=== PATIENT | male | born 1960 | race Caucasian/White ===

== ENCOUNTER → 2017-09-04 19:59 | Outpatient (CLI) | payer MEDICARE ==
[2017-09-04 20:25] LABS: APPEARANCE HAZY (CLEAR); BILIRUBIN NEGATIVE (NEGATIVE); COLOR YELLOW (YELLOW); GLUCOSE NEGATIVE (NEGATIVE); KETONE NEGATIVE (NEGATIVE); NITRITE NEGATIVE (NEGATIVE); PROTEIN NEGATIVE (NEGATIVE); UROBILINOGEN NORMAL (NORMAL)
[2017-09-04 20:27] LABS: BACTERIA FEW /hpf (NONE SEEN)
[2017-09-04 20:39] LABS: INR 2.87 (0.85-1.17); PROTIME 29.4 SECONDS (11.6-15.0)
== END | disposition home or self-care (01) ==
LOC: D.LABREF 19:59
PROVIDERS: Internal Medicine Cardiovascular Disease
DX: N39.0 Urinary tract infection, site not specified (principal)

== ENCOUNTER → 2017-10-05 18:54 | Outpatient (CLI) | payer SELFPAY ==
[2017-10-05 20:47] LABS: PROTIME 55.8 SECONDS (11.6-15.0)
[2017-10-05 20:48] LABS: INR 6.49 (0.85-1.17)
== END | disposition home or self-care (01) ==
LOC: D.LABREF 18:54
PROVIDERS: Family Medicine
DX: I48.91 Unspecified atrial fibrillation (principal)

== ENCOUNTER → 2017-10-08 13:52 | Outpatient (CLI) | payer SELFPAY ==
[2017-10-08 15:02] LABS: INR 2.99 (0.85-1.17); PROTIME 30.3 SECONDS (11.6-15.0)
[2017-10-08 19:58] LABS: APPEARANCE HAZY (CLEAR); BILIRUBIN NEGATIVE (NEGATIVE); COLOR YELLOW (YELLOW); GLUCOSE NEGATIVE (NEGATIVE); KETONE NEGATIVE (NEGATIVE); NITRITE NEGATIVE (NEGATIVE); PROTEIN TRACE mg/dL (NEGATIVE); UROBILINOGEN NORMAL (NORMAL)
[2017-10-08 19:59] LABS: BACTERIA FEW /hpf (NONE SEEN); EPITHELIAL CELLS RARE /hpf (0-5); RED CELLS - URINE 0-5 /hpf (0-5)
== END | disposition home or self-care (01) ==
LOC: D.LABREF 13:52
PROVIDERS: Internal Medicine Cardiovascular Disease
DX: I48.91 Unspecified atrial fibrillation (principal)

== ENCOUNTER → 2017-10-13 18:31 | Outpatient (CLI) | payer SELFPAY ==
[2017-10-13 19:16] LABS: INR 1.83 (0.85-1.17); PROTIME 20.6 SECONDS (11.6-15.0)
== END | disposition home or self-care (01) ==
LOC: D.LABREF 18:31
PROVIDERS: Internal Medicine Cardiovascular Disease
DX: I48.91 Unspecified atrial fibrillation (principal)

== ENCOUNTER → 2017-10-19 17:02 | Outpatient (CLI) | payer OTHER ==
[2017-10-19 19:09] LABS: INR 3.13 (0.85-1.17); PROTIME 31.4 SECONDS (11.6-15.0)
== END | disposition home or self-care (01) ==
LOC: D.LABREF 17:02
PROVIDERS: Internal Medicine Cardiovascular Disease
DX: I48.91 Unspecified atrial fibrillation (principal)

== ENCOUNTER → 2017-10-29 18:10 | Outpatient (CLI) | payer OTHER ==
[2017-10-29 19:26] LABS: APPEARANCE HAZY (CLEAR); BILIRUBIN NEGATIVE (NEGATIVE); COLOR AMBER (YELLOW); GLUCOSE NEGATIVE (NEGATIVE); KETONE NEGATIVE (NEGATIVE); NITRITE POSITIVE (NEGATIVE); PROTEIN 1+ mg/dL (NEGATIVE); SPECIFIC GRAVITY 1.005 (1.005-1.020); UROBILINOGEN NORMAL (NORMAL)
[2017-10-29 19:28] LABS: AMORPHOUS SEDIMENT <1+ /lpf (NONE SEEN); BACTERIA MODERATE /hpf (NONE SEEN)
== END | disposition home or self-care (01) ==
LOC: D.LABREF 18:10
PROVIDERS: Family Medicine
DX: N39.0 Urinary tract infection, site not specified (principal)

== ENCOUNTER → 2017-11-02 19:55 | Outpatient (CLI) | payer OTHER ==
[2017-11-02 21:44] LABS: INR 2.06 (0.85-1.17); PROTIME 22.6 SECONDS (11.6-15.0)
== END | disposition home or self-care (01) ==
LOC: D.LABREF 19:55
PROVIDERS: Internal Medicine Cardiovascular Disease
DX: I48.91 Unspecified atrial fibrillation (principal)

== ENCOUNTER → 2017-11-12 15:14 | Outpatient (CLI) | payer OTHER ==
[2017-11-12 16:22] LABS: INR 1.79 (0.85-1.17); PROTIME 20.3 SECONDS (11.6-15.0)
== END | disposition home or self-care (01) ==
LOC: D.LABREF 15:14
PROVIDERS: Internal Medicine Cardiovascular Disease
DX: I48.91 Unspecified atrial fibrillation (principal)

== ENCOUNTER → 2017-11-23 13:39 | Outpatient (CLI) | payer OTHER ==
[2017-11-23 14:22] LABS: APPEARANCE SLT CLOUDY (CLEAR); BACTERIA MODERATE /hpf (NONE SEEN); BILIRUBIN NEGATIVE (NEGATIVE); COLOR YELLOW (YELLOW); EPITHELIAL CELLS OCC /hpf (0-5); GLUCOSE NEGATIVE (NEGATIVE); KETONE NEGATIVE (NEGATIVE); MUCUS <1+ /lpf (NONE SEEN); NITRITE NEGATIVE (NEGATIVE); PROTEIN NEGATIVE (NEGATIVE); SPECIFIC GRAVITY 1.015 (1.005-1.020); UROBILINOGEN NORMAL (NORMAL); WHITE CELLS - URINE 25-50 /hpf (0-5); YEAST >1+ WITH HYPHAE /hpf (NONE SEEN)
== END | disposition home or self-care (01) ==
LOC: D.LABREF 13:39
PROVIDERS: Family Medicine
DX: N39.0 Urinary tract infection, site not specified (principal)

== ENCOUNTER → 2017-11-24 12:57 | Outpatient (CLI) | payer OTHER ==
[2017-11-25 14:07] LABS: INR 2.15 (0.85-1.17); PROTIME 23.4 SECONDS (11.6-15.0)
== END | disposition home or self-care (01) ==
LOC: D.LABREF 12:57
PROVIDERS: Family Medicine
DX: I48.91 Unspecified atrial fibrillation (principal)

== ENCOUNTER → 2017-11-30 15:00 | Outpatient (CLI) | payer OTHER ==
[2017-12-01 07:23] LABS: INR 2.58 (0.85-1.17)
== END ==
LOC: D.ER 15:00
PROVIDERS: Internal Medicine Cardiovascular Disease
DX: Z86.711 Personal history of pulmonary embolism (principal)

== ENCOUNTER → 2017-12-07 16:45 | Outpatient (CLI) | payer OTHER ==
[2017-12-07 20:55] LABS: INR 4.47 (0.85-1.17); PROTIME 41.7 SECONDS (11.6-15.0)
== END | disposition home or self-care (01) ==
LOC: D.LAB 16:45
PROVIDERS: Family Medicine
DX: Z51.81 Encounter for therapeutic drug level monitoring (principal); Z79.01 Long term (current) use of anticoagulants

== ENCOUNTER → 2018-01-04 21:35 | Outpatient (CLI) | payer OTHER ==
[2018-01-04 23:04] LABS: INR 2.59 (0.85-1.17)
== END | disposition home or self-care (01) ==
LOC: D.LABREF 21:35
PROVIDERS: Internal Medicine Cardiovascular Disease
DX: I48.91 Unspecified atrial fibrillation (principal)

== ENCOUNTER → 2018-02-05 12:26 | Outpatient (CLI) | payer MEDICARE, MEDICAID ==
[2018-02-05 13:01] LABS: INR 2.18 (0.85-1.17); PROTIME 23.6 SECONDS (11.6-15.0)
== END | disposition home or self-care (01) ==
LOC: D.LABREF 12:26
PROVIDERS: Internal Medicine Cardiovascular Disease
DX: Z51.81 Encounter for therapeutic drug level monitoring (principal); Z79.01 Long term (current) use of anticoagulants; I48.91 Unspecified atrial fibrillation

== ENCOUNTER → 2018-03-03 19:32 | Outpatient (CLI) | payer MEDICARE, MEDICAID ==
[2018-03-03 21:01] LABS: COLOR YELLOW (YELLOW)
[2018-03-03 21:02] LABS: AMORPHOUS SEDIMENT >1+ /lpf (NONE SEEN); APPEARANCE HAZY (CLEAR); BACTERIA FEW /hpf (NONE SEEN); BILIRUBIN NEGATIVE (NEGATIVE); EPITHELIAL CELLS RARE /hpf (0-5); GLUCOSE NEGATIVE (NEGATIVE); KETONE NEGATIVE (NEGATIVE); NITRITE POSITIVE (NEGATIVE); PROTEIN TRACE mg/dL (NEGATIVE); RED CELLS - URINE NONE SEEN /hpf (0-5); SPECIFIC GRAVITY 1.005 (1.005-1.020); UROBILINOGEN NORMAL (NORMAL)
== END | disposition home or self-care (01) ==
LOC: D.LABREF 19:32
PROVIDERS: Family Medicine
DX: Z46.6 Encounter for fitting and adjustment of urinary device (principal); N31.9 Neuromuscular dysfunction of bladder, unspecified; Z87.440 Personal history of urinary (tract) infections

== ENCOUNTER → 2018-06-15 09:26 | Outpatient (CLI) | payer MEDICARE, MEDICAID ==
[2018-06-15 09:55] LABS: ALBUMIN 2.4 g/dL (3.4-5.0); ANION GAP 13.3 mmol/L (8-16); BILIRUBIN - TOTAL 0.31 mg/dL (0.2-1.3); CALCIUM 8.4 mg/dL (8.5-10.1); CARBON DIOXIDE 22.9 mmol/L (21.0-32.0); CREATININE - SERUM 1.8 mg/dL (0.6-1.3); POTASSIUM - SERUM 5.2 mmol/L (3.5-5.1); PROTEIN - SERUM 7.5 g/dL (6.4-8.2)
== END | disposition home or self-care (01) ==
LOC: D.LABREF 09:26
PROVIDERS: Family Medicine
DX: E87.6 Hypokalemia (principal); I50.9 Heart failure, unspecified

== ENCOUNTER → 2018-07-05 12:12 | Outpatient (CLI) | payer MEDICARE, MEDICAID ==
[2018-07-05 13:10] LABS: ANION GAP 11.1 mmol/L (8-16); CALCIUM 8.4 mg/dL (8.5-10.1); CARBON DIOXIDE 26.6 mmol/L (21.0-32.0); CREATININE - SERUM 1.6 mg/dL (0.6-1.3); POTASSIUM - SERUM 3.7 mmol/L (3.5-5.1)
== END | disposition home or self-care (01) ==
LOC: D.LABREF 12:12
PROVIDERS: Family Medicine
DX: E87.5 Hyperkalemia (principal); I48.91 Unspecified atrial fibrillation; I50.9 Heart failure, unspecified

== ENCOUNTER → 2018-09-09 13:26 | Outpatient (CLI) | payer MEDICARE, MEDICAID ==
[2018-09-19 16:07] LABS: AEROBE ID Final report (())
== END | disposition home or self-care (01) ==
LOC: D.LABREF 13:26
PROVIDERS: Family Medicine
DX: R30.0 Dysuria (principal); R50.9 Fever, unspecified

== ENCOUNTER → 2018-10-27 12:59 | Outpatient (CLI) | payer MEDICARE ==
[2018-10-27 16:39] LABS: APPEARANCE HAZY (CLEAR); BILIRUBIN NEGATIVE (NEGATIVE); COLOR YELLOW (YELLOW); GLUCOSE NEGATIVE (NEGATIVE); KETONE NEGATIVE (NEGATIVE); NITRITE POSITIVE (NEGATIVE); PROTEIN 1+ mg/dL (NEGATIVE); UROBILINOGEN NORMAL (NORMAL)
[2018-10-27 16:40] LABS: BACTERIA MANY /hpf (NONE SEEN); RED CELLS - URINE 0-5 /hpf (0-5); WHITE CELLS - URINE >50 /hpf (0-5)
== END | disposition home or self-care (01) ==
LOC: D.LABREF 12:59
PROVIDERS: ATTEND Family Medicine
DX: N23 Unspecified renal colic (principal); Z87.440 Personal history of urinary (tract) infections

== ENCOUNTER → 2019-01-04 18:15 | Outpatient (CLI) | payer MEDICARE | END | disposition home or self-care (01) | LOC: D.LABREF 18:15 | PROVIDERS: ATTEND Nurse Practitioner Gerontology | DX: R33.9 Retention of urine, unspecified (principal); R82.90 Unspecified abnormal findings in urine ==

== ENCOUNTER 2019-03-09 23:26 | Inpatient (IN) | payer MEDICARE, MEDICAID ==
[~2019-03-09] VITALS: Ht 193 cm; Wt 126.9 kg
[2019-03-09] MEDS ORDERED: BAYER CHEWABLE81 MG PO (23:49)
[2019-03-09] MEDS ORDERED: ZYLOPRIM100 MG PO (23:49)
[2019-03-09] MEDS ORDERED: COREG 3.1253.125 MG PO (23:49)
[2019-03-09] MEDS ORDERED: BUMETANIDE0.5 MG PO (23:49)
[2019-03-09] MEDS ORDERED: LIPITOR40 MG PO (23:49)
[2019-03-09] MEDS ORDERED: CELEXA20 MG PO (23:50)
[2019-03-09] MEDS ORDERED: HYDROCODON-ACE1 EAC7 PO (23:50)
[2019-03-09] MEDS ORDERED: ENTRESTO 24 MG1 EACH PO (23:50)
[2019-03-09] MEDS ORDERED: MAGNESIUM OXID250 MG PO (23:50)
[2019-03-09] MEDS ORDERED: KEPPRA500 MG PO (23:50)
[2019-03-09] MEDS ORDERED: K-DUR20 MEQ PO (23:51)
[2019-03-09] MEDS ORDERED: ATHLETE'S FOOT15 GM TOPICAL (23:51)
[2019-03-09] MEDS ORDERED: COUMADIN5 MG PO (23:51)
[2019-03-09] MEDS ORDERED: FLOMAX0.4 MG PO (23:51)
[2019-03-10 00:25] LABS: BASOPHILS 0.1 % (0-2); EOSINOPHILS 0.1 % (0-7); HEMATOCRIT 26.3 % (42.0-54.0); HEMOGLOBIN 8.8 g/dL (13.5-17.5); IMMATURE GRANULOCYTES 0.3 % (0-5); LYMPHOCYTES 9.6 % (15-50); MCH 31.3 pg (26.0-34.0); MCHC 33.5 g/dL (31.0-37.0); MCV 93.6 fL (80.0-100.0); MEAN PLATELET VOLUME 11.9 fL (7.4-10.4); MONOCYTES 11.1 % (2-11); NEUTROPHILS 78.8 % (40-80); PLATELET COUNT 229 10x3/uL (130-400); RBC 2.81 10x6/uL (4.20-6.10); RDW 16.8 % (11.5-14.5); WBC 19.8 10x3/uL (4.8-10.8)
[2019-03-10 00:33] LABS: ALKALINE PHOSPHATASE 146 U/L (46-116); ALT (SGPT) 473 U/L (10-68); CALC OSMOLALITY 286 mosm/kg (275-300); CALCIUM 7.2 mg/dL (8.5-10.1); CARBON DIOXIDE 21.2 mmol/L (21.0-32.0); CHLORIDE - SERUM 108 mmol/L (98-107); CREATININE - SERUM 1.6 mg/dL (0.6-1.3); PROTEIN - SERUM 6.7 g/dL (6.4-8.2); SODIUM 139 mmol/L (136-145); UREA NITROGEN 28 mg/dL (7-18); eGFR NON AFRICAN AMERICAN 48 mL/min (90-120)
[2019-03-10 00:36] LABS: GLUCOSE 146 mg/dL (74-106)
[2019-03-10 00:40] LABS: APTT 45.4 SECONDS (22.8-39.4); INR 2.33 (0.85-1.17); PROTIME 24.8 SECONDS (11.6-15.0)
[2019-03-10 00:45] LABS: CKMB 0.5 U/L (0.0-3.6); CREATINE KINASE 21 UL (21-232); MAGNESIUM - SERUM 1.7 mg/dL (1.8-2.4); THYROID STIMULATING HORMONE 1.62 uIU/mL (0.36-3.74); TROPONIN-I 0.052 ng/mL (0.000-0.060)
--- NOTE | 2019-03-10 00:47 | NUR ---
PT TO RADIOLOGY.
--- NOTE | 2019-03-10 01:24 | NUR ---
PT RETURNED FROM RADIOLOGY.
[2019-03-10 02:27] LABS: APPEARANCE CLOUDY (CLEAR); BILIRUBIN NEGATIVE (NEGATIVE); COLOR YELLOW (YELLOW); GLUCOSE NEGATIVE (NEGATIVE); KETONE NEGATIVE (NEGATIVE); NITRITE POSITIVE (NEGATIVE); PROTEIN 2+ mg/dL (NEGATIVE); SPECIFIC GRAVITY 1.015 (1.005-1.020); UROBILINOGEN NORMAL (NORMAL)
[2019-03-10 02:28] LABS: BACTERIA MANY /hpf (NONE SEEN); EPITHELIAL CELLS 0-5 /hpf (0-5); RED CELLS - URINE 0-5 /hpf (0-5); UDS - AMPHET NEGATIVE QUAL (NEGATIVE); UDS - BARB NEGATIVE QUAL (NEGATIVE); UDS - BENZO NEGATIVE QUAL (NEGATIVE); UDS - COCAINE NEGATIVE QUAL (NEGATIVE); UDS - OPIATE POSITIVE QUAL (NEGATIVE); UDS - PCP NEGATIVE QUAL (NEGATIVE); UDS - THC NEGATIVE QUAL (NEGATIVE)
[2019-03-10 04:39] VITALS: BP 130/90; BMI 42.7
--- NOTE | 2019-03-10 05:42 | NUR ---
I have reviewed this patient and I concur with the Shift Assessment completed by the Licensed Practical Nurse today this shift.
--- NOTE | 2019-03-10 08:10 | NUR ---
ROUSES TO VERBAL STIMULATION. ORIENTED TO SELF. NON VERBAL AT THIS TIME. DIFFICULT TO ASSESS ORIENTATION. LUNGS ARE CLEAR BILATERALLY, NO COUGH NOTED. SKIN IS INTACT WITHOUT REDNESS. STAHL PATENT WITH CLEAR YELLOW URINE. IV TO LEFT HAND IS PATENT WITHOUT REDNESS AT INSERTION SITE. NO NEEDS. NOTED.
--- NOTE | 2019-03-10 09:30 | NUR ---
PATIENT IS NPO FOR TESTING. NO NEEDS NOTED.
[2019-03-10 09:41] VITALS: BP 115/77
[2019-03-10 13:49] LABS: % SATURATION 8 % (15-55); IRON 11 ug/dl (35-150); TOTAL IRON BIND CAPACITY 128 ug/dl (260-445); UNSAT IRON BIND CAPACITY 117 ug/dl (150-375)
[2019-03-10 13:51] VITALS: BP 122/78
[2019-03-10 14:04] VITALS: BMI 42.6
--- NOTE | 2019-03-10 16:43 | NUR ---
2MG MORPHINE IV GIVEN PER DR DURHAM FOR [facility] SCAN.
--- NOTE | 2019-03-10 16:49 | NUR ---
PT REFUSED ABG
--- NOTE | 2019-03-10 17:00 | NUR ---
RETURNED FROM [facility] SCAN. YELLING OUT HE WANTS TO EAT. NO NEEDS. NOTED.
--- NOTE | 2019-03-10 21:00 | NUR ---
FSBS 103 NO INSULIN GIVEN AT THIS TIME PER SS.
[2019-03-10 21:13] VITALS: BP 107/68
[2019-03-11 00:29] VITALS: BP 93/63
--- NOTE | 2019-03-11 00:33 | NUR ---
PT RESTING IN BED. EYES CLOSED. NO SIGNS OF DISTRESS. BREATHING EVEN AND UNLABORED. IV SITE LT HAND DRESSING CLEAN DRY AND INTACT. NO SIGNS OF INFECTION. BOWEL SOUNDS ACTIVE. TELE MONITOR ON 9 CONT A-FIB. CHRONIC STAHL CATH. WILL CONTINUE PLAN OF CARE. CALL LIGHT IN REACH. BED LOWERED AND LOCKED. BED RAILS UPX2. TIMO ALARM ON.
--- NOTE | 2019-03-11 02:19 | NUR ---
I have reviewed this patient and I concur with the Shift Assessment completed by the Licensed Practical Nurse today this shift.
[2019-03-11 05:28] VITALS: BP 112/60
--- NOTE | 2019-03-11 06:24 | NUR ---
FSBS 86 NO INSULIN GIVEN PER SS.
[2019-03-11 07:28] LABS: ALBUMIN 1.7 g/dL (3.4-5.0); ANION GAP 13.6 mmol/L (8-16); BILIRUBIN - TOTAL 1.46 mg/dL (0.2-1.3); CALCIUM 7.3 mg/dL (8.5-10.1); CREATININE - SERUM 1.7 mg/dL (0.6-1.3); POTASSIUM - SERUM 3.6 mmol/L (3.5-5.1); PROTEIN - SERUM 6.3 g/dL (6.4-8.2)
[2019-03-11 07:35] LABS: HEMATOCRIT 28.2 % (42.0-54.0); HEMOGLOBIN 9.2 g/dL (13.5-17.5); MCH 30.9 pg (26.0-34.0); MCHC 32.6 g/dL (31.0-37.0); MCV 94.6 fL (80.0-100.0); MEAN PLATELET VOLUME 11.8 fL (7.4-10.4); PLATELET COUNT 196 10x3/uL (130-400); RBC 2.98 10x6/uL (4.20-6.10); WBC 24.4 10x3/uL (4.8-10.8)
[2019-03-11 08:03] LABS: INR 3.15 (0.85-1.17); PROTIME 31.6 SECONDS (11.6-15.0)
[2019-03-11 09:40] LABS: LYMPHOCYTES 9 % (15-50); MONOCYTES 16 % (2-11); NEUTROPHILS 74 % (40-80); PLATELET ESTIMATE NORMAL
[2019-03-11 09:42] LABS: ACANTHOCYTES OCC; CRENATED CELLS OCC; ROULEAUX OCC
[2019-03-11 10:43] VITALS: BP 101/61
[2019-03-11 11:10] LABS: HEPATITIS C ANTIBODY 0.1 S/CO RAT (0.0-0.9)
[2019-03-11 12:11] LABS: APTT 50.8 SECONDS (22.8-39.4)
--- NOTE | 2019-03-11 13:41 | NUR ---
2 UNITS OF FFP GIVEN TO PATIENT WITH NO DIFFICULTIES. PATIENT REPOSTIONED FOR COMFORT WITH EXCORIATION NOTED TO BILAT BUTTOCKS. REPORT CALLED TO MED 2 NURSE, PATIENT BEING TRANSPORTED DUE TO NEED FOR CARDIAC DRIP MEDICATIONS. PATIENT TAKEN BY BED TO ROOM 1115.
--- NOTE | 2019-03-11 14:11 | NUR ---
TRANSFERED FROM AL BY BED. BED WEIGHT DONE. DOBUTREX GTT STARTED. WILL CONT. PLAN OF CARE.
--- NOTE | 2019-03-11 15:13 | NUR ---
IV STARTED TO RIGHT WRIST WITH 22 GAUGE CATH BY GOLDIE WEINER. LINE IS PATENT.
--- NOTE | 2019-03-11 16:51 | CN ---
PATIENT NAME:YUKI COFFMAN MEDICAL RECORD: [id number] : 62 LOCATION:[facility] D.2115 ADMIT DATE: 03/10/19 ACCOUNT: [id number] CONSULTING PHYSICIAN: SHO SMITH MD REFERRING PHYSICIAN: FIGUEROA OTERO MD DATE OF CONSULTATION: 03/11/2019 CARDIOLOGY CONSULT DIAGNOSES: 1. Preoperative evaluation cholecystectomy. 2. Cholecystitis. 3. Dilated cardiomyopathy. 4. Congestive heart failure, chronic systolic dysfunction. 5. Hypertension. 6. Hyperlipidemia. HISTORY OF PRESENT ILLNESS: Mr. Coffman is followed by another mortgage loan officer. He could not tell me who. He has been told in the past that his heart function is not good. It is unknown if he has undergone cardiac catheterization or what workup he has had for this. We have not seen him in the past. He has an echocardiogram from 2010 here that was a normal ejection fraction, but he is on Coreg and Entresto as well as Coumadin for his heart. He is not a good historian and cannot tell me really any details of his cardiac workup. PHYSICAL EXAMINATION: GENERAL APPEARANCE: Well-nourished, well-developed, appears stated age. Level of distress, comfortable. PSYCHIATRIC: Mental status, alert, normal affect. Orientation, oriented to time, place and person. EYES: Lids and conjunctiva, noninjected. No discharge, no pallor. ENT: Lips, teeth, gums, normal dentition. Oropharynx, no cyanosis, no pallor. NECK: Carotid arteries, bilateral normal upstroke, no bruits, no thrills. JUGULAR VEINS: No jugular venous pressure or distention. CERVICAL LYMPH NODES: Nontender, nonenlarged. THYROID: Not enlarged. Nontender. No nodules. LUNGS: Respiratory effort, unlabored. CHEST: Normal curvature. No thoracic deformity. No chest wall tenderness. Percussion, resonant. Auscultation, clear. No wheezes, no rales, no rhonchi. CARDIOVASCULAR: Precordial exam, nondisplaced. No heaves or pericardial thrills. Rate and rhythm, regular. Heart sounds, normal S1, normal S2. No S3, no gallop, no rub. Systolic murmur, not heard. Diastolic murmur, not heard. EXTREMITIES: No cyanosis, no edema. Peripheral pulses, full and equal in all extremities, except as noted. No bruits appreciated. ABDOMEN: Soft, nondistended. Normal aorta. No bruit. Nontender. No masses. Liver, nontender, no hepatomegaly. Spleen, nontender, no splenomegaly. MUSCULOSKELETAL: No joint tenderness. No joint swelling. No erythema. NEUROLOGICAL: Normal gait, normal strength, normal tone. SKIN: Warm and dry. OVERALL IMPRESSION: Cardiomyopathy on echocardiogram here. His ejection fraction is in the 20% to 25% range. Proceed with surgery at acceptable cardiac risk. Would put him on dobutamine to get him through surgery and use as little IV fluids as possible to not exacerbate congestive heart failure and pulmonary edema. CONSULT REPORT [id number] YUKI COFFMAN TRANSINT:[id number] Voice Confirmation ID: [id number] DOCUMENT ID: [id number] SHO SMITH MD at 1651 CC: [id number] DICTATION DATE: 03/11/19 1136 GROMMET WORKER: 03/11/19 1244 ADM IN [facility] [address] [place] [id number]
--- NOTE | 2019-03-11 16:51 | EC ---
PATIENT:YUKI ESPINOZA DATE OF SERVICE: 03/10/19 SEX: M MEDICAL RECORD: [id number] DATE OF : 62 LOCATION:D.M2 D.211 AGE OF PATIENT: 58 ADMISSION DATE: 03/10/19 REFERRING PHYSICIAN: INTERPRETING PHYSICIAN: SHO CHAPA MD ECHOCARDIOGRAM REPORT ECHO CHARGES 4 ECHO COMPLETE Date: 03/10/19 CLINICAL DIAGNOSIS: CHF ECHOCARDIOGRAPHIC MEASUREMENTS (adult normal given) AC root (d.<3.7cm) 3.7 cm LV Septum d (<1.2 cm> 1.3 cm Valve Excursion 2.4 cm LV Septum (systole) 2.3 cm Left Atria (s.<4.0cm> 5.2 cm LVPW d(<1.2cm) 1.7 cm RV (d.<2.3cm) 3.5 cm LVPW (sytole) 2.2 cm LV diastole(<5.6CM) 6.5 cm MV E-F(>70mm/sec) cm LV systole 4.3 cm LVOT Diameter 2.3 cm MV exc.(>10mm) cm Est.ejection fraction (50-75%) % DOPPLER: LVIT cm/sec A 38.0 cm/sec E 100 cm/sec LA cm/sec RVSP 38.2 mmHg LVOT 74.0 cm/sec AOP1/2T m/s Asc. Ao 127 cm/sec RVOT 61.0 cm/sec RA cm/sec PA 82.0 cm/sec AV Gradient Peak 6.4 mmHg AV Mean 3.7 mmHg AV Area 2.9 cm MV Gradient Peak 4.2 mmHg MV Mean 1.5 mmHg MV Area cm COMMENTS: Clinical Education Assistant: Jacqueline LOWERYOE External Auditor: 1 Dr. Chapa TAPE# PACS Pericardial Effusion Y DATE OF SERVICE: 03/10/2019 PROCEDURE: Echocardiogram. FINDINGS: 1. Left ventricular chamber size is mildly dilated. Left ventricular systolic function is markedly reduced at 25%. 2. Left atrium is enlarged at 5.2 cm. Right atrium and right ventricular chamber sizes are as well mildly dilated. 3. Valvular structures have normal structure and motion. ECHOCARDIOGRAM REPORT [id number] YUKI ESPINOZA 4. Doppler interrogation reveals moderate mitral regurgitation, moderate tricuspid regurgitation, no other valvular insufficiency or stenosis. Pulmonary systolic pressure is estimated 38 mmHg. 5. Small pericardial effusion is present. This is not hemodynamically significant. TRANSINT:[id number] Voice Confirmation ID: [id number] DOCUMENT ID: [id number] SHO CHAPA MD at 1651 CC: [id number] DICTATION DATE: 03/11/19 1049 ACCESS ANALYST: 03/11/19 1104 ADM IN [place] [id number] [place] [id number]
[2019-03-11 17:31] VITALS: BP 124/79
[2019-03-11 20:00] VITALS: BP 125/78
[2019-03-12] VITALS: BP 109/68
[2019-03-12 04:30] VITALS: BP 101/59
--- NOTE | 2019-03-12 06:00 | NUR ---
PT SLEPT WELL AFTER HE MADE IT VERY CLEAR THAT HE WAS HURTING AND WANTED PAIN MED DURING THE NIGHT. IV DILAUDID GIVEN AND PT HELD NURSES HAND AND SAID "THANK YOU". STAHL PATENT TO BEDSIDE DRAIN BAG. IV DOBUTAMINE INFUSING AT 38.8ML/HR. TURNED EVERY 2 HOURS. PT DID REFUSE AM LABS, BUT ALLOWED NURSE TO DO FSBS. REPORT TO ONCOMING NURSE TO FOLLOW UP ON IF PT IS TRULY NPO OR IF HE CAN HAVE A DIET. CALL LIGHT IN REACH.
--- NOTE | 2019-03-12 07:15 | NUR ---
RECEIVED PT IN BED EYES CLOSED RESP UNLABORED SKIN W/D COLOR PALE NAD NOTED WILL CONTINUE TO MONITOR
[2019-03-12 08:06] VITALS: BP 101/69
[2019-03-12 12:26] VITALS: BP 114/73
--- NOTE | 2019-03-12 12:30 | NUR ---
REVIEWED DISCHARGE INSTRUCTIONS WITH PT STATES UNDERSTANDING COPY GIVEN DCD SALINE LOCK TO LFA WITH IV CATHETER INTACT SITE FREE OF REDNESS OR EDEMA PT DISCHARGED HOME LEFT UNIT STABLE CONDITION IN WALKING WITH STAFF TO ER TO BE PICKED UP ALL PERSONAL BELONGINGS WITH PT
--- NOTE | 2019-03-12 15:32 | MORECARE ---
CASE MANAGEMENT DISCHARGE SUMMARY PATIENT: YUKI ESPINOZA UNIT: [id number] ADM DATE: 03/10/19 AGE: 58 : 62 SEX: M ROOM/BED: D.2115 AUTHOR: SUYAPA VEAG PHYSICIAN: REFERRING PHYSICIAN: FIGUEROA OTERO MD DATE OF SERVICE: 03/12/19 Discharge Plan Patient Name: YUKI ESPINOZA Facility: [facility]:[place] : 1960 Planned Disposition: Anticipated Discharge Date: Discharge Date: Expected LOS: Initial Reviewer: [email or web address] Initial Review Date: 03/12/2019 Generated: 03/12/19 4:32 pm Patient Name: YUKI ESPINOZA Page [phone] at 1532 All edits/amendments must be made on the electronic document DICTATION DATE: 03/12/19 1532 WAREHOUSE UNLOADER: SHAHANA 03/12/19 1532 RPT#: [id number] DC DATE: STATUS: ADM IN [facility] [address] [place] [address] END OF REPORT
[2019-03-12 15:59] VITALS: BP 110/78
[2019-03-12 18:22] LABS: BASOPHILS 0 % (0-2); EOSINOPHILS 0.1 % (0-7); HEMATOCRIT 26.5 % (42.0-54.0); HEMOGLOBIN 8.8 g/dL (13.5-17.5); IMMATURE GRANULOCYTES 0.4 % (0-5); LYMPHOCYTES 4.1 % (15-50); MCH 31.2 pg (26.0-34.0); MCHC 33.2 g/dL (31.0-37.0); MEAN PLATELET VOLUME 11.3 fL (7.4-10.4); MONOCYTES 8.2 % (2-11); NEUTROPHILS 87.2 % (40-80); PLATELET COUNT 189 10x3/uL (130-400); RBC 2.82 10x6/uL (4.20-6.10); RDW 16.6 % (11.5-14.5); WBC 21.9 10x3/uL (4.8-10.8)
[2019-03-12 18:40] LABS: ANION GAP 11.7 mmol/L (8-16); BILIRUBIN - TOTAL 2.28 mg/dL (0.2-1.3); CALCIUM 7.2 mg/dL (8.5-10.1); CARBON DIOXIDE 23.7 mmol/L (21.0-32.0); POTASSIUM - SERUM 3.4 mmol/L (3.5-5.1)
[2019-03-12 18:41] LABS: INR 1.85 (0.85-1.17); PROTIME 20.7 SECONDS (11.6-15.0)
--- NOTE | 2019-03-12 19:59 | NUR ---
INITIAL ROUNDS AND ASSESSMENT COMPLETED. PT RESTING IN BED. VERY ANXIOUS, DIFFICULTY EXPRESSING HIMSELF. UCAF/109 PER TELEMETRY. DOBUTAMINE DRIP AT 10MCG/KG/MIN INFUSING TO RFA. LEFT HAND WITH NS @ KVO AND IRON FINISHING UP. NONLABORED RESPIRATIONS ON ROOM AIR. NOTED LEFT HEEL SPONGY TO TONGUE, ELEVATED OFF BED. SPOKE WITH IS SUPPORT ANALYST ABOUT EXCORIATION OF REAR AND APPLYING BUTT CREAM OR ELLEN EVERY TIME CARE IS PROVIDED. STAHL PATENT TO BEDSIDE DRAIN. WILL MONITOR LEVEL OF PAIN/DISCOMFORT AND TREAT. CPOC.
[2019-03-12 20:00] VITALS: BP 117/64
[2019-03-13] VITALS: BP 122/59
--- NOTE | 2019-03-13 01:42 | NUR ---
PT HAS SLEPT SINCE RECIEVING IV PAIN MED. IV DOBUTAMINE INFUSING. NO DISTRESS. LEFT HEEL BRIDGED. ELLEN HAS BEEN APPLIED TO HIS EXCORIATED REAR END. CPOC.
[2019-03-13 04:30] VITALS: BP 106/62
[2019-03-13 07:18] LABS: HEMOGLOBIN 8.4 g/dL (13.5-17.5); MCH 30.7 pg (26.0-34.0); MCHC 32.3 g/dL (31.0-37.0); MCV 94.9 fL (80.0-100.0); MEAN PLATELET VOLUME 11.5 fL (7.4-10.4); PLATELET COUNT 181 10x3/uL (130-400); RBC 2.74 10x6/uL (4.20-6.10); RDW 16.8 % (11.5-14.5); WBC 20.4 10x3/uL (4.8-10.8)
[2019-03-13 07:30] LABS: ALBUMIN 1.8 g/dL (3.4-5.0); ANION GAP 10.3 mmol/L (8-16); BILIRUBIN - TOTAL 2.01 mg/dL (0.2-1.3); CALCIUM 7.2 mg/dL (8.5-10.1); POTASSIUM - SERUM 3.3 mmol/L (3.5-5.1); PROTEIN - SERUM 5.6 g/dL (6.4-8.2)
[2019-03-13 07:51] VITALS: BP 105/64
[2019-03-13 09:02] LABS: CRENATED CELLS 2+; EOSINOPHILS 1 % (0-7); HYPOCHROMASIA 3+; LYMPHOCYTES 2 % (15-50); MONOCYTES 1 % (2-11); NEUTROPHILS 93 % (40-80); PLATELET ESTIMATE NORMAL
[2019-03-13 09:03] LABS: ELLIPTOCYTES 1+; POIKILOCYTOSIS 2+
[2019-03-13 10:54] VITALS: BP 99/55
--- NOTE | 2019-03-13 13:06 | NUR ---
REPOSITIONED Q 2. DILAUDID 1MG GIVEN WITH ZOFRAN FOR C/O PAIN AND N/V NOTED. WILL MONITOR.
[2019-03-13 13:08] LABS: INR 1.94 (0.85-1.17); PROTIME 21.5 SECONDS (11.6-15.0)
[2019-03-13 14:41] VITALS: BP 115/67
--- NOTE | 2019-03-13 16:13 | NUR ---
CONSENTS SIGNED BY PT AND POA. WILL CONT. PLAN OF CARE.
[2019-03-13 20:00] VITALS: BP 118/73
--- NOTE | 2019-03-13 20:13 | NUR ---
INITIAL ROUNDS AND ASSESSMENT COMPLETED. PT PULLED UP AND REPOSITIONED. LEFT HEEL BRIDGED ON PILLOW. CALMOSEPTINE ON EXCORIATED REAR. CURRENTLY RECIEVING IV POTASSIUM RIDERS. STAHL PATENT TO BEDSIDE DRAIN BAG. WILL BE NPO AFTER MIDNIGHT FOR CAM STERLING IN AM PER DR EDWARDS. PT HAS EXPRESSIVE APHASIA AND CAN STILL COMMUNICATE THAT HE IS HURTING. WILL MEDICATE WITH IV DILAUDID TO PROMOTE OPTIMAL LEVEL OF COMFORT. PT IS CURRENTLY CLEAN AND DRY. CPOC.
[2019-03-14] VITALS: BP 96/55
--- NOTE | 2019-03-14 01:04 | NUR ---
PT HAS NOW COMPLETED # 3 OF IV POTASSIUM RIDERS. REMAINS ON DOBUTAMINE DRIP. LEFT HEEL BRIDGED ON PILLOW. ELLEN TO RED REAR. CURRENTLY WITH EYES CLOSED. RESPS EVEN/NONLABORED. NPO FOR AM LAP/SRAVANTHI.
--- NOTE | 2019-03-14 02:33 | NUR ---
PT CALLING OUT. REPETATIVE VERBALIZATIONS OF "NO, YES," FACIAL GRIMACES. HOLDING ABDOMEN. MEDICATED WITH DILAUDID 1MG SIVP TO PROMOTE COMFORT. PT REMAINS NPO FOR AM SURGERY.
--- NOTE | 2019-03-14 07:15 | NUR ---
RECEIVED PT IN BED EYES CLOSED RESP UNLABORED SKIN W/D COLOR PALE NAD NOTED WILL CONTINUE TO MONITOR
[2019-03-14 08:25] LABS: ALBUMIN 1.7 g/dL (3.4-5.0); BILIRUBIN - TOTAL 2.27 mg/dL (0.2-1.3); CARBON DIOXIDE 21.2 mmol/L (21.0-32.0); CREATININE - SERUM 2.1 mg/dL (0.6-1.3); PROTEIN - SERUM 6.1 g/dL (6.4-8.2)
[2019-03-14 08:31] LABS: ANION GAP 14.8 mmol/L (8-16)
[2019-03-14 08:34] LABS: INR 0.96 (0.85-1.17); PROTIME 12.3 SECONDS (11.6-15.0)
[2019-03-14 08:41] LABS: BASOPHILS 0.1 % (0-2); EOSINOPHILS 0.3 % (0-7); HEMATOCRIT 24.3 % (42.0-54.0); HEMOGLOBIN 8.2 g/dL (13.5-17.5); IMMATURE GRANULOCYTES 0.2 % (0-5); LYMPHOCYTES 4.9 % (15-50); MCH 30.6 pg (26.0-34.0); MCHC 33.7 g/dL (31.0-37.0); MCV 90.7 fL (80.0-100.0); MEAN PLATELET VOLUME 12.3 fL (7.4-10.4); NEUTROPHILS 87.5 % (40-80); PLATELET COUNT 187 10x3/uL (130-400); RBC 2.68 10x6/uL (4.20-6.10); RDW 16.4 % (11.5-14.5); WBC 19.2 10x3/uL (4.8-10.8)
[2019-03-14 08:55] VITALS: BP 130/82
--- NOTE | 2019-03-14 09:21 | NUR ---
WOUND CARE L HEEL UNSTAGEABLE DFU - KEEP HEEL ELEVATED SO IT DOES NOT HAVE CONTACT WITH ANYTHING. L GREAT TOE UNSTAGEABLE DFU - PAINT WITH BETADINE AND LEAVE OPEN TO AIR. COCCYX STAGE 2 PRESSURE ULCER - COVER WITH CALMOSEPTINE 2X DAILY AND COVER WITH MEPILEX SACRUM DRESSING. BETADINE, CALMOSEPTINE, AND AIR OVERLAY MATTRESS ORDERED
--- NOTE | 2019-03-14 12:47 | NUR ---
Nutrition follow-up: Pt currently NPO for Bette hoffman Working with speech Labs reviewed Wt: 273# RDN following.
--- NOTE | 2019-03-14 13:36 | NUR ---
TO OR VIA BED. SISTER STAYING IN ROOM
--- NOTE | 2019-03-14 16:40 | NUR ---
Pt arrived to unit at this time. Opens eyes and nods head yes when asked questions. On 2L O2 via nc. Arik drain noted to RUQ with bloody drainage noted. Lap incisions x 4. Murillo in place with dark urine noted. Will continue to monitor.
--- NOTE | 2019-03-14 17:00 | MORECARE ---
CASE MANAGEMENT DISCHARGE SUMMARY PATIENT: YUKI ESPINOZA UNIT: [id number] ADM DATE: 03/10/19 AGE: 58 : 62 SEX: M ROOM/BED: D.2115 AUTHOR: SUYAPA VEGA PHYSICIAN: REFERRING PHYSICIAN: FIGUEROA OTERO MD DATE OF SERVICE: 03/14/19 Discharge Plan Patient Name: YUKI ESPINOZA Facility: [facility]:[place] : 1960 Planned Disposition: Home with Home Health Anticipated Discharge Date: Discharge Date: Expected LOS: Initial Reviewer: [email or web address] Initial Review Date: 03/12/2019 Generated: 03/14/19 5:59 pm DCPIA - Discharge Planning Initial Assessment Updated by [email or web address]: Maikel Torres on 03/14/19 4:56 pm * How many steps to enter\exit or inside your home? NONE * PCP DR. ALDRICH * Pharmacy [facility] * Preadmission Environment Home with Family * ADLs Partial Dependent * Partial ADLs (Assistance needed) Ambulation Bathing Dressing Medication Management Toileting Transfers * Equipment Bedside [facility] Bed Nazia Lift Rolling Walker Shower Chair Trapeze Wheelchair * Other Equipment NO MEDICAL EQUIOPMENT PROVIDER PREFERENCE * List name and contact numbers for known caregivers / representatives who currently or will assist patient after discharge: DO MARS, SIGNIFICANT OTHER / LEANA, * Verbal permission to speak to the caregivers and representatives has been obtained from the patient. N/A * Community resources currently utilized Home Health Private Duty Care * Please name any agencies selected above. HOME HEALTH NURSING AND AIDE - [facility] PRIVATE DUTY CAREGIVER - [facility]- 30 HOURS PER WEEK * Additional services required to return to the preadmission environment? No * Can the patient safely return to the preadmission environment? Yes * Has this patient been hospitalized within the prior 30 days at any hospital? Yes Coverage Notice Reviewer: [id number] Marcelino Torres Notice Issued Date-Time: 03/14/2019 15:15 Notice Type: IM Discharge Notice Notice Delivered To: Family Member Relationship to Patient: Power of Wash Tank Tender Natural Gas Shothole Driller Name: DO MARS Delivery Method: HAND - Hand Delivered Amberly Days: Prior Verbal Notification: Recipient Understood Notice: Yes Recipient Signature: Yes Med Rec Note Co-signed by Attending: Coverage Notice Comment: Reviewer: [email or web address] - Maikel Torres Notice Issued Date-Time: 03/14/2019 15:15 Notice Type: Patient Choice Letter Notice Delivered To: Family Member Relationship to Patient: Power of Wash Tank Tender Natural Gas Shothole Driller Name: DO MARS Delivery Method: HAND - Hand Delivered Amberly Days: Prior Verbal Notification: Recipient Understood Notice: Yes Recipient Signature: Yes Med Rec Note Co-signed by Attending: Coverage Notice Comment: [facility] Last DP export: 03/12/19 2:32 p Patient Name: YUKI ESPINOZA Page [phone] at 1700 All edits/amendments must be made on the electronic document DICTATION DATE: 03/14/191658 LIQUID FERTILIZER SERVICER: SHAHANA 03/14/191658 RPT#: [id number] DC DATE: STATUS: ADM IN [facility] [address] [place] [address] END OF REPORT
--- NOTE | 2019-03-14 17:11 | MORECARE ---
CASE MANAGEMENT DISCHARGE SUMMARY PATIENT: YUKI ESPINOZA UNIT: [id number] ADM DATE: 03/10/19 AGE: 58 : 62 SEX: M ROOM/BED: D.4314 AUTHOR: SUYAPA VEGA PHYSICIAN: REFERRING PHYSICIAN: FIGUEROA OTERO MD DATE OF SERVICE: 03/14/19 Discharge Plan Patient Name: YUKI ESPINOZA Facility: [facility]:[place] : 1960 Planned Disposition: Home with Home Health Anticipated Discharge Date: Discharge Date: Expected LOS: Initial Reviewer: [email or web address] Initial Review Date: 03/12/2019 Generated: 03/14/19 6:11 pm Comments DCP- Discharge Planning Updated by [id number]: Maikel Torres on 03/14/19 4:[address] Patient Name: YUKI ESPINOZA Admission Status: ER Accout number: [id number] Admission Date: 03-10-2019 : 1960 Admission Diagnosis: Attending: FIGUEROA OTERO Current LOS: 4 Anticipated DC Date: Planned Disposition: Home with Home Health Primary Insurance: [employer] MEDICARE ADV PLANNED EXTERNAL PROVIDER: [facility] Discharge Planning Comments: CM MET WITH PT'S SIGNIFICANT OTHER, DOCRISTOPHER MARS, IN ROOM TO DISCUSS DISCHARGE PLANNING AND NEEDS. DO REPORTS BEING PT'S POWER OF TAX CREDIT LEASING CONSULTANT. PT LIVES WITH HER AND IS TOTALLY DEPENDENT EXCEPT FOR EATING. PT HAS ALL NEEDED MEDICAL EQUIPMENT AT HOME WITH NO PREFERRED MEDICAL EQUIPMENT PROVIDER. PT HAS HOME HEALTH FOR NURSING AND 30 HOURS OF PRIVATE DUTY CARE WEEKLY. PT ALSO HAS HOUSECALLS THEY ARE NOT ABLE TO TRANSPORT PT TO AND FROM DOCTOR APPOINTMENTS. CM DISCUSSED AVAILABILITY OF HOME HEALTH, REHAB SERVICES AND MEDICAL EQUIPMENT. DO REPORTS PT WILL RETURN HOME AT DISCHARGE WITH [facility] RESUMPTION AND THEY WOULD LIKE PHYSICAL THERAPY AT HOME WITH HOME HEALTH AGAIN. PT TO TRANSPORT VIA AMBULANCE. IMPORTANT MESSAGE FROM MEDICARE PROVIDED AND EXPLAINED. CHOICE SIGNED FOR [facility]. FOR DISCHARGE HOME AND RESUMPTION OF HOME HEALTH SERVICES, NOTIFY [facility] AT [phone], FAX DISCHARGE INFORMATION TO [facility] AT [phone]. PT TO TRANSPORT HOME VIA AMBULANCE. Cook Fish Eggs: Maikel Torres DCPIA - Discharge Planning Initial Assessment Updated by [id number]: Maikel Torres on 03/14/19 4:56 pm * How many steps to enter\exit or inside your home? NONE * PCP DR. ALDRICH * Pharmacy [facility] ON [address] * Preadmission Environment Home with Family * ADLs Partial Dependent * Partial ADLs (Assistance needed) Ambulation Bathing Dressing Medication Management Toileting Transfers * Equipment Bedside [facility] Bed Nazia Lift Rolling Walker Shower Chair Trapeze Wheelchair * Other Equipment NO MEDICAL EQUIOPMENT PROVIDER PREFERENCE * List name and contact numbers for known caregivers / representatives who currently or will assist patient after discharge: DO MARS, SIGNIFICANT OTHER / POA, * Verbal permission to speak to the caregivers and representatives has been obtained from the patient. N/A * Community resources currently utilized Home Health Private Duty Care * Please name any agencies selected above. HOME HEALTH NURSING AND AIDE - [facility] PRIVATE DUTY CAREGIVER - [facility]- 30 HOURS PER WEEK * Additional services required to return to the preadmission environment? No * Can the patient safely return to the preadmission environment? Yes * Has this patient been hospitalized within the prior 30 days at any hospital? Yes Coverage Notice Reviewer: [id number] Marcelino Torres Notice Issued Date-Time: 03/14/2019 15:15 Notice Type: IM Discharge Notice Notice Delivered To: Family Member Relationship to Patient: Power of Proof Inspector Manager Photography Name: DO MARS Delivery Method: HAND - Hand Delivered Amberly Days: Prior Verbal Notification: Recipient Understood Notice: Yes Recipient Signature: Yes Med Rec Note Co-signed by Attending: Coverage Notice Comment: Reviewer: [id number] Marcelino Torres Notice Issued Date-Time: 03/14/2019 15:15 Notice Type: Patient Choice Letter Notice Delivered To: Family Member Relationship to Patient: Power of Proof Inspector Manager Photography Name: DO MARS Delivery Method: HAND - Hand Delivered Amberly Days: Prior Verbal Notification: Recipient Understood Notice: Yes Recipient Signature: Yes Med Rec Note Co-signed by Attending: Coverage Notice Comment: [facility] Last DP export: 03/14/19 4:00 p Patient Name: YUKI ESPINOZA Page [phone] at 1711 All edits/amendments must be made on the electronic document DICTATION DATE: 03/14/191710 ROLLER: SHAHANA 03/14/191710 RPT#: [id number] DC DATE: STATUS: ADM IN [facility] [address] [place] [address] END OF REPORT
[2019-03-14 17:14] LABS: ANION GAP 12.4 mmol/L (8-16); CALCIUM 7.2 mg/dL (8.5-10.1); CARBON DIOXIDE 23.4 mmol/L (21.0-32.0); CREATININE - SERUM 2.3 mg/dL (0.6-1.3)
[2019-03-14 17:18] LABS: POTASSIUM - SERUM 3.8 mmol/L (3.5-5.1)
[2019-03-14 18:15] VITALS: BP 101/70
--- NOTE | 2019-03-14 19:30 | NUR ---
RESUMING PATIENT CARE. PATIENT IS ALERT AND ORIENTED. PATIENT CAN ANSWER QUESTIONS WITH YES OR NO. RESPIRATIONS ARE EVEN AND UNLABORED. NO S/S OF DISTRESS. NO C/O PAIN. CALL LIGHT WITHIN REACH. POA AT BEDSIDE. NEEDS MET.
[2019-03-14 20:00] VITALS: BP 109/73
--- NOTE | 2019-03-14 23:33 | NUR ---
PAGED FCO GAMA D/T PATIENT NOT ON HIS DOBUTAMINE DRIP AFTER SURGERY. FOUND DOBUTAMINE ORDER WHEN DOING CHARTS CHECK. NO NOTE OF THE MEDICATION BEING D/Cd. ORDER GIVEN TO HOLD MEDICATION.
[2019-03-15 04:00] VITALS: BP 112/75
[2019-03-15 06:20] LABS: BASOPHILS 0 % (0-2); EOSINOPHILS 0.1 % (0-7); HEMATOCRIT 24.1 % (42.0-54.0); IMMATURE GRANULOCYTES 0.4 % (0-5); LYMPHOCYTES 6.5 % (15-50); MCH 30.7 pg (26.0-34.0); MCHC 33.2 g/dL (31.0-37.0); MCV 92.3 fL (80.0-100.0); MEAN PLATELET VOLUME 11.7 fL (7.4-10.4); MONOCYTES 7.1 % (2-11); NEUTROPHILS 85.9 % (40-80); PLATELET COUNT 186 10x3/uL (130-400); RBC 2.61 10x6/uL (4.20-6.10); RDW 16.6 % (11.5-14.5)
[2019-03-15 06:24] LABS: ALBUMIN 1.9 g/dL (3.4-5.0); ANION GAP 13.8 mmol/L (8-16); BILIRUBIN - TOTAL 2.38 mg/dL (0.2-1.3); CALCIUM 7.4 mg/dL (8.5-10.1); CARBON DIOXIDE 23.1 mmol/L (21.0-32.0); CREATININE - SERUM 2.3 mg/dL (0.6-1.3); MAGNESIUM - SERUM 1.5 mg/dL (1.8-2.4); PHOSPHOROUS 3.3 mg/dL (2.5-4.9); POTASSIUM - SERUM 3.9 mmol/L (3.5-5.1); PROTEIN - SERUM 5.8 g/dL (6.4-8.2)
[2019-03-15 06:29] LABS: INR 1.68 (0.85-1.17); PROTIME 19.2 SECONDS (11.6-15.0)
[2019-03-15 06:34] LABS: WBC 13.6 10x3/uL (4.8-10.8)
[2019-03-15 08:07] VITALS: BP 117/69
[2019-03-15 12:22] VITALS: BP 114/72
[2019-03-15 14:55] VITALS: Ht 193 cm; Wt 126.9 kg
--- NOTE | 2019-03-15 15:00 | NUR ---
MOVED TO ROOM 2123 ON 1ST STEP MATRESS AND PLACED ON ISOLATION. WILL CONT. PLAN OF CARE.
--- NOTE | 2019-03-15 15:40 | NUR ---
URINE SPECIMEN COLLECTED AND TAKEN TO LAB. WILL MONITOR.
[2019-03-15 15:42] LABS: CREATININE - URINE 80.1 mg/dL (30-125); PRO/CRE RATIO URINE 1.7 mg/g; PROTEIN - URINE 136.5 mg/dL (0.0-11.9)
[2019-03-15 16:14] LABS: APPEARANCE HAZY (CLEAR); BILIRUBIN NEGATIVE (NEGATIVE); COLOR DK YELLOW (YELLOW); GLUCOSE NEGATIVE (NEGATIVE); KETONE NEGATIVE (NEGATIVE); NITRITE POSITIVE (NEGATIVE); PROTEIN TRACE mg/dL (NEGATIVE); UROBILINOGEN NORMAL (NORMAL)
[2019-03-15 16:19] LABS: AMORPHOUS SEDIMENT <1+ /lpf (NONE SEEN); BACTERIA MANY /hpf (NONE SEEN); RED CELLS - URINE 0-5 /hpf (0-5); WHITE CELLS - URINE 25-50 /hpf (0-5)
[2019-03-15 16:25] LABS: ERYTHROCYTE SEDIMENTATION RATE 30 mm/hr (0-20)
--- NOTE | 2019-03-15 19:45 | NUR ---
ENTERED ROOM, PT IN BED WITH GOWN AND TELEMETRY OFF. REPLACED TELEMETRY SITCKERS, PT PUSHING AWAY NURSES HANDS AND DIDNT WANT TELEMERTY BACK ON. EMPTIED 70 CCS FROM RIGHT SIDE BIN DRAIN. ATTEMPTED TO REPOSITION IN BED FOR COMFORT, PT PUSHED AGAINST THE NURSES AND DIDNT WANT TO BE MOVED. KEPT STATING " NO NO" INFORMED PT THAT WE WILL GET HIM SOMETHING FOR PAIN. IV TO RIGHT ARM WITH DOUBUTAMINE AT 38.6 AND NS AT 50 CC/HR. DRSGS X4 TO ABD DRY AND INTACT, FROM LAPCHOLE THAT WAS DONE YESTERDAY. STAHL DRAINING TO GRAVITY. COVERED PT WITH CLEAN SHEET AND BLANKET DU TO PT REFUSING TO WEAR A GOWN.
[2019-03-15 20:00] VITALS: BP 127/77
[2019-03-16] VITALS: BP 129/86
--- NOTE | 2019-03-16 01:39 | NUR ---
I have reviewed this patient and I concur with the Shift Assessment completed by the Licensed Practical Nurse today this shift.
--- NOTE | 2019-03-16 01:40 | NUR ---
PT RESTING IN BED WITH EYES CLOSED, RR EVEN AND NONLABORED, NO S/S OF DISTRESS. EASILY AROUSES TO VERBAL STIMULI. DENIES PAIN AND NEEDS AT THIS TIME. BED IN LOWEST POSITION, SR X3, CALL LIGHT WITHIN REACH. WILL CONTINUE TO MONITOR.
[2019-03-16 04:00] VITALS: BP 138/90
--- NOTE | 2019-03-16 05:59 | NUR ---
PT A&A, SITTING UP IN BED. PROTONIX ADMINISTERED, PER ORDER. NEW BAG OF DOBUTAMINE INFUSING @ 38.6 ML/HR. FSBS 112. BIN DRAIN EMPTIED, 90 CC. NO S/S DISTRESS OR DISCOMFORT. BED IN LOWEST POSITION, SR X3, CALL LIGHT WITHIN REACH. WILL CONTINUE TO MONITOR.
[2019-03-16 06:25] LABS: BASOPHILS 0.1 % (0-2); EOSINOPHILS 0.8 % (0-7); HEMOGLOBIN 8.2 g/dL (13.5-17.5); IMMATURE GRANULOCYTES 0.4 % (0-5); LYMPHOCYTES 9.7 % (15-50); MCH 30.9 pg (26.0-34.0); MCHC 34.2 g/dL (31.0-37.0); MCV 90.6 fL (80.0-100.0); MEAN PLATELET VOLUME 11.1 fL (7.4-10.4); MONOCYTES 8.1 % (2-11); NEUTROPHILS 80.9 % (40-80); PLATELET COUNT 167 10x3/uL (130-400); RBC 2.65 10x6/uL (4.20-6.10); RDW 16.5 % (11.5-14.5)
[2019-03-16 06:55] LABS: ALBUMIN 1.9 g/dL (3.4-5.0); ANION GAP 12.4 mmol/L (8-16); BILIRUBIN - TOTAL 2.18 mg/dL (0.2-1.3); CALCIUM 7.7 mg/dL (8.5-10.1); CREATININE - SERUM 2.4 mg/dL (0.6-1.3); MAGNESIUM - SERUM 1.5 mg/dL (1.8-2.4); PHOSPHOROUS 2.9 mg/dL (2.5-4.9); POTASSIUM - SERUM 3.4 mmol/L (3.5-5.1); PROTEIN - SERUM 6.2 g/dL (6.4-8.2)
--- NOTE | 2019-03-16 07:38 | NUR ---
REPORT RECEIVED. WILL CONTINUE WITH POC. PT CURRENTLY LYING SEMI FOWLERS. CALL LIGHT W/I REACH. PT IS AA BUT SLOW TO RESPOND. PT IS BEDFAST. NS INFUSING @50ML/HR AND DOBUTAMINE INFUSING @38.6ML/HR VIA R.WRIST PIV. RR EVEN AND UNLABORED ON RA. STAHL IN PLACE AND DRAINING URINE. BIN DRAIN IN PLACE. STDS ON AND WORKING. PT DENIES ANY NEEDS. NO S/S OF DISTRESS NOTED. WILL CTM.
[2019-03-16 08:44] VITALS: BP 127/76
--- NOTE | 2019-03-16 11:48 | NUR ---
FSBS @1130 WAS 114. PT RECEIVED NO INSULIN. PT CURRENTLY RESTING. CALL LIGHT W/I REACH. RR EVEN AND UNLABORED ON RA. PT DENIES ANY NEEDS. DOBUTAMINE AND D5NS INFUSING. WILL CTM.
[2019-03-16 12:27] VITALS: BP 147/91
--- NOTE | 2019-03-16 13:43 | NUR ---
D5NS DECREASED TO 30ML/HR. WILL CTM.
[2019-03-16 15:09] LABS: SPE - A/G RATIO 0.7 (0.7-1.7); SPE - ALBUMIN 2.3 g/dL (2.9-4.4); SPE - ALPHA-1 GLOBULIN 0.3 g/dL (0.0-0.4); SPE - ALPHA-2 GLOBULIN 0.6 g/dL (0.4-1.0); SPE - BETA GLOBULIN 0.8 g/dL (0.7-1.3); SPE - GAMMA GLOBULIN 1.7 g/dL (0.4-1.8); SPE - M-SPIKE Not Observed g/dL (Not Observed); SPE - TOTAL PROTEIN 5.8 g/dL (6.0-8.5)
--- NOTE | 2019-03-16 17:31 | NUR ---
ADMINISTERED POTASSIUM, MAG, AND COREG CRUSHED IN APPLESAUCE. PT WAS VERY APPREHENSIVE ABOUT TAKING THE MEDICATION AND ONLY TOOK 2 BITES AND REFUSED TO TAKE ANY MORE. WHEN ATTEMPTING TO CHECK IF THE PT HAD A BM, HE SCREAMED OUT IN PAIN BEFORE WE TOUCHED HIM AND WE WERE NOT ABLE TO CHECK HIM. STAHL IN PLACE AND DRAINED 550 OF DARK STEPHANIE URINE WITH SEDEMENT. PT CONFUSED TO SITUATION AND NONCOMPLIANT TO MEDICATIONS AND NURSING CARE. PT STATES "WHY DO WE HAVE TO DO ALL OF THIS, I JUST DONT WANT IT ANYMORE." WILL CTM.
[2019-03-16 20:00] VITALS: BP 139/81
[2019-03-17] VITALS: BP 130/88
--- NOTE | 2019-03-17 00:45 | NUR ---
I have reviewed this patient and I concur with the Shift Assessment completed by the Licensed Practical Nurse today this shift.
--- NOTE | 2019-03-17 01:14 | NUR ---
RESTING WITH EYES CLOSED, RESPERATIONS EVEN, NO S/S DISTRESS NOTED.
[2019-03-17 04:00] VITALS: BP 130/79
--- NOTE | 2019-03-17 07:50 | NUR ---
PT ALERT AND ORIENTED X4. PT HAS TROUBLE EXPRESSING WORDS. PT REFUSED AM LABS. ASSEMBLER MUSICAL INSTRUMENTS IS GOING TO COME BACK AND TRY. PT JERKING ARM AND YELLING NO, NO, NO. RR EVEN AND UNLABORED. 1ST STEP OVERLAY IN PLACE WITH BED ALARM. BED LOW CALL LIGHT WITHIN REACH. WILL CONTINUE TO MONITOR.
[2019-03-17 11:35] LABS: ANION GAP 11.1 mmol/L (8-16); BILIRUBIN - TOTAL 2.16 mg/dL (0.2-1.3); CALCIUM 7.2 mg/dL (8.5-10.1); CARBON DIOXIDE 22.9 mmol/L (21.0-32.0); CREATININE - SERUM 2.3 mg/dL (0.6-1.3); MAGNESIUM - SERUM 1.5 mg/dL (1.8-2.4); PHOSPHOROUS 2.6 mg/dL (2.5-4.9); PROTEIN - SERUM 5.8 g/dL (6.4-8.2)
[2019-03-17 11:40] VITALS: BP 111/72
[2019-03-17 11:45] LABS: BASOPHILS 0 % (0-2); EOSINOPHILS 2.5 % (0-7); HEMATOCRIT 21.5 % (42.0-54.0); IMMATURE GRANULOCYTES 0.7 % (0-5); LYMPHOCYTES 13.1 % (15-50); MCH 30.5 pg (26.0-34.0); MEAN PLATELET VOLUME 11.6 fL (7.4-10.4); MONOCYTES 8.7 % (2-11); PLATELET COUNT 144 10x3/uL (130-400); RBC 2.39 10x6/uL (4.20-6.10); RDW 16.3 % (11.5-14.5); WBC 9.7 10x3/uL (4.8-10.8)
[2019-03-17 11:48] LABS: HEMOGLOBIN 7.3 g/dL (13.5-17.5)
--- NOTE | 2019-03-17 11:49 | MORECARE ---
CASE MANAGEMENT DISCHARGE SUMMARY PATIENT: YUKI ESPINOZA UNIT: [id number] ADM DATE: 03/10/19 AGE: 58 : 62 SEX: M ROOM/BED: D.7754 AUTHOR: SUYAPA VEGA PHYSICIAN: REFERRING PHYSICIAN: FIGUEROA OTERO MD DATE OF SERVICE: 03/17/19 Discharge Plan Patient Name: YUKI ESPINOZA Facility: [facility]:[place] : 1960 Planned Disposition: Home with Home Health Anticipated Discharge Date: Discharge Date: Expected LOS: Initial Reviewer: [email or web address] Initial Review Date: 03/12/2019 Generated: 03/17/19 12:49 pm DCP- Discharge Planning Updated by [email or web address]: Maikel Torres on 03/14/19 4:[address] Patient Name: YUKI ESPINOZA Admission Status: ER Accout number: [id number] Admission Date: 03-10-2019 : 1960 Admission Diagnosis: Attending: FIGUEROA OTERO Current LOS: 4 Anticipated DC Date: Planned Disposition: Home with Home Health Primary Insurance: [employer] MEDICARE ADV PLANNED EXTERNAL PROVIDER: [facility] Discharge Planning Comments: CM MET WITH PT'S SIGNIFICANT OTHER, DO DAVALOSISON, IN ROOM TO DISCUSS DISCHARGE PLANNING AND NEEDS. DO REPORTS BEING PT'S POWER OF GREENHOUSE SUPERINTENDENT. PT LIVES WITH HER AND IS TOTALLY DEPENDENT EXCEPT FOR EATING. PT HAS ALL NEEDED MEDICAL EQUIPMENT AT HOME WITH NO PREFERRED MEDICAL EQUIPMENT PROVIDER. PT HAS HOME HEALTH FOR NURSING AND 30 HOURS OF PRIVATE DUTY CARE WEEKLY. PT ALSO HAS HOUSECALLS THEY ARE NOT ABLE TO TRANSPORT PT TO AND FROM DOCTOR APPOINTMENTS. CM DISCUSSED AVAILABILITY OF HOME HEALTH, REHAB SERVICES AND MEDICAL EQUIPMENT. DO REPORTS PT WILL RETURN HOME AT DISCHARGE WITH [facility] RESUMPTION AND THEY WOULD LIKE PHYSICAL THERAPY AT HOME WITH HOME HEALTH AGAIN. PT TO TRANSPORT VIA AMBULANCE. IMPORTANT MESSAGE FROM MEDICARE PROVIDED AND EXPLAINED. CHOICE SIGNED FOR [facility]. FOR DISCHARGE HOME AND RESUMPTION OF HOME HEALTH SERVICES, NOTIFY [facility] AT [phone], FAX DISCHARGE INFORMATION TO [facility] AT [phone]. PT TO TRANSPORT HOME VIA AMBULANCE. Restaurant Managing Partner: Maikel Torres DCPIA - Discharge Planning Initial Assessment Updated by [id number]: Maikel Torres on 03/14/19 4:56 pm * How many steps to enter\exit or inside your home? NONE * PCP DR. ALDRICH * Pharmacy [facility] [address] * Preadmission Environment Home with Family * ADLs Partial Dependent * Partial ADLs (Assistance needed) Ambulation Bathing Dressing Medication Management Toileting Transfers * Equipment Bedside [facility] Bed Nazia Lift Rolling Walker Shower Chair Trapeze Wheelchair * Other Equipment NO MEDICAL EQUIOPMENT PROVIDER PREFERENCE * List name and contact numbers for known caregivers / representatives who currently or will assist patient after discharge: DO JERAD, SIGNIFICANT OTHER / POA, * Verbal permission to speak to the caregivers and representatives has been obtained from the patient. N/A * Community resources currently utilized Home Health Private Duty Care * Please name any agencies selected above. HOME HEALTH NURSING AND AIDE - [facility] PRIVATE DUTY CAREGIVER - [facility]- 30 HOURS PER WEEK * Additional services required to return to the preadmission environment? No * Can the patient safely return to the preadmission environment? Yes * Has this patient been hospitalized within the prior 30 days at any hospital? Yes External Providers External Provider: [facility] Next Contact Date: 03/17/2019 Service Request Date: Service Type: Resolution: Reviewer: Comments: Coverage Notice Reviewer: [email or web address] Marcelino Torres Notice Issued Date-Time: 03/14/2019 15:15 Notice Type: IM Discharge Notice Notice Delivered To: Family Member Relationship to Patient: Power of Assembly Worker Talent Consultant Name: DO MARS Delivery Method: HAND - Hand Delivered Amberly Days: Prior Verbal Notification: Recipient Understood Notice: Yes Recipient Signature: Yes Med Rec Note Co-signed by Attending: Coverage Notice Comment: Reviewer: [email or web address] Marcelino Torres Notice Issued Date-Time: 03/14/2019 15:15 Notice Type: Patient Choice Letter Notice Delivered To: Family Member Relationship to Patient: Power of Assembly Worker Talent Consultant Name: DO MARS Delivery Method: HAND - Hand Delivered Amberly Days: Prior Verbal Notification: Recipient Understood Notice: Yes Recipient Signature: Yes Med Rec Note Co-signed by Attending: Coverage Notice Comment: [facility] Last DP export: 03/14/19 4:11 p Patient Name: YUKI ESPINOZA Page 97194 at 1149 All edits/amendments must be made on the electronic document DICTATION DATE: 03/17/19 114 COLLAR STAY FUSER TENDER: SHAHANA 03/17/19 114 RPT#: [id number] DC DATE: STATUS: ADM IN [facility] [address] [place] [address] END OF REPORT
--- NOTE | 2019-03-17 12:19 | MORECARE ---
CASE MANAGEMENT DISCHARGE SUMMARY PATIENT: YUKI ESPINOZA UNIT: [id number] ADM DATE: 03/10/19 AGE: 58 : 62 SEX: M ROOM/BED: D.2124 AUTHOR: SUYAPA VEGA PHYSICIAN: REFERRING PHYSICIAN: FIGUEROA OTERO MD DATE OF SERVICE: 03/17/19 Discharge Plan Patient Name: YUKI ESPINOZA Facility: [facility]:[place] : 1960 Planned Disposition: Home with Home Health Anticipated Discharge Date: Discharge Date: Expected LOS: Initial Reviewer: [email or web address] Initial Review Date: 03/12/2019 Generated: 03/17/19 1:19 pm Comments DCP- Discharge Planning Updated by [email or web address]: Maikel Torres on 03/17/19 11:[address] Patient Name: YUKI ESPINOZA Encounter No: [id number] : 1960 Primary Insurance: WELLCARE MEDICARE ADV Anticipated DC Date: Planned Disposition: Home with Home Health External Planned Provider: [facility] DCP follow-up note: MAIRA PARTICIPATED IN MULTIDICIPLINARY TEAM MEETING, INFORMED THAT HOME HEALTH MUST BE INFORMED OF PT'S POSITIVE URINE CULTURE FOR MDR. MAIRA CALLED AND SPOKE TO PRAVEEN AT [facility], , NOTIFIED OF MDR IN URINE; PRAVEEN REPORTS PT HAS FREQUENT UTI'S AND HOME IS NOT SANITARY ENVIRONMENT. THEY WILL ACCEPT BACK FOR HOME HEALTH BUT WILL NOT DO ANY IV ANTIBIOTICS IN THE HOME DUE TO HOME CONDITION. MAIRA FAXED HOSPITAL UPDATE TO [facility] AT [phone]. FOR RESUMPTION OF HOME HEALTH, CALL [facility], ; FAX DISCHARGE INFORMATION TO [facility] AT [phone]. [facility] WILL NOT DO ANY IV MEDICATIONS IN THE HOME. KELLY Gutierres DCP- Discharge Planning Updated by [id number]: Maikel Torres on 03/14/19 4:[address] Patient Name: YUKI ESPINOZA Admission Status: ER Accout number: [id number] Admission Date: 03-10-2019 : 1960 Admission Diagnosis: Attending: FIGUEROA OTERO Current LOS: 4 Anticipated DC Date: Planned Disposition: Home with Home Health Primary Insurance: [employer] MEDICARE ADV PLANNED EXTERNAL PROVIDER: [facility] Discharge Planning Comments: CM MET WITH PT'S SIGNIFICANT OTHER, DO MARS, IN ROOM TO DISCUSS DISCHARGE PLANNING AND NEEDS. DO REPORTS BEING PT'S POWER OF PLANE TENDER. PT LIVES WITH HER AND IS TOTALLY DEPENDENT EXCEPT FOR EATING. PT HAS ALL NEEDED MEDICAL EQUIPMENT AT HOME WITH NO PREFERRED MEDICAL EQUIPMENT PROVIDER. PT HAS HOME HEALTH FOR NURSING AND 30 HOURS OF PRIVATE DUTY CARE WEEKLY. PT ALSO HAS HOUSECALLS THEY ARE NOT ABLE TO TRANSPORT PT TO AND FROM DOCTOR APPOINTMENTS. CM DISCUSSED AVAILABILITY OF HOME HEALTH, REHAB SERVICES AND MEDICAL EQUIPMENT. DO REPORTS PT WILL RETURN HOME AT DISCHARGE WITH [facility] RESUMPTION AND THEY WOULD LIKE PHYSICAL THERAPY AT HOME WITH HOME HEALTH AGAIN. PT TO TRANSPORT VIA AMBULANCE. IMPORTANT MESSAGE FROM MEDICARE PROVIDED AND EXPLAINED. CHOICE SIGNED FOR [facility]. FOR DISCHARGE HOME AND RESUMPTION OF HOME HEALTH SERVICES, NOTIFY [facility] AT [phone], FAX DISCHARGE INFORMATION TO [facility] AT [phone]. PT TO TRANSPORT HOME VIA AMBULANCE. Chocolate Coater: Maikel Torres DCPIA - Discharge Planning Initial Assessment Updated by [id number]: Maikel Torres on 03/14/19 4:56 pm * How many steps to enter\exit or inside your home? NONE * PCP DR. ALDRICH * Pharmacy [facility] * Preadmission Environment Home with Family * ADLs Partial Dependent * Partial ADLs (Assistance needed) Ambulation Bathing Dressing Medication Management Toileting Transfers * Equipment Bedside [facility] Hospital Bed Nazia Lift Rolling Walker Shower Chair Trapeze Wheelchair * Other Equipment NO MEDICAL EQUIOPMENT PROVIDER PREFERENCE * List name and contact numbers for known caregivers / representatives who currently or will assist patient after discharge: DO MARS, SIGNIFICANT OTHER / POA, * Verbal permission to speak to the caregivers and representatives has been obtained from the patient. N/A * Community resources currently utilized Home Health Private Duty Care * Please name any agencies selected above. HOME HEALTH NURSING AND AIDE - [facility] HOME HEALTH PRIVATE DUTY CAREGIVER - [facility]- 30 HOURS PER WEEK * Additional services required to return to the preadmission environment? No * Can the patient safely return to the preadmission environment? Yes * Has this patient been hospitalized within the prior 30 days at any hospital? Yes Coverage Notice Reviewer: [email or web address] Torres Notice Issued Date-Time: 03/14/2019 15:15 Notice Type: IM Discharge Notice Notice Delivered To: Family Member Relationship to Patient: Power of Logistics Tech Check Writer Salesperson Name: DO MASR Delivery Method: HAND - Hand Delivered Amberly Days: Prior Verbal Notification: Recipient Understood Notice: Yes Recipient Signature: Yes Med Rec Note Co-signed by Attending: Coverage Notice Comment: Reviewer: [id number] Torres Notice Issued Date-Time: 03/14/2019 15:15 Notice Type: Patient Choice Letter Notice Delivered To: Family Member Relationship to Patient: Power of Logistics Tech Check Writer Salesperson Name: DO MARS Delivery Method: HAND - Hand Delivered Amberly Days: Prior Verbal Notification: Recipient Understood Notice: Yes Recipient Signature: Yes Med Rec Note Co-signed by Attending: Coverage Notice Comment: [facility] Last DP export: 03/17/19 10:49 a Patient Name: YUKI ESPINOZA Page [phone] at 1219 All edits/amendments must be made on the electronic document DICTATION DATE: 03/17/19 1219 GERONTOLOGY AIDE: SHAHANA 03/17/19 1219 RPT#: [id number] DC DATE: STATUS: ADM IN [facility] [address] [place] [address] END OF REPORT
--- NOTE | 2019-03-17 14:01 | NUR ---
CHANGED PT'S DOUBUTAMINE DRIP TO 2.5 PER ORDER. PT RESTING RR EVENA AND UNLABORED. BED LOW CALL LIGHT WITHIN REACH. WILL CONTINUE TO MONITOR.
--- NOTE | 2019-03-17 14:10 | NUR ---
Nutrition Follow-Up: Advanced to full liquid diet. POD#3 lap yasmin; no BM since surgery. Diet: Full Liquid AAT to Regular Wt: 301# Labs/meds reviewed. Working with ACTIVATED SLUDGE ATTENDANT. Will continue to monitor for PO tolerance and diet advancement.
[2019-03-17 15:24] VITALS: BP 120/73
--- NOTE | 2019-03-17 15:40 | NUR ---
I have reviewed this patient and I concur with the Shift Assessment completed by the Licensed Practical Nurse today this shift.
[2019-03-17 16:08] LABS: UPE RAND - ALBUMIN 19.5 % (()); UPE RAND - ALPHA 1 GLOBULIN 1.8 % (()); UPE RAND - BETA GLOBULIN 27.4 % (()); UPE RAND - GAMMA GLOBULIN 40.3 % (())
--- NOTE | 2019-03-17 16:22 | NUR ---
STARTED 1ST UNIT OF PT'S BLOOD IN RIGHT WRIST 22G AT 125ML/HR. PT ALERT AND VITALS STABLE.
--- NOTE | 2019-03-17 19:15 | NUR ---
AWAKE ANSEWRS YES AND NO TO QUESTIONS SKIN WARM AND DRY BLOOD INFUSING AT THIS TIME WITH NO NOTED REACTION THIS IS SECOND UNIT. BED LOW AND LOCKED AND CALL LIFGHT IN REACH STERI STRIPS INTACT TO ABD FROM LAP SRAVANTHI. EFFORT MADE TO IMPROVE PT COMFORT
[2019-03-17 20:00] VITALS: BP 122/78
--- NOTE | 2019-03-17 22:20 | NUR ---
BLOOD IS FINISHED FLUSHING REST OF LINE AND THEN I WILL RESTART DOBUTAMINE AND D5
--- NOTE | 2019-03-17 23:04 | NUR ---
DOBUTAMINE AT 10.2 TO DELIVER 2.5 MCG
[2019-03-18] VITALS: BP 129/82
[2019-03-18 04:00] VITALS: BP 118/82
[2019-03-18 04:57] LABS: BASOPHILS 0.1 % (0-2); EOSINOPHILS 2.7 % (0-7); IMMATURE GRANULOCYTES 0.8 % (0-5); LYMPHOCYTES 12.5 % (15-50); MCH 30.3 pg (26.0-34.0); MCHC 34.3 g/dL (31.0-37.0); MCV 88.4 fL (80.0-100.0); MEAN PLATELET VOLUME 11.5 fL (7.4-10.4); MONOCYTES 10.2 % (2-11); NEUTROPHILS 73.7 % (40-80); PLATELET COUNT 151 10x3/uL (130-400); RDW 17.6 % (11.5-14.5)
[2019-03-18 05:12] LABS: HEMATOCRIT 28.3 % (42.0-54.0); HEMOGLOBIN 9.7 g/dL (13.5-17.5); WBC 12.8 10x3/uL (4.8-10.8)
[2019-03-18 05:50] LABS: ANION GAP 12.6 mmol/L (8-16); BILIRUBIN - TOTAL 2.3 mg/dL (0.2-1.3); CALCIUM 7.4 mg/dL (8.5-10.1); CARBON DIOXIDE 20.9 mmol/L (21.0-32.0); CREATININE - SERUM 2.2 mg/dL (0.6-1.3); MAGNESIUM - SERUM 1.7 mg/dL (1.8-2.4); PHOSPHOROUS 2.8 mg/dL (2.5-4.9)
[2019-03-18 05:51] LABS: POTASSIUM - SERUM 3.5 mmol/L (3.5-5.1)
--- NOTE | 2019-03-18 06:10 | NUR ---
I have reviewed this patient and I concur with the Shift Assessment completed by the Licensed Practical Nurse today this shift.
--- NOTE | 2019-03-18 06:31 | NUR ---
turning a repositioning patient found skin is sloughing from heals and pt is weeping there as well skin is also starting to peel from buttocks. noted large amount of fluid pink tinged has leaked from bandage of dced luz drain site
--- NOTE | 2019-03-18 07:17 | NUR ---
REPORT RECIEVED. PT LYING SEMI FOWLERS. RR EVEN AND UNLABORED. NO DISTRESS NOTED. BED IN LOWEST POSITION CALL LIGHT WITHIN REACH. SIDE RAILS UP X2. R WRIST IV INFUSING D5 @30 AND DOBUTIMINE @10.2. STAHL DRAINING URINE. ON MATHEMATICAL SCIENCES PROFESSOR. WILL CTM
[2019-03-18 08:37] VITALS: BP 118/76
--- NOTE | 2019-03-18 12:15 | OP ---
PATIENT NAME: YUKI ESPINOZA MEDICAL RECORD: [id number] :[birth year] LOCATION:D. D.2124 ADMISSION DATE:03/10/19 SURGEON: ARNOLD EDWARDS MD DATE OF OPERATION: 03/14/2019 PREOPERATIVE DIAGNOSES: 1. Acute cholecystitis. 2. Diabetes mellitus. 3. Morbid obesity. 4. Elevated LFTs. 5. Chronic anticoagulation with Coumadin. POSTOPERATIVE DIAGNOSES: 1. Acute cholecystitis. 2. Diabetes mellitus. 3. Morbid obesity. 4. Elevated LFTs. 5. Chronic anticoagulation with Coumadin. PROCEDURE: Laparoscopic cholecystectomy with intraoperative cholangiogram. SURGEON: Arnold Edwards MD REPORT OF PROCEDURE: The patient's abdomen was prepped and draped in sterile fashion. A cutdown was made in the midline just above the umbilicus, 0 Vicryls were placed in the fascia bilaterally and the fascia was incised with a 15-blade. I then bluntly entered the peritoneal cavity and placed a 12-mm Conrado port. The patient had some adhesions in the right upper quadrant. A 5-mm trocar was placed in the epigastrium and these adhesions were taken down with sharp dissection. Another 5-mm trocar was placed in the mid right subcostal region and a final one was placed in the lateral right subcostal region. The patient had a lot of inflammatory changes in the right upper quadrant along with some what appeared to be a serous or bilious type fluid. We suctioned this fluid out and there was no sign of any purulence. We then began our dissection over top of the fatty tissue that was adherent to the dome of the gallbladder. This was eventually taken off and we were able to see the gallbladder dome and it was gangrenous. I did not see any evidence of an acute perforation. As we dissected this tissue out, we eventually aspirated the gallbladder to remove some of its contents to make it more easily graspable. We were able to dissect out the cystic artery and cystic duct. The patient had 2 arterial structures and these were clipped proximally and distally and ligated. The cystic duct was dissected free and we were able to clip it twice proximally. An opening was made and a Cook cholangiocath was brought through the abdominal wall and placed in the distal aspect of the cystic duct. Then, an intraoperative cholangiogram was performed and it showed there was good filling of the common bile ducts extending down into the duodenum and up into the hepatic duct. There was no sign of any leak present. There was no sign of any masses or strictures. The cholangiocath was removed and the cystic duct was clipped 3 times distally and ligated. We then peeled the gallbladder off of the liver bed and placed into an Endo Catch bag. The liver bed was treated with electrocautery and then irrigated out with normal saline. A 15-Thai Ed drain was inserted through the right lateral subcostal incision and placed in the gallbladder fossa. This was sutured into place with a 3-0 Prolene. The ports and insufflation were then removed and the gallbladder was taken out through the midline incision. The midline fascia was closed with interrupted 0 OPERATIVE REPORT [id number] YUKI ESPINOZA Vicryls times 4. The wounds were irrigated out with normal saline, infused with 10 mL of 0.25% Marcaine with epinephrine. The skin incisions were all closed with subcutaneous 5-0 Monocryl and dressed appropriately. COMPLICATIONS: None. CONDITION: Fair. ANESTHESIA: General endotracheal and local. BLOOD LOSS: 50 mL. TRANSINT:[id number] Voice Confirmation ID: [id number] DOCUMENT ID: [id number] ARNOLD EDWARDS MD at 1215 CC: [id number] DICTATION DATE: 03/14/19 153 TRUCK DRIVER INSTRUCTOR: 03/14/19 1547 ADM IN [facility] [address] [place] [address]
[2019-03-18 12:30] VITALS: BP 103/63
[2019-03-18 13:50] LABS: APPEARANCE TURBID (CLEAR); BILIRUBIN NEGATIVE (NEGATIVE); COLOR YELLOW (YELLOW); GLUCOSE NEGATIVE (NEGATIVE); KETONE NEGATIVE (NEGATIVE); NITRITE NEGATIVE (NEGATIVE); PROTEIN 1+ mg/dL (NEGATIVE)
[2019-03-18 13:51] LABS: AMORPHOUS SEDIMENT <1+ /lpf (NONE SEEN); BACTERIA MODERATE /hpf (NONE SEEN); EPITHELIAL CELLS 0-5 /hpf (0-5); GRANULAR CAST RARE /lpf (NONE SEEN); MUCUS <1+ /lpf (NONE SEEN); WHITE CELLS - URINE >50 /hpf (0-5)
--- NOTE | 2019-03-18 13:56 | MORECARE ---
CASE MANAGEMENT DISCHARGE SUMMARY PATIENT: YUKI ESPINOZA UNIT: [id number] ADM DATE: 03/10/19 AGE: 58 : 62 SEX: M ROOM/BED: D.1419 AUTHOR: SILVIA,DOC PHYSICIAN: REFERRING PHYSICIAN: FIGUEROA OTERO MD DATE OF SERVICE: 03/18/19 Discharge Plan Patient Name: YUKI ESPINOZA Facility: [facility]:[place] : 1960 Planned Disposition: Home with Home Health Anticipated Discharge Date: Discharge Date: Expected LOS: Initial Reviewer: [id number] Initial Review Date: 03/12/2019 Generated: 03/18/19 2:56 pm Comments DCP- Discharge Planning Updated by [id number]: Evelyne Wilson on 03/18/19 12:[address] REMAINS EDEMATOUS ON DOBUTAMINE INFUSION. ELEVATE EXTREMITIES. SPECIALTY BED. RISK OF BREAKDOWN W/ LOW PROTEIN, SWELLING AND POOR MOBILITY. REPLACE Mg+. REPEAT UA. RPT CXR PT/OT. ESR 30 PROBNP 66644 ALK PHOS 313 TB 2.3 AST 58 ALT 86 CXR- UNCHANGED- NO SIGNIFICANT CHANGE DOBUTAMINE DRIP CONTINUES. DAILY IV ALBUMIN. DCP- Discharge Planning Updated by [email or web address]: Maikel Torres on 03/17/19 11:[address] Patient Name: YUKI ESPINOZA Encounter No: [id number] : 1960 Primary Insurance: [employer] MEDICARE ADV Anticipated DC Date: Planned Disposition: Home with Home Health External Planned Provider: [facility] DCP follow-up note: MAIRA PARTICIPATED IN MULTIDICIPLINARY TEAM MEETING, INFORMED THAT HOME HEALTH MUST BE INFORMED OF PT'S POSITIVE URINE CULTURE FOR MDR. MAIRA CALLED AND SPOKE TO PRAVEEN AT [facility], , NOTIFIED OF MDR IN URINE; PRAVEEN REPORTS PT HAS FREQUENT UTI'S AND HOME IS NOT SANITARY ENVIRONMENT. THEY WILL ACCEPT BACK FOR HOME HEALTH BUT WILL NOT DO ANY IV ANTIBIOTICS IN THE HOME DUE TO HOME CONDITION. MAIRA FAXED HOSPITAL UPDATE TO [facility] AT [phone]. FOR RESUMPTION OF HOME HEALTH, CALL [facility], ; FAX DISCHARGE INFORMATION TO [facility] AT [phone]. [facility] WILL NOT DO ANY IV MEDICATIONS IN THE HOME. Maikel Torres, CASE MANAGEMENT DCP- Discharge Planning Updated by [email or web address]: Maikel Torres on 03/14/19 4:[address] Patient Name: YUKI ESPINOZA Admission Status: ER Accout number: [id number] Admission Date: 03-10-2019 : 1960 Admission Diagnosis: Attending: FIGUEROA OTERO Current LOS: 4 Anticipated DC Date: Planned Disposition: Home with Home Health Primary Insurance: WE[employer] MEDICARE ADV PLANNED EXTERNAL PROVIDER: [facility] Discharge Planning Comments: CM MET WITH PT'S SIGNIFICANT OTHER, DOTravis MARS, IN ROOM TO DISCUSS DISCHARGE PLANNING AND NEEDS. DO REPORTS BEING PT'S POWER OF MERCHANDISE EXECUTION LEADER. PT LIVES WITH HER AND IS TOTALLY DEPENDENT EXCEPT FOR EATING. PT HAS ALL NEEDED MEDICAL EQUIPMENT AT HOME WITH NO PREFERRED MEDICAL EQUIPMENT PROVIDER. PT HAS HOME HEALTH FOR NURSING AND 30 HOURS OF PRIVATE DUTY CARE WEEKLY. PT ALSO HAS HOUSECALLS THEY ARE NOT ABLE TO TRANSPORT PT TO AND FROM DOCTOR APPOINTMENTS. CM DISCUSSED AVAILABILITY OF HOME HEALTH, REHAB SERVICES AND MEDICAL EQUIPMENT. DO REPORTS PT WILL RETURN HOME AT DISCHARGE WITH [facility] RESUMPTION AND THEY WOULD LIKE PHYSICAL THERAPY AT HOME WITH HOME HEALTH AGAIN. PT TO TRANSPORT VIA AMBULANCE. IMPORTANT MESSAGE FROM MEDICARE PROVIDED AND EXPLAINED. CHOICE SIGNED FOR [facility]. FOR DISCHARGE HOME AND RESUMPTION OF HOME HEALTH SERVICES, NOTIFY [facility] AT [phone], FAX DISCHARGE INFORMATION TO [facility] AT [phone]. PT TO TRANSPORT HOME VIA AMBULANCE. Scrap Baller: Maikel Torres DCPIA - Discharge Planning Initial Assessment Updated by [email or web address]: Maikel Torres on 03/14/19 4:56 pm * How many steps to enter\exit or inside your home? NONE * PCP DR. ALDRICH * Pharmacy [facility] [address] * Preadmission Environment Home with Family * ADLs Partial Dependent * Partial ADLs (Assistance needed) Ambulation Bathing Dressing Medication Management Toileting Transfers * Equipment Bedside [facility] Bed Nazia Lift Rolling Walker Shower Chair Trapeze Wheelchair * Other Equipment NO MEDICAL EQUIOPMENT PROVIDER PREFERENCE * List name and contact numbers for known caregivers / representatives who currently or will assist patient after discharge: DO MARS, SIGNIFICANT OTHER / POA, * Verbal permission to speak to the caregivers and representatives has been obtained from the patient. N/A * Community resources currently utilized Home Health Private Duty Care * Please name any agencies selected above. HOME HEALTH NURSING AND AIDE - [facility] HOME HEALTH PRIVATE DUTY CAREGIVER - [facility]- 30 HOURS PER WEEK * Additional services required to return to the preadmission environment? No * Can the patient safely return to the preadmission environment? Yes * Has this patient been hospitalized within the prior 30 days at any hospital? Yes Coverage Notice Reviewer: [email or web address] Torres Notice Issued Date-Time: 03/14/2019 15:15 Notice Type: IM Discharge Notice Notice Delivered To: Family Member Relationship to Patient: Power of Tile Setter Apprentice Manager Sql Name: DO MARS Delivery Method: HAND - Hand Delivered Amberly Days: Prior Verbal Notification: Recipient Understood Notice: Yes Recipient Signature: Yes Med Rec Note Co-signed by Attending: Coverage Notice Comment: Reviewer: PORFIRIO Torres Notice Issued Date-Time: 03/14/2019 15:15 Notice Type: Patient Choice Letter Notice Delivered To: Family Member Relationship to Patient: Power of Tile Setter Apprentice Manager Sql Name: DO MARS Delivery Method: HAND - Hand Delivered Amberly Days: Prior Verbal Notification: Recipient Understood Notice: Yes Recipient Signature: Yes Med Rec Note Co-signed by Attending: Coverage Notice Comment: [facility] Last DP export: 03/17/19 11:19 a Patient Name: YUKI ESPINOZA Page 27445 at 1356 All edits/amendments must be made on the electronic document DICTATION DATE: 03/18/19 1356 RETAIL PRODUCT ADVISOR: SHAHANA 03/18/19 1356 RPT#: [id number] DC DATE: STATUS: ADM IN [facility] [address] [place] [address] END OF REPORT
--- NOTE | 2019-03-18 15:44 | NUR ---
I have reviewed this patient and I concur with the Shift Assessment completed by the Licensed Practical Nurse today this shift.
[2019-03-18 16:38] VITALS: BP 123/64
--- NOTE | 2019-03-18 17:28 | NUR ---
WHILE PERFORMING PT CARE ROLLED PT TO RIGHT SIDE PT THEN HAD LARGE RUNNY LIGHT BROWN BOWEL MOVEMENT. CLEANED PT AND APPLIED NEW LIENS. PT HAS LARGE STAGE 2 SACRAL WOUND CLEANED WOUND WITH WOUND CLEANSER AND APPLIED LARGE SACRAL MEPLEX. PT DENIES ANY FURTHER NEEDS AT THIS TIME. APPROX 30 MINS LATER ENTERED THE ROOM AND FOUND COPIOUS AMTS OF SEROUS PURULENT DRAINAGE SEEPING FROM RUQ ABD INCISION. REINFORCED WITH GAUZ AND TAPE DURING THIS TIME PT HAD LARGE RUNNY BROWN BOWEL MOVEMENT. CLEANED PT AND CHANGED LIENS. STAHL CARE PERFORMED. CALL LIGHT WITHIN REACH. WILL CTM
[2019-03-18 20:00] VITALS: BP 103/70
--- NOTE | 2019-03-18 22:23 | NUR ---
INITIAL ROUNDS COMPLETED AT 1915 HRS. PT RESTING WITH EYES CLOSED. RESP EVEN AND REGULAR. ASSESSMENT COMPLETED AT 2009 HRS. VSS. CAF PER CM WITH BB HR 83. PT ALERT. HAS WORD SALAD. FOLLOWS COMMANDS. WALLACE. EXTREMITIES WEAK. LUNGS DIMINISHED IN BASES BILAT. HEART TONES IRR. PALPABLE PERIPHERAL PULES. SLOUGHING APPROX 3CM IN DIAMETER TO L HEEL WITH SMALL AMOUNT S OF WEROSANGINOUS DRAINAGE. 4X4 APPLIED. R HEEL SPONGY. BILAT HEELS IN HEEL PROTECTORES. 1CM STASIS ULCER NOTER TO L BIG TOE. BRUISES TO BILAR AR,S. IV TO R WRIST WITH D5LR AT 30CC/HR AND DOBUTREX AT 2.5MCQ/KG/MIN (10.3CC/HR). IV PATENT. LARGE MEPILEX NOTED TO SACRAL AREA. INCISONS X4 WITH STERISTRIPS TO ABD. DRESSING OVER DC'D BIN DRAIN SATUATED WITH SEROUS FLUID. L SIDE OF BED SATURATED. STAHL DRAINING YELLOW URINE. PT CLEANED AND NEW BEDDING PLACED. PT VERY UNCOOPERATIVE DURING ACTIVITY. ATTEMPTING TO HIT STAFF AND YELLING " NO NO NO" LOUDLY. EXPLAINED TO PT CANNOT LEAVE HIM WET. NEEDS FURTHER INSTRUCTION. REP[OSITIONED ONTO R SIDE. 1ST STEP AOR OVERLAY. PM FSBS 134. NO COVERAGE NEEDED. PM MEDS GIVEN. PT SWALLOWED WITHOUT DIFFICULTY. PT CURRENTLY RESTING WITH EYES CLOSED. RESP EVEN AND REGULAR. SR UP X2, CALL LIGHT WITHIN REACH AND BED ALARM ON.
[2019-03-19] VITALS: BP 128/79
--- NOTE | 2019-03-19 00:57 | NUR ---
REPOSITIONED IN BED. PT RESTING WITH EYES CLOSED. RESP EVEN AND REGULAR. SR UP X2, CALL LIGHT WITHIN REACH AND BED ALARM ON.
--- NOTE | 2019-03-19 02:08 | NUR ---
PT RESTING WITH EYES CLOSED. RESP EVEN AND REGULAR. SR UP X2, CALL LIGHT WITHIN REACH.
[2019-03-19 04:00] VITALS: BP 125/86
--- NOTE | 2019-03-19 04:18 | NUR ---
PT AWAKE; DENIES ANY DISCOMFORT. REPOSITIONED IN BED FOR COMFORT. DRESSING TO OLD BIN DRAIN SITE CLEAN, DRY AND INTACT. SR UP X2, CALL LIGHT WITHIN REACH AND BED ALARM ON.
--- NOTE | 2019-03-19 06:17 | NUR ---
AM FSBS 82. NO COVERAGE NECESSARY. PT MORE COOPERATIVE THIS AM. PT CLEAN AND DRY AT THIS TIME. NEEDS MET; WILL CONTINUE TO MONITOR.
--- NOTE | 2019-03-19 07:30 | NUR ---
ASSESSMENT COMPLETED. ALERT AND ORINTED. TELEMERTY SHOWS AFIB WITH BBB AT 63. DRSG TO ABD DRY AND INTACT. STAHL CATH PATENT TO GRAVITY BAG. LEFT GREAT TOE WITH BETADINE TO OPEN AREA OPEN TO AIR.LEFT HEEL WITH 4X4 DRSG. RIGHT HEEL SPONGY. DRSG TO SCRAL AREA.
[2019-03-19 08:34] VITALS: BP 114/77
[2019-03-19 08:46] LABS: ALBUMIN 2.1 g/dL (3.4-5.0); BILIRUBIN - TOTAL 2.18 mg/dL (0.2-1.3); CALCIUM 7.4 mg/dL (8.5-10.1); CARBON DIOXIDE 21.6 mmol/L (21.0-32.0); CREATININE - SERUM 1.9 mg/dL (0.6-1.3); MAGNESIUM - SERUM 1.6 mg/dL (1.8-2.4); PHOSPHOROUS 2.5 mg/dL (2.5-4.9); POTASSIUM - SERUM 3.6 mmol/L (3.5-5.1); PROTEIN - SERUM 5.9 g/dL (6.4-8.2)
[2019-03-19 08:48] LABS: INR 3.64 (0.85-1.17); PROTIME 35.4 SECONDS (11.6-15.0)
[2019-03-19 12:59] VITALS: BP 117/74
[2019-03-19 13:47] LABS: BASOPHILS 0 % (0-2); EOSINOPHILS 3.1 % (0-7); HEMATOCRIT 25.8 % (42.0-54.0); HEMOGLOBIN 8.9 g/dL (13.5-17.5); IMMATURE GRANULOCYTES 0.8 % (0-5); LYMPHOCYTES 11.7 % (15-50); MCH 30.1 pg (26.0-34.0); MCHC 34.5 g/dL (31.0-37.0); MCV 87.2 fL (80.0-100.0); MEAN PLATELET VOLUME 11.8 fL (7.4-10.4); MONOCYTES 8.3 % (2-11); NEUTROPHILS 76.1 % (40-80); RBC 2.96 10x6/uL (4.20-6.10); RDW 17.4 % (11.5-14.5); WBC 12.2 10x3/uL (4.8-10.8)
[2019-03-19 13:50] LABS: PLATELET COUNT 85 10x3/uL (130-400)
[2019-03-19 14:09] LABS: PLATELET ESTIMATE DECREASED; PLATELET MORPHOLOGY PLT CLUMPS PRESENT
[2019-03-19 15:40] LABS: ALBUMIN 2.3 g/dL (3.4-5.0); ANION GAP 12.4 mmol/L (8-16); BILIRUBIN - TOTAL 1.67 mg/dL (0.2-1.3); CALCIUM 7.2 mg/dL (8.5-10.1); CREATININE - SERUM 2.1 mg/dL (0.6-1.3); POTASSIUM - SERUM 3.4 mmol/L (3.5-5.1); PROTEIN - SERUM 5.8 g/dL (6.4-8.2)
[2019-03-19 17:53] VITALS: BP 107/70
[2019-03-19 20:00] VITALS: BP 98/71
--- NOTE | 2019-03-19 21:55 | NUR ---
INITIAL ROUNDS COMPLETED AT 1910 HRS. PT DENIED ANY DISCOMFORT. ASSESSMENT COMPLETED AT 1950 HRS. VSS. CAF WITH BBB PER CMHR 68. PT ALERT AND FOLLOWS COMMANDS. WORD SALAD NOTED. IV TO R WRIST WOTJ D5LR AT 30CC/HR AND DOBUTREX AT 2.5MCQ/KG/MIN,(10.2CC/HR). IV PATENT. L HEEL WITH APPROX 3CM STAGE 2 S/P BURST BLISTER. L BIG TOE WITH 1CM STASIS ULCER. LARGE MEPILEX NOTED TO SACRAL AREA. INC X4 TO ABD WITH STERI STRIPS CLEAN, DRY AND INTACT. OLD BIN DRAIN SITE DRESSING CLEAN, DRY AND INTACT. ABD LARGE WITH ACTIVE BS NOTED. PT ON A 1ST STEP AIR OVERLAY MATTRESS. LAB HERS AT APPROX 2030FOR LAB DRAW. PM FSBS 130. NO COVERAGE NEEDED. PM MEDS GIVEN. LAB BACK AT APPROX 0 HRS. TO ATTEMPT ANOTHER DRAW FOR PT/INR. PT REFUSES DRAW AT THAT TIME. PT ALLOWED STAFF TO REPOSITION HIM ONTO R SIDE. PT CURRENTLY RESTING WITH EYES CLOSED. RESP EVEN AND REGULAR. SR UP X2, CALL LIGHT WITHIN REACH AND BED ALARM ON.
--- NOTE | 2019-03-19 23:55 | NUR ---
PT AWAKE, DENIES ANY DISCOMFORT. IV PATENT. SR UP X2, CALL LIGHT WITHIN REACH.
[2019-03-20] VITALS: BP 114/72
--- NOTE | 2019-03-20 01:53 | NUR ---
PT REPOSITIONED ONTO L SIDE. NO CHANGES TO STATUS NOTED. SR UPX2, CALL LIGHT WITHIN REACH AND BED ALARM ON.
[2019-03-20 04:00] VITALS: BP 118/73
--- NOTE | 2019-03-20 04:27 | NUR ---
PT AWAKE; DENIES ANY DISCOMFORT. DECLINES OFFER TO REPOSITION IN BED. OLD BIN DRAIN SITE CLEAN, DRY AND INTACT. SR UP X2, CALL LIGHT WITHIN REACH AND BED ALARM ON.
[2019-03-20 04:57] LABS: BASOPHILS 0.1 % (0-2); EOSINOPHILS 3.5 % (0-7); HEMATOCRIT 27.2 % (42.0-54.0); IMMATURE GRANULOCYTES 0.6 % (0-5); LYMPHOCYTES 13.2 % (15-50); MCHC 33.1 g/dL (31.0-37.0); MCV 90.7 fL (80.0-100.0); MEAN PLATELET VOLUME 11.9 fL (7.4-10.4); MONOCYTES 8.8 % (2-11); NEUTROPHILS 73.8 % (40-80); PLATELET COUNT 96 10x3/uL (130-400); RDW 17.8 % (11.5-14.5); WBC 12.7 10x3/uL (4.8-10.8)
[2019-03-20 05:15] LABS: ALBUMIN 1.9 g/dL (3.4-5.0); ANION GAP 14.8 mmol/L (8-16); BILIRUBIN - TOTAL 1.49 mg/dL (0.2-1.3); CALCIUM 7.2 mg/dL (8.5-10.1); CARBON DIOXIDE 16.5 mmol/L (21.0-32.0); POTASSIUM - SERUM 3.3 mmol/L (3.5-5.1); PROTEIN - SERUM 5.6 g/dL (6.4-8.2)
--- NOTE | 2019-03-20 06:04 | NUR ---
VSS THROUGHOUT NIGHT. PT DENIED ANY DISCOMFORT. PT TURNED SEVERAL TIMES DURING SHIFT. AM FSBS 85. NO COVERAGE NEEDED. AM K+3.3. KCL 40 MEQ PO GIVEN WITH AM MEDS PER S/S. NEEDS MET; WILL CONTINUE TO MONITOR.
--- NOTE | 2019-03-20 07:30 | NUR ---
ASSESSMENT COMPLETED. TELEMERTY SHOWS CAF. RIGHT WRIST WITH NA BICARB AT 40 ON A FIRST STEP MATTRESS. STAHL ATH TO GRAVITY BAG.. DENIES ANY NEEDS
[2019-03-20 09:37] VITALS: BP 123/79
[2019-03-20 12:44] VITALS: BP 121/86
[2019-03-20 18:49] VITALS: BP 111/75
--- NOTE | 2019-03-20 19:44 | NUR ---
BEDSIDE ROUNDING COMPLETED. PT DENIES ANY DISCOMFRT. REFUSES LAB DRAW AT THIS TIME.
[2019-03-20 20:00] VITALS: BP 118/72
--- NOTE | 2019-03-20 23:37 | NUR ---
ASSESSMENT COMPLETED AT 2005 HRS. VSS. PT ALERT,FOLLOWS COMMANDS BUT HAS WORD SALAD. PT BECOMES VERY AGITATED TRYING TO COMMUNICATED. ANSWERS YES/NO QUESTIONS WELL. LUNGS DIMINISHED IN BASES BILAT. CAF WITH BBB PER CM HR 98. ABD LARGE WITH ACTIVE BS NOTED. INCISONS X4 WITH STERI STRIPS DRY AND INTACT. DRESSING TO DC'D BIN DRAIN SITE CLEAN AND DRY. MEPILEX NOTED TO BUTTOCKS. L BIG TOE WITH APPROX 1CM STASIS ULSER. STAGE 2 TO L HEEL APPROX 3CM IN DIAMETER. R HEEL BOGGY. BILAT HEEL PROTECTORS IN PLACE. STAHL DRAINING DARK YELLOW URINE. PT ON 1ST STEP AIR OVERLAY MATTRESS. PM MFSBS 139 NO COVERAGE NEEDED. REFUSED PM SNACK. PM MEDS GIVEN. GOWN AND SHEET SATURATED WITH YELLOW EXUDATE AT 2300 HRS. DRESSING TO DC'D BIN DRAIN SITE SATURATED. DRESSING REMOVED AND NEW DRESSING APPLIED USING STERIL 4X4'S AND TAPE. GOWN AND SHEET CHANGED. PT REPOSITIONED ONTO R SIDE AT THAT TIME. PT CURRENTLY RESTING WITH EYES CLOSED. RESP EVEN AND REGULAR. SR UP X2, CALL LIGHT WITHIN REACH AND BED ALARM ON.
[2019-03-21 00:18] VITALS: BP 117/75
--- NOTE | 2019-03-21 02:44 | NUR ---
PT AWAKE; REFUSES TO ALLOW STAFF TO TURN. SR UP X2, CALL LIGHT WITHIN REACH AND BED ALARM ON.
[2019-03-21 04:00] VITALS: BP 119/74
--- NOTE | 2019-03-21 04:29 | NUR ---
PT ALLOWED STAFF TO REPOSITION HIM ONTO R SIDE. VSS. DENIES ANY DISCOMFORT. SR UPX2, CALL LIGHT WITHIN REACH AND BED ALARM ON.
[2019-03-21 05:49] LABS: ANION GAP 11.9 mmol/L (8-16); BILIRUBIN - TOTAL 1.26 mg/dL (0.2-1.3); CREATININE - SERUM 2.1 mg/dL (0.6-1.3); MAGNESIUM - SERUM 1.4 mg/dL (1.8-2.4); POTASSIUM - SERUM 3.6 mmol/L (3.5-5.1); PROTEIN - SERUM 5.7 g/dL (6.4-8.2)
[2019-03-21 05:51] LABS: CARBON DIOXIDE 21.7 mmol/L (21.0-32.0)
[2019-03-21 05:54] LABS: BASOPHILS 0.1 % (0-2); EOSINOPHILS 2.9 % (0-7); HEMATOCRIT 26.4 % (42.0-54.0); HEMOGLOBIN 8.9 g/dL (13.5-17.5); IMMATURE GRANULOCYTES 0.6 % (0-5); LYMPHOCYTES 16.4 % (15-50); MCH 29.8 pg (26.0-34.0); MCHC 33.7 g/dL (31.0-37.0); MCV 88.3 fL (80.0-100.0); MEAN PLATELET VOLUME 11.5 fL (7.4-10.4); MONOCYTES 8.4 % (2-11); NEUTROPHILS 71.6 % (40-80); PLATELET COUNT 127 10x3/uL (130-400); RBC 2.99 10x6/uL (4.20-6.10); RDW 17.3 % (11.5-14.5); WBC 13.2 10x3/uL (4.8-10.8)
[2019-03-21 06:29] LABS: INR 1.56 (0.85-1.17); PROTIME 18.1 SECONDS (11.6-15.0)
--- NOTE | 2019-03-21 06:40 | NUR ---
VSS THROUGHOUT NIGHT. CAF PER CM. PT ONLY ALLOWED DTAFF TO TURN HIM TWICE DURING SHIFT. NEEDS MET; WILL CONTINUE TO MONITOR.
--- NOTE | 2019-03-21 07:36 | NUR ---
ROUNDING DONE WITH PATIENT BEING IN CONTACT ISOLATION ON 1ST STEP OVERLAY MATTRESS. HOB UP AT 30 DEGREES. RESTING WITH EYES CLOSED. RIGHT WRIST SEEN WITH BICARB INFUSING AT 50 CC/HR, DOBUTAMINE AT 10.2 CC/HR. ON HEART MONITOR. STAHL CATH PATENT. ON EP, LABS ARE BEING COVERED WITH ORAL SUPPLEMENT.
[2019-03-21 08:28] VITALS: BP 120/75
--- NOTE | 2019-03-21 08:49 | NUR ---
MADE PATIENT NPO FOR EGD. I TRIED TO CALL LEANA KAPOOR IN CHART FOR PHONE CONSENT BUT HAD TO LEAVE A VOICE MESSAGE. I TRIED TO ASK JULESTENT FOR CONSENT AND I GET "NOOOOOO, WHYYYYY". I HAVE TRIED TO EXPLAIN PROCEDURE TO HIM AND HE REPEATS THIS AGAIN.
--- NOTE | 2019-03-21 11:13 | NUR ---
PATIENT IS STILL NPO FOR EGD. DOES NOT WANT TO BE TURNED WHEN ASKED. STATES THAT HE IS "COMFORTABLE".
--- NOTE | 2019-03-21 12:03 | NUR ---
OT NOTE: PT SLEEPING; AROUSED TO VOICE. RESISTANT TO ROM EXS TO UE/LES. PT CONTINUALLY STATING , "NOOO!!" . HOWEVER, AFTER SEVERAL REPS, PT WAS LESS RESISTANT. ATTEMPTED TO REPOSITION MORE ON SIDE. GOLDIE MCDONALD, OTR/L
[2019-03-21 12:58] VITALS: BP 116/81
--- NOTE | 2019-03-21 13:42 | NUR ---
Nutrition Follow-up: Pt currently NPO for EGD. Per chart review, avg meal intake (over past 3 days) 66%. BM: 03/19 Wt: 220# (03/20); wt on 03/18 was 306#. Rec reweigh. Labs noted: Mg 1.4, PO4 2.0, Ca 7.0, GFR 35, Alb 2.0 Meds noted: Neutraphos, KDur, MagOx After procedure, rec ADAT as medically feasible. RD following.
--- NOTE | 2019-03-21 14:38 | NUR ---
1430-TO GI LAB VIA BED.
--- NOTE | 2019-03-21 15:14 | NUR ---
RETURNS FROM GI LAB.
[2019-03-21 17:28] VITALS: BP 134/91
--- NOTE | 2019-03-21 18:34 | NUR ---
ATE HIS FULL LIQUID SUPPER WITH NO PROBLEMS. AWAKE, WATCHING TV.
[2019-03-21 20:43] VITALS: BP 123/80
--- NOTE | 2019-03-21 21:53 | NUR ---
HS MEDS GIVEN WITH FRESH ICE WTER. BS 111, NO COVERAGE NEEDED PER S/S. BED LOW, CL IN REACH.
[2019-03-22 00:04] VITALS: BP 125/79
--- NOTE | 2019-03-22 00:48 | NUR ---
I have reviewed this patient and I concur with the Shift Assessment completed by the Licensed Practical Nurse today this shift.
--- NOTE | 2019-03-22 03:46 | NUR ---
RESTING WITH EYES CLOSED, RESPERATONS EVEN, NO S/S DISTRESS NOTED.
[2019-03-22 04:12] VITALS: BP 109/70
[2019-03-22 06:18] LABS: INR 1.51 (0.85-1.17); PROTIME 17.6 SECONDS (11.6-15.0)
[2019-03-22 06:30] LABS: HEMATOCRIT 25.4 % (42.0-54.0); HEMOGLOBIN 8.7 g/dL (13.5-17.5); MCH 30.1 pg (26.0-34.0); MCHC 34.3 g/dL (31.0-37.0); MCV 87.9 fL (80.0-100.0); MEAN PLATELET VOLUME 11.5 fL (7.4-10.4); PLATELET COUNT 127 10x3/uL (130-400); RBC 2.89 10x6/uL (4.20-6.10); WBC 11.2 10x3/uL (4.8-10.8)
[2019-03-22 06:58] LABS: ALBUMIN 1.9 g/dL (3.4-5.0); BILIRUBIN - TOTAL 1.33 mg/dL (0.2-1.3); CARBON DIOXIDE 20.7 mmol/L (21.0-32.0); CREATININE - SERUM 1.9 mg/dL (0.6-1.3); MAGNESIUM - SERUM 1.6 mg/dL (1.8-2.4); PHOSPHOROUS 2.3 mg/dL (2.5-4.9); PROTEIN - SERUM 5.4 g/dL (6.4-8.2)
[2019-03-22 07:51] LABS: ANION GAP 11.7 mmol/L (8-16); POTASSIUM - SERUM 3.4 mmol/L (3.5-5.1)
[2019-03-22 08:26] LABS: ACANTHOCYTES OCC; ANISOCYTOSIS OCC; EOSINOPHILS 6 % (0-7); HYPOCHROMASIA OCC; LYMPHOCYTES 21 % (15-50); MONOCYTES 14 % (2-11); NEUTROPHILS 59 % (40-80); PLATELET ESTIMATE NORMAL
[2019-03-22 08:42] VITALS: BP 123/82
--- NOTE | 2019-03-22 11:47 | NUR ---
BLOOD SUGAR OF 103, NO COVERAGE NEEDED PER S/S. MARRIAGE AND FAMILY COUNSELOR AT BEDSIDE GETTING VITAL SIGNS. PT DENIES ANY NEEDS AT THIS TIME. CALL LIGHT IN REACH, NAD NOTED,W ILL CONTINUE TO MONITOR.
[2019-03-22 12:13] VITALS: BP 134/89
--- NOTE | 2019-03-22 12:39 | NUR ---
OT NOTE: PT MUCH MORE CLEAR COGNITIVELY. CONTINUES DIFFICULTY WITH EXPRESSING NEEDS DUE TO APHASIA. HOWEVER, APPEARED TO UNDERSTAND WITH MORE VERBALIZATION THAN LAST SEVERAL DAYS. PT HAS ONLY BEEN SAYING "NO" OR "WHY" RESPONSES WITH THIS THERAPIST , BUT TODAY HE WAS ABLE TO VERBALIZE MORE WITH LESS AGITATION. PERFORMED FEEDING WITH SET UP OF TRAY AND CONSUMED 100%. ASSISTED PT WITH BED BATH, HE WAS ABLE TO WASH FACE, HANDS, AND UPPER BODY WITH MIN ASSIST; MAX ASSIST WITH LES AND TOTAL ASSIST WITH PERINEAL AREA. BED MOB WITH MAX ASSIST TO PROVIDE CLEAN PADS. REPOSITIONED PT IN BED. PT WITH HEEL PROTECTORS BUT PRESSURE AREAS STILL NOTED ON LATERAL ASPECT OF L FOOT. GOLDIE MCDONALD, OTR/L
--- NOTE | 2019-03-22 14:47 | NUR ---
OT NOTE: PT REQUIRED MAX A WITH BED BATH TASKS. PT COMPLETED BED MOB TASKS WITH MAX A. PT COMPLETED POSITIONING WITH MAX A. THANK YOU, MICHELLE PATTERSON
--- NOTE | 2019-03-22 14:50 | NUR ---
PT SCREAMING OUT FOR HELP. WENT TO TALK TO PT TO SEE WHAT HE NEEEDED, THIS NURSE WAS NOT ABLE TO COMPREHEND WHAT PT NEEDED. PT GOT FRUSTRATED WITH THIS NURSE AND STARTED SCREAMING " OUT, OUT, GET THE FUCK OUT OF HERE." THIS NURSE REMOVED HER SELF ROOM AND GOT ANOTHER NURSE TO TRY AND SEE IF SHE COULD UNDERSTAND PT. PT'S CAREGIVER CALLED AT THIS TIME TO COME SIT WITH PT, SINCE PT KEEPS SCREAMING NONSTOP THAT HE WANTS OUT. CAREGIVER STATED THAT SHE WOULD COME SOON SHE COULD, SHE WAS AT A DOCTORS APPT. WENT TO INFORMED PT BUT HE JUST SCREAMED "OUT".
[2019-03-22 15:50] VITALS: BP 137/77
--- NOTE | 2019-03-22 16:59 | NUR ---
BLOOD SUGAR OF 98, NO COVERAGE PER S/S. ALSO GAVE 1MG OF DILAUDID FOR PAIN LEVEL OF 8/10. PT DENIES ANY NEEDS AT THIS TIME. CAREGIVER AT BEDSIDE, NAD NOTED, WILL CONTINUE TO MONITOR.
[2019-03-22 20:00] VITALS: BP 115/76
[2019-03-23] VITALS (7 sets, daily range): BP systolic 120–131; BP diastolic 68–91
--- NOTE | 2019-03-23 02:42 | NUR ---
I have reviewed this patient and I concur with the Shift Assessment completed by the Licensed Practical Nurse today this shift.
--- NOTE | 2019-03-23 03:02 | NUR ---
RESTING WITH EYES CLOSED, RESPERATIONS EVEN, NO S/S DISTRESS NOTED.
[2019-03-23 06:01] LABS: BASOPHILS 0.1 % (0-2); EOSINOPHILS 3.1 % (0-7); HEMATOCRIT 27.5 % (42.0-54.0); HEMOGLOBIN 9.3 g/dL (13.5-17.5); IMMATURE GRANULOCYTES 0.5 % (0-5); LYMPHOCYTES 16.8 % (15-50); MCH 30.4 pg (26.0-34.0); MCHC 33.8 g/dL (31.0-37.0); MEAN PLATELET VOLUME 11.8 fL (7.4-10.4); MONOCYTES 10.5 % (2-11); PLATELET COUNT 127 10x3/uL (130-400); RBC 3.06 10x6/uL (4.20-6.10); RDW 17.3 % (11.5-14.5); WBC 10.4 10x3/uL (4.8-10.8)
[2019-03-23 06:24] LABS: MCV 89.9 fL (80.0-100.0)
[2019-03-23 06:28] LABS: ALBUMIN 1.9 g/dL (3.4-5.0); ANION GAP 11.6 mmol/L (8-16); BILIRUBIN - TOTAL 1.43 mg/dL (0.2-1.3); CALCIUM 7.4 mg/dL (8.5-10.1); CARBON DIOXIDE 23.1 mmol/L (21.0-32.0); CREATININE - SERUM 1.8 mg/dL (0.6-1.3); MAGNESIUM - SERUM 1.7 mg/dL (1.8-2.4); PHOSPHOROUS 2.4 mg/dL (2.5-4.9); POTASSIUM - SERUM 3.7 mmol/L (3.5-5.1); PROTEIN - SERUM 5.8 g/dL (6.4-8.2)
[2019-03-23 06:34] LABS: INR 1.48 (0.85-1.17); PROTIME 17.3 SECONDS (11.6-15.0)
--- NOTE | 2019-03-23 12:37 | NUR ---
Nutrition Follow-up: Tolerating PO intake. Pt s/p EGD on 03/21; showed gastritis and esophagitis with nonbleeding ulcers. Working with PIPE FINISHER; noted pt tolerated trials of thin liquids without any overt s/s of aspiration. Diet: Full liquid with Ensure PO intake: 83% avg meal intake (03/22) Last BM: 03/19 Wt: 300# Labs noted: Glu 82, PO4 2.4, Alb 1.9, Mg 1.7 Meds noted: Miralax, KDur, Albumin, Neutraphos, MagOx Rec ADAT as medically feasible. RD following.
--- NOTE | 2019-03-23 12:45 | NUR ---
PT VOMITED A YELLOW LIQUID ON HIMSELF. PT WAS CLEANED BY ROBERT PERSAUD. PT COMPLAINED OF NAUSEA. PRN ZOFRAN GIVEN. WILL CONTINUE TO MONITOR.
--- NOTE | 2019-03-23 13:29 | NUR ---
Rehab Prescreening Consult recieved and the chart has been reviewed. According to PT and OT notes he is at his baseline which is total care. He is also [employer] managed care and would require a preauth. He is to low level at this time to be able to activiely participate in the required 3 hrs of therapy every day 5-6 days a week. Spoke to the CM Shelly Garcia RN, recommend a skilled level of care at discharge. Nadeen Hebert RN Clinical Liaison, Rehab
--- NOTE | 2019-03-23 14:39 | MORECARE ---
CASE MANAGEMENT DISCHARGE SUMMARY PATIENT: YUKI ESPINOZA UNIT: [id number] ADM DATE: 03/10/19 AGE: 58 : 62 SEX: M ROOM/BED: D.2074 AUTHOR: SILVIA,DOC PHYSICIAN: REFERRING PHYSICIAN: FIGUEROA OTERO MD DATE OF SERVICE: 03/23/19 Discharge Plan Patient Name: YUKI ESPINOZA Facility: [facility]:[place] : 1960 Planned Disposition: Home with Home Health Anticipated Discharge Date: Discharge Date: Expected LOS: Initial Reviewer: [email or web address] Initial Review Date: 03/12/2019 Generated: 03/23/19 3:38 pm Comments DCP- Discharge Planning Updated by [id number]: Indigo Meier on 03/23/19 1:[address] CM NOTIFIED THAT PATIENT WAS TO LOW FUNCTIONING FOR INPATIENT REHAB. CM WILL CONTINUE FOLLOW AND ASSIST NEEDED WITH DISCHARGE PLANNING NEEDED. DCP- Discharge Planning Updated by [id number]: Maikel Torres on 03/17/19 11:[address] Patient Name: YUKI ESPINOZA Encounter No: [id number] : 1960 Primary Insurance: [employer]ICARE ADV Anticipated DC Date: Planned Disposition: Home with Home Health External Planned Provider: [facility] DCP follow-up note: CM PARTICIPATED IN MULTIDICIPLINARY TEAM MEETING, INFORMED THAT HOME HEALTH MUST BE INFORMED OF PT'S POSITIVE URINE CULTURE FOR MDR. MAIRA CALLED AND SPOKE TO PRAVEEN AT [facility], , NOTIFIED OF MDR IN URINE; PRAVEEN REPORTS PT HAS FREQUENT UTI'S AND HOME IS NOT SANITARY ENVIRONMENT. THEY WILL ACCEPT BACK FOR HOME HEALTH BUT WILL NOT DO ANY IV ANTIBIOTICS IN THE HOME DUE TO HOME CONDITION. CM FAXED HOSPITAL UPDATE TO [facility] AT [phone]. FOR RESUMPTION OF HOME HEALTH, CALL [facility], ; FAX DISCHARGE INFORMATION TO [facility] AT [phone]. [facility] WILL NOT DO ANY IV MEDICATIONS IN THE HOME. Maikel Torres, CASE MANAGEMENT DCP- Discharge Planning Updated by [id number]: Maikel Torres on 03/14/19 4:[address] Patient Name: YUKI ESPINOZA Admission Status: ER Accout number: [id number] Admission Date: 03-10-2019 : 1960 Admission Diagnosis: Attending: FIGUEROA OTERO Current LOS: 4 Anticipated DC Date: Planned Disposition: Home with Home Health Primary Insurance: [employer] MEDICARE ADV PLANNED EXTERNAL PROVIDER: [facility] Discharge Planning Comments: CM MET WITH PT'S SIGNIFICANT OTHER, DO MARS, IN ROOM TO DISCUSS DISCHARGE PLANNING AND NEEDS. DO REPORTS BEING PT'S POWER OF STAFF DEVELOPMENT MANAGER. PT LIVES WITH HER AND IS TOTALLY DEPENDENT EXCEPT FOR EATING. PT HAS ALL NEEDED MEDICAL EQUIPMENT AT HOME WITH NO PREFERRED MEDICAL EQUIPMENT PROVIDER. PT HAS HOME HEALTH FOR NURSING AND 30 HOURS OF PRIVATE DUTY CARE WEEKLY. PT ALSO HAS HOUSECALLS THEY ARE NOT ABLE TO TRANSPORT PT TO AND FROM DOCTOR APPOINTMENTS. CM DISCUSSED AVAILABILITY OF HOME HEALTH, REHAB SERVICES AND MEDICAL EQUIPMENT. DO REPORTS PT WILL RETURN HOME AT DISCHARGE WITH [facility] RESUMPTION AND THEY WOULD LIKE PHYSICAL THERAPY AT HOME WITH HOME HEALTH AGAIN. PT TO TRANSPORT VIA AMBULANCE. IMPORTANT MESSAGE FROM MEDICARE PROVIDED AND EXPLAINED. CHOICE SIGNED FOR [facility]. FOR DISCHARGE HOME AND RESUMPTION OF HOME HEALTH SERVICES, NOTIFY [facility] AT [phone], FAX DISCHARGE INFORMATION TO [facility] AT [phone]. PT TO TRANSPORT HOME VIA AMBULANCE. Sr. Operations Manager: Maikel Torres DCPIA - Discharge Planning Initial Assessment Updated by [id number]: Maikel Torres on 03/14/19 4:56 pm * How many steps to enter\exit or inside your home? NONE * PCP DR. ALDRICH * Pharmacy [facility] [address] * Preadmission Environment Home with Family * ADLs Partial Dependent * Partial ADLs (Assistance needed) Ambulation Bathing Dressing Medication Management Toileting Transfers * Equipment Bedside [facility] Bed Nazia Lift Rolling Walker Shower Chair Trapeze Wheelchair * Other Equipment NO MEDICAL EQUIOPMENT PROVIDER PREFERENCE * List name and contact numbers for known caregivers / representatives who currently or will assist patient after discharge: DO MARS, SIGNIFICANT OTHER / POA, * Verbal permission to speak to the caregivers and representatives has been obtained from the patient. N/A * Community resources currently utilized Home Health Private Duty Care * Please name any agencies selected above. HOME HEALTH NURSING AND AIDE - [facility] HEALTH PRIVATE DUTY CAREGIVER - [facility]- 30 HOURS PER WEEK * Additional services required to return to the preadmission environment? No * Can the patient safely return to the preadmission environment? Yes * Has this patient been hospitalized within the prior 30 days at any hospital? Yes Coverage Notice Reviewer: [email or web address] Torres Notice Issued Date-Time: 03/14/2019 15:15 Notice Type: IM Discharge Notice Notice Delivered To: Family Member Relationship to Patient: Power of Costumer Assistant [employer] Name: DO MARS Delivery Method: HAND - Hand Delivered Amberly Days: Prior Verbal Notification: Recipient Understood Notice: Yes Recipient Signature: Yes Med Rec Note Co-signed by Attending: Coverage Notice Comment: Reviewer: [email or web address] Marcelino Torres Notice Issued Date-Time: 03/14/2019 15:15 Notice Type: Patient Choice Letter Notice Delivered To: Family Member Relationship to Patient: Power of Costumer Assistant [employer] Name: DO MARS Delivery Method: HAND - Hand Delivered Amberly Days: Prior Verbal Notification: Recipient Understood Notice: Yes Recipient Signature: Yes Med Rec Note Co-signed by Attending: Coverage Notice Comment: [facility] Last DP export: 03/18/19 12:56 p Patient Name: YUKI ESPINOZA Page [id number] at 1439 All edits/amendments must be made on the electronic document DICTATION DATE: 03/23/191437 DIGITAL MARKETING OFFICER: SHAHANA 03/23/191437 RPT#: [id number] DC DATE: STATUS: ADM IN [facility] [address] [place] [address] END OF REPORT
--- NOTE | 2019-03-23 15:23 | NUR ---
OT NOTE: PT PERFORMED WELL TODAY. SIMPLE GROOMING INCLUDING WASHING HANDS ADN FACE WITH CLOTH. ABLE TO REACH FOR ITEMS ON TRAY INCLUDING CUP AND SPOON. REPOSITIONED FOR COMFORT AND SKIN PROTECTION WITH MAX ASSIST X 2. GOLDIE MCDONALD, OTR/L
--- NOTE | 2019-03-23 15:47 | NUR ---
OT NOTE: PT REQUIRED MAX A FOR HYGIENE TASKS FOR CLEANING. PT COMPLETED BED MOB FOR SIDE ROLLING WITH MIN/MOD A USING RAIL. PT COMPLETED UE AROM AXS. THANK YOU, MICHELLE PATTERSON
--- NOTE | 2019-03-23 15:56 | NUR ---
I have reviewed this patient and I concur with the Shift Assessment completed by the Licensed Practical Nurse today this shift.
--- NOTE | 2019-03-23 19:12 | NUR ---
CHANGED PT STAHL BAG
--- NOTE | 2019-03-23 19:35 | NUR ---
ASSESSMENT COMPLETE, PTIN BED RESTING WITH EYES CLOSED. AROUSES TO VERBAL STIMULI. RESPERATIONS EVEN ON RA. IV TO RIGHT WRIST WITH DOUBTAMINE INFUSING AT 10.2 CC/HR. IV SITE CLEAN AND DRY. AIR MATTRESS INFLATED. BED LOW, CL IN REACH.
--- NOTE | 2019-03-23 21:09 | NUR ---
HS MEDS GIVEN WITH [place]. BS 115, NO COVERAGE NEEDED PER S/S. PT DENIES PAIN OR NEEDS.
[2019-03-24 04:30] VITALS: BP 1129/54
[2019-03-24 06:37] LABS: INR 1.45 (0.85-1.17); PROTIME 17.1 SECONDS (11.6-15.0)
[2019-03-24 06:38] LABS: BASOPHILS 0.1 % (0-2); EOSINOPHILS 2.7 % (0-7); HEMATOCRIT 26.4 % (42.0-54.0); HEMOGLOBIN 8.8 g/dL (13.5-17.5); IMMATURE GRANULOCYTES 0.2 % (0-5); LYMPHOCYTES 16.4 % (15-50); MCH 29.9 pg (26.0-34.0); MCHC 33.3 g/dL (31.0-37.0); MCV 89.8 fL (80.0-100.0); MEAN PLATELET VOLUME 11.7 fL (7.4-10.4); MONOCYTES 9.7 % (2-11); NEUTROPHILS 70.9 % (40-80); PLATELET COUNT 126 10x3/uL (130-400); RBC 2.94 10x6/uL (4.20-6.10); RDW 17.1 % (11.5-14.5); WBC 10.4 10x3/uL (4.8-10.8)
[2019-03-24 06:52] LABS: ANION GAP 11.8 mmol/L (8-16); BILIRUBIN - TOTAL 1.2 mg/dL (0.2-1.3); CALCIUM 7.6 mg/dL (8.5-10.1); CARBON DIOXIDE 21.7 mmol/L (21.0-32.0); CREATININE - SERUM 1.8 mg/dL (0.6-1.3); MAGNESIUM - SERUM 1.6 mg/dL (1.8-2.4); PHOSPHOROUS 2.8 mg/dL (2.5-4.9); POTASSIUM - SERUM 3.5 mmol/L (3.5-5.1); PROTEIN - SERUM 5.8 g/dL (6.4-8.2)
--- NOTE | 2019-03-24 08:10 | NUR ---
PT ALERT AND ORIENTED X4 THIS AM. PT DRANK A MILK FOR BREAKFAST. PT STATES HE IS NAUSEATED BUT REFUSES PRN ZOFRAN. BED LOW CALL LIGHT WITHIN REACH. WILL CONTINUE TO MONITOR.
[2019-03-24 08:58] VITALS: BP 128/80
--- NOTE | 2019-03-24 10:55 | NUR ---
PT REFUSING TO TAKE ANY PO MEDICATION. HAVE ASKED HI 3 TIMES. WILL CONTINUE TO MONITOR.
--- NOTE | 2019-03-24 11:12 | NUR ---
OT NOTE: PT WITH EMESIS BAG IN HAND. VERY POOR PO INTAKE THIS AM. PT ABLE TO OPEN BOTTLE AND CARTON WITHOUT ASSIST; ABLE TO WASH FACE, HANDS, AND UPPER BODY WITH WASHCLOTH. MAX ASSIST WITH BED MOB; REPOSITONED IN BED TO PREVENT PRESSURE AREAS. GOLDIE MCDONALD, OTR/L
--- NOTE | 2019-03-24 12:09 | NUR ---
PT HAD EXPLOSIVE WATERY DIARRHEA WHILEGETTING A BATH. PT SKIN IS PEELED ON LEFT HEEL. NEW DRESSING PLACED. PT SCROTUM SWOLLEN TO SOFTBALL SIZE. CONSIDERABLE DIFFRENCE FROM YESTERDAY. PT REFUSES TO TAKE ANY MEDICATION PO AND REFUSES HIS BLOOD SUGAR STICK.
--- NOTE | 2019-03-24 12:28 | MORECARE ---
CASE MANAGEMENT DISCHARGE SUMMARY PATIENT: YUKI ESPINOZA UNIT: [id number] ADM DATE: 03/10/19 AGE: 58 : 62 SEX: M ROOM/BED: D.2124 AUTHOR: SILVIADOC PHYSICIAN: REFERRING PHYSICIAN: FIGUEROA OTERO MD DATE OF SERVICE: 03/24/19 Discharge Plan Patient Name: YUKI ESPINOZA Facility: [facility]:[place] : 1960 Planned Disposition: Home with Home Health Anticipated Discharge Date: Discharge Date: Expected LOS: Initial Reviewer: [id number] Initial Review Date: 03/12/2019 Generated: 03/24/19 1:28 pm Comments DCP- Discharge Planning Updated by [id number]: Maikel Torres on 03/24/19 11:[address] Patient Name: YUKI ESPINOZA Encounter No: [id number] : 1960 [facility] Anticipated DC Date: Planned Disposition: Home with Home Health External Planned Provider: [facility] DCP follow-up note: CM RECEIVED ORDER FOR INPATIENT REHAB PRESCREENING. CM [facility] DO MARS[facility], ; DO REPORTS PT IS NOT GOING TO REHAB OR CORRECTION FACILITY. SHE WANTS TO TAKE PT HOME WITH [facility] RESUMPTION AND CAREGIVER SERVICES RESUMPTION THROUGH MEDICAID. CM DISCUSSED IMPORTANT MESSAGE FROM MEDICARE, DO REPORTS UNDERSTANDING, ORIGINAL LEFT IN PT'S ROOM FOR DO. CM SPOKE TO ADRIAN ROCA WHO INFORMED CM THAT PT WILL STAY TO COMPLETE IV ANTIBIOTICS. CM HAS PREVIOUSLY SPOKEN TO [facility], [facility] WHO WILL NOT DO IV ANTIBIOTICS AT HOME DUE TO PT'S HOME CONDITION. FOR RESUMPTION OF HOME HEALTH, CALL [facility], ; FAX DISCHARGE INFORMATION TO [facility] AT [phone]. [facility] WILL NOT DO ANY IV MEDICATIONS IN THE HOME. Maikel Torres, CASE MANAGEMENT DCP- Discharge Planning Updated by [id number]: Indigo Meier on 03/23/19 1:[address] CM NOTIFIED THAT PATIENT WAS TO LOW FUNCTIONING FOR INPATIENT REHAB. CM WILL CONTINUE FOLLOW AND ASSIST NEEDED WITH DISCHARGE PLANNING NEEDED. DCP- Discharge Planning Updated by [id number]: Maikel Torres on 03/17/19 11:[address] Patient Name: YUKI ESPINOZA Encounter No: [id number] : 1960 Primary Insurance: [employer] MEDICARE ADV Anticipated DC Date: Planned Disposition: Home with Home Health External Planned Provider: [facility] DCP follow-up note: CM PARTICIPATED IN MULTIDICIPLINARY TEAM MEETING, INFORMED THAT HOME HEALTH MUST BE INFORMED OF PT'S POSITIVE URINE CULTURE FOR MDR. CM CALLED AND SPOKE TO PRAVEEN AT [facility], , NOTIFIED OF MDR IN URINE; PRAVEEN REPORTS PT HAS FREQUENT UTI'S AND HOME IS NOT SANITARY ENVIRONMENT. THEY WILL ACCEPT BACK FOR HOME HEALTH BUT WILL NOT DO ANY IV ANTIBIOTICS IN THE HOME DUE TO HOME CONDITION. CM FAXED HOSPITAL UPDATE TO [facility] AT [phone]. FOR RESUMPTION OF HOME HEALTH, CALL [facility], ; FAX DISCHARGE INFORMATION TO [facility] AT [phone]. [facility] WILL NOT DO ANY IV MEDICATIONS IN THE HOME. Maikel Torres, CASE MANAGEMENT DCP- Discharge Planning Updated by [id number]: Maikel Torres on 03/14/19 4:[address] Patient Name: YUKI ESPINOZA Admission Status: ER Accout number: [id number] Admission Date: 03-10-2019 : 1960 Admission Diagnosis: Attending: FIGUEROA OTERO Current LOS: 4 Anticipated DC Date: Planned Disposition: Home with Home Health Primary Insurance: [employer] MEDICARE ADV PLANNED EXTERNAL PROVIDER: [facility] Discharge Planning Comments: CM MET WITH PT'S SIGNIFICANT OTHER, DO MARS, IN ROOM TO DISCUSS DISCHARGE PLANNING AND NEEDS. DO REPORTS BEING PT'S POWER OF WET ROASTER. PT LIVES WITH HER AND IS TOTALLY DEPENDENT EXCEPT FOR EATING. PT HAS ALL NEEDED MEDICAL EQUIPMENT AT HOME WITH NO PREFERRED MEDICAL EQUIPMENT PROVIDER. PT HAS HOME HEALTH FOR NURSING AND 30 HOURS OF PRIVATE DUTY CARE WEEKLY. PT ALSO HAS HOUSECALLS THEY ARE NOT ABLE TO TRANSPORT PT TO AND FROM DOCTOR APPOINTMENTS. CM DISCUSSED AVAILABILITY OF HOME HEALTH, REHAB SERVICES AND MEDICAL EQUIPMENT. DO REPORTS PT WILL RETURN HOME AT DISCHARGE WITH [facility] RESUMPTION AND THEY WOULD LIKE PHYSICAL THERAPY AT HOME WITH HOME HEALTH AGAIN. PT TO TRANSPORT VIA AMBULANCE. IMPORTANT MESSAGE FROM MEDICARE PROVIDED AND EXPLAINED. CHOICE SIGNED FOR [facility]. FOR DISCHARGE HOME AND RESUMPTION OF HOME HEALTH SERVICES, NOTIFY [facility] AT [phone], FAX DISCHARGE INFORMATION TO [facility] AT [phone]. PT TO TRANSPORT HOME VIA AMBULANCE. X Ray Technologist: Maikel Torres DCPIA - Discharge Planning Initial Assessment Updated by [id number]: Maikel Torres on 03/14/19 4:56 pm * How many steps to enter\exit or inside your home? NONE * PCP DR. ALDRICH * Pharmacy [facility] [address] * Preadmission Environment Home with Family * ADLs Partial Dependent * Partial ADLs (Assistance needed) Ambulation Bathing Dressing Medication Management Toileting Transfers * Equipment Bedside Commode [facility] Bed Nazia Lift Rolling Walker Shower Chair Trapeze Wheelchair * Other Equipment NO MEDICAL EQUIOPMENT PROVIDER PREFERENCE * List name and contact numbers for known caregivers / representatives who currently or will assist patient after discharge: DO MARS, SIGNIFICANT OTHER / LEANA, * Verbal permission to speak to the caregivers and representatives has been obtained from the patient. N/A * Community resources currently utilized Home Health Private Duty Care * Please name any agencies selected above. HOME HEALTH NURSING AND AIDE - [facility] PRIVATE DUTY CAREGIVER - [facility]- 30 HOURS PER WEEK * Additional services required to return to the preadmission environment? No * Can the patient safely return to the preadmission environment? Yes * Has this patient been hospitalized within the prior 30 days at any hospital? Yes Coverage Notice Reviewer: [id number] Marcelino Torres Notice Issued Date-Time: 03/14/2019 15:15 Notice Type: IM Discharge Notice Notice Delivered To: Family Member Relationship to Patient: Power of Car Repairer Case Finisher Name: DO MARS Delivery Method: HAND - Hand Delivered Amberly Days: Prior Verbal Notification: Recipient Understood Notice: Yes Recipient Signature: Yes Med Rec Note Co-signed by Attending: Coverage Notice Comment: Reviewer: [id number] Marcelino Torres Notice Issued Date-Time: 03/14/2019 15:15 Notice Type: Patient Choice Letter Notice Delivered To: Family Member Relationship to Patient: Power of Car Repairer Case Finisher Name: DO MARS Delivery Method: HAND - Hand Delivered Amberly Days: Prior Verbal Notification: Recipient Understood Notice: Yes Recipient Signature: Yes Med Rec Note Co-signed by Attending: Coverage Notice Comment: [facility] Reviewer: [id number] - Maikel Brian Notice Issued Date-Time: 03/24/2019 8:50 Notice Type: IM Discharge Notice Notice Delivered To: Family Member Relationship to Patient: Other Relationship Case Finisher Name: DO MARS Delivery Method: PHONE - Phone Amberly Days: Prior Verbal Notification: Recipient Understood Notice: Yes Recipient Signature: Med Rec Note Co-signed by Attending: Coverage Notice Comment: Last DP export: 03/23/19 1:39 p Patient Name: YUKI ESPINOZA Page [phone] at 1228 All edits/amendments must be made on the electronic document DICTATION DATE: 03/24/191227 CRISIS INTERVENTION COUNSELOR: SHAHANA 03/24/19 1228 RPT#: [id number] DC DATE: STATUS: ADM IN [facility] [address] [place] [address] END OF REPORT
[2019-03-24 12:30] VITALS: BP 132/84
[2019-03-24 16:30] VITALS: BP 128/72
--- NOTE | 2019-03-24 17:07 | NUR ---
I have reviewed this patient and I concur with the Shift Assessment completed by the Licensed Practical Nurse today this shift
[2019-03-24 18:47] LABS: APPEARANCE HAZY (CLEAR); BILIRUBIN NEGATIVE (NEGATIVE); COLOR YELLOW (YELLOW); GLUCOSE NEGATIVE (NEGATIVE); KETONE SMALL mg/dL (NEGATIVE); NITRITE POSITIVE (NEGATIVE); PROTEIN 1+ mg/dL (NEGATIVE); SPECIFIC GRAVITY 1.015 (1.005-1.020); UROBILINOGEN NORMAL (NORMAL)
[2019-03-24 18:49] LABS: RED CELLS - URINE 0-5 /hpf (0-5)
[2019-03-24 18:50] LABS: BACTERIA MODERATE /hpf (NONE SEEN); GRANULAR CAST 0-5 /lpf (NONE SEEN); HYALINE CAST OCC /lpf (NONE SEEN)
--- NOTE | 2019-03-24 19:50 | NUR ---
OT NOTE: PT COMPLETED FACE WASHING WITH SET UP. PT COMPLETED UE AROM EXS. THANK YOU, MICHELLE PATTERSON
[2019-03-24 20:00] VITALS: BP 112/68
--- NOTE | 2019-03-24 20:08 | NUR ---
PT RESTING IN BED WITH EYES CLOSED. NO S/S OF DISTRESS. PT BED LOW AND CALL LIGHT IN REACH. NAME AND DATE PLACED ON BOARD. DOBUTAMINE INFUSING ORDERED. PT WILL CALL FOR ASSIST WHEN NEEDED. WILL CPOC
[2019-03-25] VITALS: BP 122/76
--- NOTE | 2019-03-25 03:05 | NUR ---
PT LAYING IN BED. EYES OPEN. DENIES ANY NEEDS. NO S/S OF DISTRESS. RESP EVEN AND UNLABORED. DOBUTAMINE INFUSING ORDERED. REPOSITIONED. WILL CPOC
[2019-03-25 04:00] VITALS: BP 122/75
[2019-03-25 05:17] LABS: INR 1.55 (0.85-1.17)
[2019-03-25 05:26] LABS: ANION GAP 13.4 mmol/L (8-16); BILIRUBIN - TOTAL 0.99 mg/dL (0.2-1.3); CALCIUM 7.4 mg/dL (8.5-10.1); CARBON DIOXIDE 20.1 mmol/L (21.0-32.0); CREATININE - SERUM 1.7 mg/dL (0.6-1.3); MAGNESIUM - SERUM 1.7 mg/dL (1.8-2.4); PHOSPHOROUS 2.5 mg/dL (2.5-4.9); POTASSIUM - SERUM 3.5 mmol/L (3.5-5.1); PROTEIN - SERUM 5.7 g/dL (6.4-8.2)
--- NOTE | 2019-03-25 07:14 | NUR ---
PT FSBS IS 79 JUICE PROVIDED. PT MAG IS LOW 1.7 400MG GIVEN WITH MORNING CARAFATE. PT VERBALIZED UNDERSTANDING OF ELECT. PROTOCOL. DENIES ANY OTHER NEEDS. WILL CPOC
--- NOTE | 2019-03-25 07:40 | NUR ---
ALERT, GARBLED SPEECH.PT IS ON CONTACT ISOLATION. TELEMERTY SHOWS CAF 62.PT ON A 1ST STEP MATTRESS. RIGHT WRIST IV WITH DOBUTAMINE AT 10.2CC HRLY, NS AT 10 CC HR.LEFT HAND CONTRACTED. STAHL CATH TO BEDSIDE DRAINAGE. SCROTUM SWOLLEN. LEFT GREAT TOE HAS ASORE TO THE END OF THE TOE. LEFT HEEL WITH A RAW AREA, HEEL PROCTERS ON. NO NEEDS NOTED. SR UP WITH CALL LIGHT INREACH
[2019-03-25 07:43] LABS: BASOPHILS 0.2 % (0-2); EOSINOPHILS 2.7 % (0-7); HEMATOCRIT 26.9 % (42.0-54.0); HEMOGLOBIN 8.9 g/dL (13.5-17.5); IMMATURE GRANULOCYTES 0.2 % (0-5); LYMPHOCYTES 17.5 % (15-50); MCH 29.9 pg (26.0-34.0); MCHC 33.1 g/dL (31.0-37.0); MCV 90.3 fL (80.0-100.0); MEAN PLATELET VOLUME 10.9 fL (7.4-10.4); MONOCYTES 9.3 % (2-11); NEUTROPHILS 70.1 % (40-80); PLATELET COUNT 122 10x3/uL (130-400); RBC 2.98 10x6/uL (4.20-6.10); WBC 9.4 10x3/uL (4.8-10.8)
--- NOTE | 2019-03-25 09:00 | NUR ---
PT REFUSED TO TAKE MEICATIONS AFTER THEY WERE SCANED. WILL TRY LATER
[2019-03-25 09:50] VITALS: BP 124/76
--- NOTE | 2019-03-25 10:27 | NUR ---
OT NOTE: PT VERY FRUSTRATED THIS AM. ATTEMPTING TO TELL THERAPIST SOMETHING BUT I WAS UNABLE TO DECIPHER WHAT HE WAS SAYING. FINALLY GOT PT TO ATTEND TO BREAKFAST TRAY AND HE WAS ABLE TO EAT 100% OF CREAM OF WHEAT AND DRANK HALF OF HIS MILK. PROVIDED WASH CLOTH TO WASH HIS FACE; BED MOB WITH MAX ASSIST FOR PRESSURE RELIEF. GOLDIE MCDONALD, OTR/L
--- NOTE | 2019-03-25 11:33 | NUR ---
I have reviewed this patient and I concur with the Shift Assessment completed by the Licensed Practical Nurse today this shift.
[2019-03-25 12:30] VITALS: BP 121/76
--- NOTE | 2019-03-25 12:45 | MORECARE ---
CASE MANAGEMENT DISCHARGE SUMMARY PATIENT: YUKI ESPINOZA UNIT: [id number] ADM DATE: 03/10/19 AGE: 58 : 62 SEX: M ROOM/BED: D.212 AUTHOR: SILVIA,DOC PHYSICIAN: REFERRING PHYSICIAN: FIGUEROA OTERO MD DATE OF SERVICE: 03/25/19 Discharge Plan Patient Name: YUKI ESPINOZA Facility: [facility]:[place] : 1960 Planned Disposition: Home with Home Health Anticipated Discharge Date: Discharge Date: Expected LOS: Initial Reviewer: [id number] Initial Review Date: 03/12/2019 Generated: 03/25/19 1:45 pm Comments DCP- Discharge Planning Updated by [id number]: Maikel Torres on 03/25/19 11:[address] Patient Name: YUKI ESPINOZA Encounter No: [id number] : 1960 Primary Insurance: [employer] MEDICARE ADV Anticipated DC Date: Planned Disposition: Home with Home Health External Planned Provider: [facility] DCP follow-up note: MAIRA RECEIVED ORDER FOR DISCHARGE PLANNING. MAIRA SPOKE TO DOCRISTOPHER MARS [facility] OTHER, ; DO REPORTS HAVING ALL NEEDED MEDICAL EQUIPMENT AT HOME AND SHE REPORTS BEING THE ONE THAT TOLD THE HOSPITAL PT IS TOTAL CARE PATIENT, SO SHE IS AWARE. MAIRA HAS CALLED [facility], WAS INFORMED THAT PT DOES NOT QUALIFY FOR AIR MATTRESS FOR INSURANCE TO PAY PT WOULD HAVE TO HAVE MULTIPLE STAGE 2 OR GREATER WOUNDS TO BACK OR BUTTOCKS. PT'S INSURANCE WILL NOT PAY FOR GEL OVERLAY UNTIL THE YEAR 2120. PRIVATE PURCHASE OF ALTERNATING AIR MATTRESS IS $4000 AND GEL OVERLAY MATTRESS$250. MAIRA NOTIFIED DO WHO REPORTS FINDING AN AIR MATTRESS ON [facility] THAT IS SIMILAR TO WHAT PT IS USING IN HOSPITAL FOR $80 AND SHE WILL LOOK INTO FUNDING FOR THE PURCHASE. DO DENIES NEEDS AT THIS TIME. FOR RESUMPTION OF HOME HEALTH, CALL [facility], ; FAX DISCHARGE INFORMATION TO [facility] AT [phone]. [facility] WILL NOT DO ANY IV MEDICATIONS IN THE HOME. PT TO TRANSPORT HOME VIA AMBULANCE. Maikel Brian, CASE MANAGEMENT DCP- Discharge Planning Updated by [id number]: Maikel Torres on 03/24/19 11:[address] Patient Name: YUKI ESPINOZA Encounter No: [id number] : 1960 Primary Insurance: [employer] MEDICARE ADV Anticipated DC Date: Planned Disposition: Home with Home Health External Planned Provider: [facility] DCP follow-up note: CM RECEIVED ORDER FOR INPATIENT REHAB PRESCREENING. CM SPOKE TO ALLISON KAPOOR, ; DO REPORTS PT IS NOT GOING TO REHAB OR RESIDENTIAL FACILITY. SHE WANTS TO TAKE PT HOME WITH [facility] RESUMPTION AND CAREGIVER SERVICES RESUMPTION THROUGH MEDICAID. CM DISCUSSED IMPORTANT MESSAGE FROM MEDICARE, DO REPORTS UNDERSTANDING, ORIGINAL LEFT IN PT'S ROOM FOR DO. CM SPOKE TO ADRIAN ROCA WHO INFORMED CM THAT PT WILL STAY TO COMPLETE IV ANTIBIOTICS. CM HAS PREVIOUSLY SPOKEN TO [facility] WHO WILL NOT DO IV ANTIBIOTICS AT HOME DUE TO PT'S HOME CONDITION. FOR RESUMPTION OF HOME HEALTH, CALL [facility], ; FAX DISCHARGE INFORMATION TO [facility] AT [phone]. [facility] WILL NOT DO ANY IV MEDICATIONS IN THE HOME. Maikel Torres, CASE MANAGEMENT DCP- Discharge Planning Updated by [id number]: Indigo Meier on 03/23/19 1:[address] CM NOTIFIED THAT PATIENT WAS TO LOW FUNCTIONING FOR INPATIENT REHAB. CM WILL CONTINUE FOLLOW AND ASSIST NEEDED WITH DISCHARGE PLANNING NEEDED. DCP- Discharge Planning Updated by [id number]: Maikel Torres on 03/17/19 11:[address] Patient Name: YUKI ESPINOZA Encounter No: [id number] : 1960 Primary Insurance: [employer] MEDICARE ADV Anticipated DC Date: Planned Disposition: Home with Home Health External Planned Provider: [facility] DCP follow-up note: CM PARTICIPATED IN MULTIDICIPLINARY TEAM MEETING, INFORMED THAT HOME HEALTH MUST BE INFORMED OF PT'S POSITIVE URINE CULTURE FOR MDR. CM CALLED AND SPOKE TO PRAVEEN AT [facility], , NOTIFIED OF MDR IN URINE; PRAVEEN REPORTS PT HAS FREQUENT UTI'S AND HOME IS NOT SANITARY ENVIRONMENT. THEY WILL ACCEPT BACK FOR HOME HEALTH BUT WILL NOT DO ANY IV ANTIBIOTICS IN THE HOME DUE TO HOME CONDITION. MAIRA FAXED HOSPITAL UPDATE TO [facility] AT [phone]. FOR RESUMPTION OF HOME HEALTH, CALL [facility], ; FAX DISCHARGE INFORMATION TO [facility] AT [phone]. [facility] WILL NOT DO ANY IV MEDICATIONS IN THE HOME. Maikel Torres, CASE MANAGEMENT DCP- Discharge Planning Updated by [id number]: Maikel Torres on 03/14/19 4:[address] Patient Name: YUKI ESPINOZA Admission Status: ER Accout number: [id number] Admission Date: 03-10-2019 : 1960 Admission Diagnosis: Attending: FIGUEROA OETRO Current LOS: 4 Anticipated DC Date: Planned Disposition: Home with Home Health Primary Insurance: [employer] MEDICARE ADV PLANNED EXTERNAL PROVIDER: [facility] Discharge Planning Comments: CM MET WITH PT'S SIGNIFICANT OTHER, DO MARS, IN ROOM TO DISCUSS DISCHARGE PLANNING AND NEEDS. 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 PT LIVES WITH HER AND IS TOTALLY DEPENDENT EXCEPT FOR EATING. PT HAS ALL NEEDED MEDICAL EQUIPMENT AT HOME WITH NO PREFERRED MEDICAL EQUIPMENT PROVIDER. PT HAS HOME HEALTH FOR NURSING AND 30 HOURS OF PRIVATE DUTY CARE WEEKLY. PT ALSO HAS HOUSECALLS THEY ARE NOT ABLE TO TRANSPORT PT TO AND FROM DOCTOR APPOINTMENTS. CM DISCUSSED AVAILABILITY OF HOME HEALTH, REHAB SERVICES AND MEDICAL EQUIPMENT. DO REPORTS PT WILL RETURN HOME AT DISCHARGE WITH [facility] RESUMPTION AND THEY WOULD LIKE PHYSICAL THERAPY AT HOME WITH HOME HEALTH AGAIN. PT TO TRANSPORT VIA AMBULANCE. IMPORTANT MESSAGE FROM MEDICARE PROVIDED AND EXPLAINED. CHOICE SIGNED FOR [facility]. FOR DISCHARGE HOME AND RESUMPTION OF HOME HEALTH SERVICES, NOTIFY [facility] AT [phone], FAX DISCHARGE INFORMATION TO [facility] AT [phone]. PT TO TRANSPORT HOME VIA AMBULANCE. Intranet Specialist: Maikel Torres DCPIA - Discharge Planning Initial Assessment Updated by [id number]: Maikel Torres on 03/14/19 4:56 pm * How many steps to enter\exit or inside your home? NONE * PCP DR. ALDRICH * Pharmacy [facility] [address] * Preadmission Environment Home with Family * ADLs Partial Dependent * Partial ADLs (Assistance needed) Ambulation Bathing Dressing Medication Management Toileting Transfers * Equipment Bedside Commode Hospital Bed Nazia Lift Rolling Walker Shower Chair Trapeze Wheelchair * Other Equipment NO MEDICAL EQUIOPMENT PROVIDER PREFERENCE * List name and contact numbers for known caregivers / representatives who currently or will assist patient after discharge: DO MARS, SIGNIFICANT OTHER / LEANA, * Verbal permission to speak to the caregivers and representatives has been obtained from the patient. N/A * Community resources currently utilized Home Health Private Duty Care * Please name any agencies selected above. HOME HEALTH NURSING AND AIDE - [facility] HOME HEALTH PRIVATE DUTY CAREGIVER - [facility]- 30 HOURS PER WEEK * Additional services required to return to the preadmission environment? No * Can the patient safely return to the preadmission environment? Yes * Has this patient been hospitalized within the prior 30 days at any hospital? Yes Coverage Notice Reviewer: PORFIRIO Torres Notice Issued Date-Time: 03/14/2019 15:15 Notice Type: IM Discharge Notice Notice Delivered To: Family Member Relationship to Patient: Power of Tube Inspector Kiln Firer Helper Name: DO MARS Delivery Method: HAND - Hand Delivered Amberly Days: Prior Verbal Notification: Recipient Understood Notice: Yes Recipient Signature: Yes Med Rec Note Co-signed by Attending: Coverage Notice Comment: Reviewer: PORFIRIO Torres Notice Issued Date-Time: 03/14/2019 15:15 Notice Type: Patient Choice Letter Notice Delivered To: Family Member Relationship to Patient: Power of Tube Inspector Kiln Firer Helper Name: DO MARS Delivery Method: HAND - Hand Delivered Amberly Days: Prior Verbal Notification: Recipient Understood Notice: Yes Recipient Signature: Yes Med Rec Note Co-signed by Attending: Coverage Notice Comment: [facility] Reviewer: PORFIRIO Torres Notice Issued Date-Time: 03/24/2019 8:50 Notice Type: IM Discharge Notice Notice Delivered To: Family Member Relationship to Patient: Other Relationship Kiln Firer Helper Name: DO MARS Delivery Method: PHONE - Phone Amberly Days: Prior Verbal Notification: Recipient Understood Notice: Yes Recipient Signature: Med Rec Note Co-signed by Attending: Coverage Notice Comment: Last DP export: 03/24/19 11:28 am Patient Name: YUKI ESPINOZA Page [id number] at 1245 All edits/amendments must be made on the electronic document DICTATION DATE: 03/25/19 1244 SENIOR INFORMATION SECURITY ARCHITECT: SHAHANA 03/25/19 1244 RPT#: [id number] DC DATE: STATUS: ADM IN [facility] [address] [place] [address] END OF REPORT
--- NOTE | 2019-03-25 13:08 | NUR ---
Nutrition Follow-up: Pt tolerating PO intake. Per OT, pt ate 100% cream of wheat and drank 50% of milk this AM. Noted diarrhea yesterday. Working with ST. Diet: Full liquid; Ensure with meals Wt: 280# Labs noted: Alb 2.0, Mg 1.7, Ca 7.4 Meds noted: Lasix, Carafate, MagOx Rec continue current diet as tolerated. Encourage PO intake. RD following.
--- NOTE | 2019-03-25 15:09 | NUR ---
OT NOTE: PT COMPLETED GROOMING TASK WITH SET UP. THANK YOU, MICHELLE PATTERSON
[2019-03-25 16:34] VITALS: BP 120/76
--- NOTE | 2019-03-25 18:45 | NUR ---
STILL REFUSING MEDS AND BLOOD SUGARS. LYING QUIETLY WITH EYES CLOSED.
--- NOTE | 2019-03-25 19:10 | NUR ---
PT LAYING IN BED WITH EYES CLOSED. ISOLATION PRECAUTIONS FOLLOWED. NAME AND DATE PLACED ON BOARD. PT HAS NO S/S OF DISTRESS. RESP EVEN AND UNLABORED. BED LOW AND CALL LIGHT IN REACH. STAHL NOTED WITH YELLOW URINE. WILL CPOC
[2019-03-25 20:00] VITALS: BP 111/69
--- NOTE | 2019-03-25 20:26 | NUR ---
PT COMPLAINS OF PAIN. DILAUDID GIVEN AND REPOSITIONED. NIGHT MEDICATIONS GIVEN. PT VERBALIZED UNDERSTANDING. PT HAS NO S/S OF DISTRESS. BED LOW AND CALL LIGHT IN REACH. WILL CPOC
--- NOTE | 2019-03-25 20:30 | NUR ---
SPOKE WITH [facility] AND OBTAINED A ONE TIME ORDER FOR NORCO STATES GIVE PT NORCO AND ATTEMPT IV AGAIN.
--- NOTE | 2019-03-25 20:53 | NUR ---
PT RIGHT WRIST IV INDURATION. NOT PATENT. REMOVED IV WITH CATH INTACT. WHEN ATTEMPTING NEW IV PT YELLED OUT AND SAID NO. PT REFUSING NEW IV PLACEMENT. PT ATE GRAMCRACKER AND PNT BUTTER AND DRANK APPLE JUICE. NO S/S OF DISTRESS. BED LOW AND CALL LIGHT IN REACH. WILL CPOC
--- NOTE | 2019-03-25 23:04 | NUR ---
PT REFUSING AN IV TO BE PLACED. STATES NO WHEN OFFERED A NORCO FOR PAIN. PT WAVING NURSE OUT OF ROOM. PT DENIES ANY NEEDS. NOURISHMENT IN REACH. NO S/S OF DISTRESS. WILL CPOC
[2019-03-26] VITALS: BP 118/72
--- NOTE | 2019-03-26 02:55 | NUR ---
PT LAYING IN BED, EYES CLOSED NO S/S OF DISTRESS. 1ST STEP OVERLAY IN USE. RESP EVEN AND UNLABORED. BED LOW AND CALL LIGHT IN REACH. WILL CPOC
[2019-03-26 04:00] VITALS: BP 106/68
--- NOTE | 2019-03-26 06:42 | NUR ---
PT GIVEN A COMPLETE BED BATH, STAHL CARE PROVIDED AND STAT LOCK REPLACED. PT HAS CRUST ON STAHL TUBING AND EDEMA IN SCROTUM. TUBE NOW CLEAN, NOTED THAT SYSTEM IS OPEN, ELLEN APPLIED TO SCROTUM AND IN GROIN DUE TO REDNESS AND EXCORIATION. EDEMA NOTED POOLED TO BACK OF BODY. PITTING +2 +3 IN LOWER EXTREM. GENERALIZED IN BACK AND COCCYX. CLEANED BUTTOCK AND PT HAD LIQUID STOOL, EXCORIATION NOTED ON COCCYX AND LOWER SCROTUM. ELLEN APPLIED. INCISIONS NOTED ON ABDOMEN FROM LAP SRAVANTHI LAST WEEK. LEFT HEEL DRSG CHANGED AND NEW DRSG APPLIED, OPEN BLISTER NOTED. SCAB ON LEFT GREAT TOE. HEEL PROTECTORS ON. PT DRINKING A MILK AND EATING 2 PACKS OF GRAMCRACKERS AND PEANUT BUTTER. APPLE JUICE AND WATER IN REACH. CALL LIGHT FIXED AND IN REACH. PT DENIES ANY NEEDS. NO S/S OF DISTRESS. BED LOW AND CALL LIGHT IN REACH. WILL CPOC
--- NOTE | 2019-03-26 07:20 | NUR ---
RECEIVED REPORT. ASSUMED CARE OF PATIENT. CALL LIGHT WITHIN REACH. PATIENT WITH EYES OPEN. NO DISTRESS. REMAINS IN ISOLATION FOR PUEDOMONAS IN URINE.
[2019-03-26 08:28] VITALS: BP 133/80
--- NOTE | 2019-03-26 09:09 | NUR ---
PATIENT IS STILL REFUSING IV PLACEMENT. EXPLAINED PATIENT IV MEDICATIONS ARE NEEDED TO IMPROVE HIS CONDITION TO HELP GET HIM HOME AND HE CONTINUES TO REFUSE IV PLACEMENT.
--- NOTE | 2019-03-26 10:16 | NUR ---
SPOKE WITH DAWNA AND INFORMED HER OF THE IV SITUATION. WE WILL CONTINUE TO TRY AND PLACE IV THROUGHOUT THE DAY AND SWITCH MANY MEDS TO ORAL POSSIBLE. THANKED DAWNA.
--- NOTE | 2019-03-26 11:21 | NUR ---
FSBS 127. NO INSULIN COVERAGE PER SLIDING SCALE.
[2019-03-26 11:35] VITALS: BP 121/69
--- NOTE | 2019-03-26 15:39 | NUR ---
RESTING IN BED WITH EYES CLOSED. EASILY AROUSED. RESP EVEN AND UNLABORED. NO DISTRESS. CALL LIGHT WITHIN REACH.
[2019-03-26 16:04] VITALS: BP 124/71
--- NOTE | 2019-03-26 17:09 | NUR ---
FSBS 133. NO INSULIN PER SLIDING SCALE.
--- NOTE | 2019-03-26 19:01 | NUR ---
RECIEVED UP IN BED WITH EYES OPEN. ALERT AND ORIENTED TO NAME. UNABLE TO ASSESS TIME PLACE AND SITUATION. HAS WORD SALAD AND UNABLE TO POINT AT PICTURE BOARDS APPROPRIATLY. NO IV ACCESS. DSG TO LEFT HEEL. SMALL SCAB TO LEFT BIG TOE. BUTTOCKS EXCORIATED. TESTES SWOLLEN. F/C INTACT WITH CLEAR YELLOW URINE DRAINING TO BEDSIDE DRAINAGE BAG. REMAIN ON CONTACT ISOLATION AND 1ST STEP OVERLAY MATTRESSS IN PLACE. TELEMETRY IN PLACE. NO S/S OF DISTRESS OBSERVED.
[2019-03-26 20:00] VITALS: BP 121/70
--- NOTE | 2019-03-26 21:11 | NUR ---
REFUSED HS MEDICATIONS. ATTEMPTS X2 TO GET PT TO TAKE MEDICATIONS AND ALSO HAD 2 OTHER NURSES TRY TO GIVE HIM HIS MEDICATION. REPEATING "ONE MORE" OVER AND OVER. UNABLE TO UNDERSTAND WHAT HE WANTS.
[2019-03-27] VITALS: BP 121/71
[2019-03-27 04:00] VITALS: BP 128/84
--- NOTE | 2019-03-27 05:48 | NUR ---
REFUSED AM MEDICATIONS AND LABS.
--- NOTE | 2019-03-27 07:10 | NUR ---
RECEIVED REPORT. ASSUMED CARE OF PATIENT. CALL LIGHT WITHIN REACH. RESTING WITH EYES CLOSED. RESP EVEN AND UNLABORED. NO DISTRESS. 1ST STEP OVERLAY PATENT. REMAINS IN CONTACT ISOLATION FOR PSEUDOMONAS IN URINE.
[2019-03-27 08:32] VITALS: BP 122/70
[2019-03-27] MEDS ORDERED: PROTONIX40 MG PO (10:04)
[2019-03-27] MEDS ORDERED: CARAFATE1 G PO (10:04)
--- NOTE | 2019-03-27 11:31 | NUR ---
CALLED AND SPOKE TO DO AND SHE WILL BE HOME WAITING FOR HIM. DO ASKED THAT I CALL HER BACK WHEN CRISTIANE ROCA LEAVES THE HOSPITAL WITH THE PATIETN SO SHE CAN PUT THE DOGS UP. SHE THANKED THIS TIRE SORTER FOR CALLING.
--- NOTE | 2019-03-27 12:50 | NUR ---
[facility] HERE TO TRANSPORT PATIENT.
--- NOTE | 2019-03-27 12:52 | NUR ---
PATIENT LEFT UNIT VIA [facility] WITH 3 ATTENDANTS. PATIENT IN STABLE CONDITION UPON LEAVING UNIT AND SMILING AT THE STAFF. CALLED AND SPOKE WITH DO AT THIS TIME TO LET HER KNOW THAT PATIENT HAS JUST LEFT THE UNIT. DO THANKED THIS COMPANY DOCTOR.
[2019-03-27 13:05] VITALS: BP 151/76
--- NOTE | 2019-03-27 13:51 | MORECARE ---
CASE MANAGEMENT DISCHARGE SUMMARY PATIENT: YUKI ESPINOZA UNIT: [id number] ADM DATE: 03/10/19 AGE: 58 : 62 SEX: M ROOM/BED: D.2124 AUTHOR: SUYAPA VEGA PHYSICIAN: REFERRING PHYSICIAN: FIGUEROA OTERO MD DATE OF SERVICE: 03/27/19 Discharge Plan Patient Name: YUKI ESPINOZA Facility: [facility]:[place] : 1960 Planned Disposition: Home with Home Health Anticipated Discharge Date: Discharge Date: Expected LOS: Initial Reviewer: [id number] Initial Review Date: 03/12/2019 Generated: 03/27/19 2:51 pm Comments DCP- Discharge Planning Updated by [id number]: Tiffanie Dixon on 03/27/19 12:[address] Patient Name: YUKI ESPINOZA Admission Status: ER Accout number: [id number] Admission Date: 03-10-2019 : 1960 Admission Diagnosis:ACUTE CHOLECYSTITIS Attending: FIGUEROA OTERO Current LOS: 17 Anticipated DC Date: Planned Disposition: Home with Home Health Primary Insurance: [employer] MEDICARE ADV Discharge Planning Comments: PT DC HOME WITH HH THRU [facility]. DO NOTIFIED. WILL DC BY AMBULANCE. IMM VERBAL BY DO DUEÑAS [employer] Worker: Tiffanie Dixon DCP- Discharge Planning Updated by [email or web address]: Maikel Torres on 03/25/19 11:[address] Patient Name: YUKI ESPINOZA Encounter No: [id number] : 1960 Primary Insurance: WELLCARE MEDICARE ADV Anticipated DC Date: Planned Disposition: Home with Home Health External Planned Provider: [facility] DCP follow-up note: MAIRA RECEIVED ORDER FOR DISCHARGE PLANNING. CM SPOKE TO DO MARS DIANA OTHER, ; DO REPORTS HAVING ALL NEEDED MEDICAL EQUIPMENT AT HOME AND SHE REPORTS BEING THE ONE THAT TOLD THE HOSPITAL PT IS TOTAL CARE PATIENT, SO SHE IS AWARE. CM HAS CALLED [employer], WAS INFORMED THAT PT DOES NOT QUALIFY FOR AIR MATTRESS FOR INSURANCE TO PAY PT WOULD HAVE TO HAVE MULTIPLE STAGE 2 OR GREATER WOUNDS TO BACK OR BUTTOCKS. PT'S INSURANCE WILL NOT PAY FOR GEL OVERLAY UNTIL THE YEAR 2120. PRIVATE PURCHASE OF ALTERNATING AIR MATTRESS IS $4000 AND GEL OVERLAY MATTRESS$250. MAIRA NOTIFIED DO WHO REPORTS FINDING AN AIR MATTRESS ON [employer] THAT IS SIMILAR TO WHAT PT IS USING IN HOSPITAL FOR $80 AND SHE WILL LOOK INTO FUNDING FOR THE PURCHASE. DO DENIES NEEDS AT THIS TIME. FOR RESUMPTION OF HOME HEALTH, CALL [facility], ; FAX DISCHARGE INFORMATION TO [facility] AT [phone]. [facility] WILL NOT DO ANY IV MEDICATIONS IN THE HOME. PT TO TRANSPORT HOME VIA AMBULANCE. Maikel Torres, CASE MANAGEMENT DCP- Discharge Planning Updated by [id number]: Maikel Torres on 03/24/19 11:[address] Patient Name: YUKI ESPINOZA Encounter No: [id number] : 1960 Primary Insurance: [employer]DR [employer] MEDICARE ADV Anticipated DC Date: Planned Disposition: Home with Home Health External Planned Provider: [facility] DCP follow-up note: CM RECEIVED ORDER FOR INPATIENT REHAB PRESCREENING. MAIRA SPOKE TO ALLISON KAPOOR OTHER, ; DO REPORTS PT IS NOT GOING TO REHAB OR DETENTION FACILITY. SHE WANTS TO TAKE PT HOME WITH [facility] RESUMPTION AND CAREGIVER SERVICES RESUMPTION THROUGH MEDICAID. CM DISCUSSED IMPORTANT MESSAGE FROM MEDICARE, DO REPORTS UNDERSTANDING, ORIGINAL LEFT IN PT'S ROOM FOR DO. CM SPOKE TO ADRIAN ROCA WHO INFORMED CM THAT PT WILL STAY TO COMPLETE IV ANTIBIOTICS. MAIRA [facility]SLY SPO[facility] WHO WILL NOT DO IV ANTIBIOTICS AT HOME DUE TO PT'S HOME CONDITION. FOR RESUMPTION OF HOME HEALTH, CALL [facility], ; FAX DISCHARGE INFORMATION TO [facility] AT [phone]. [facility] WILL NOT DO ANY IV MEDICATIONS IN THE HOME. Maikel Torres, CASE MANAGEMENT DCP- Discharge Planning Updated by [id number]: Indigo Meier on 03/23/19 1:[address] CM NOTIFIED THAT PATIENT WAS TO LOW FUNCTIONING FOR INPATIENT REHAB. CM WILL CONTINUE FOLLOW AND ASSIST NEEDED WITH DISCHARGE PLANNING NEEDED. DCP- Discharge Planning Updated by [id number]: Maikel Torres on 03/17/19 11:[address] Patient Name: YUKI ESPINOZA Encounter No: [id number] : 1960 Primary Insurance: WELL[employer]ARE MEDICARE ADV Anticipated DC Date: Planned Disposition: Home with Home Health External Planned Provider: [facility] DCP follow-up note: CM PARTICIPATED IN MULTIDICIPLINARY TEAM MEETING, INFORMED THAT HOME HEALTH MUST BE INFORMED OF PT'S POSITIVE URINE CULTURE FOR MDR. CM CALLED AND SPOKE TO PRAVEEN AT [facility], , NOTIFIED OF MDR IN URINE; PRAVEEN REPORTS PT HAS FREQUENT UTI'S AND HOME IS NOT SANITARY ENVIRONMENT. THEY WILL ACCEPT BACK FOR HOME HEALTH BUT WILL NOT DO ANY IV ANTIBIOTICS IN THE HOME DUE TO HOME CONDITION. CM FAXED HOSPITAL UPDATE TO [facility] AT [phone]. FOR RESUMPTION OF HOME HEALTH, CALL [facility], ; FAX DISCHARGE INFORMATION TO [facility] AT [phone]. [facility] WILL NOT DO ANY IV MEDICATIONS IN THE HOME. Maikel Torres, CASE MANAGEMENT DCP- Discharge Planning Updated by [id number]: Maikel Torres on 03/14/19 4:[address] Patient Name: YUKI ESPINOZA Admission Status: ER Accout number: [id number] Admission Date: 03-10-2019 : 1960 Admission Diagnosis: Attending: FIGUEROA OTERO Current LOS: 4 Anticipated DC Date: Planned Disposition: Home with Home Health Primary Insurance: WELLC[employer] MEDICARE ADV PLANNED EXTERNAL PROVIDER: [facility] Discharge Planning Comments: CM MET WITH PT'S SIGNIFICANT OTHER, DO MARS, IN ROOM TO DISCUSS DISCHARGE PLANNING AND NEEDS. 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 PT LIVES WITH HER AND IS TOTALLY DEPENDENT EXCEPT FOR EATING. PT HAS ALL NEEDED MEDICAL EQUIPMENT AT HOME WITH NO PREFERRED MEDICAL EQUIPMENT PROVIDER. PT HAS HOME HEALTH FOR NURSING AND 30 HOURS OF PRIVATE DUTY CARE WEEKLY. PT ALSO HAS HOUSECALLS THEY ARE NOT ABLE TO TRANSPORT PT TO AND FROM DOCTOR APPOINTMENTS. CM DISCUSSED AVAILABILITY OF HOME HEALTH, REHAB SERVICES AND MEDICAL EQUIPMENT. DO REPORTS PT WILL RETURN HOME AT DISCHARGE WITH [facility] RESUMPTION AND THEY WOULD LIKE PHYSICAL THERAPY AT HOME WITH HOME HEALTH AGAIN. PT TO TRANSPORT VIA AMBULANCE. IMPORTANT MESSAGE FROM MEDICARE PROVIDED AND EXPLAINED. CHOICE SIGNED FOR [facility]. FOR DISCHARGE HOME AND RESUMPTION OF HOME HEALTH SERVICES, NOTIFY [facility] AT [phone], FAX DISCHARGE INFORMATION TO [facility] AT [phone]. PT TO TRANSPORT HOME VIA AMBULANCE. [employer] Worker: Maikel Torres DCPIA - Discharge Planning Initial Assessment Updated by PORFIRIO: Maikel Torres on 03/14/19 4:56 pm * How many steps to enter\exit or inside your home? NONE * PCP DR. ALDRICH * Pharmacy [facility] [address] * Preadmission Environment Home with Family * ADLs Partial Dependent * Partial ADLs (Assistance needed) Ambulation Bathing Dressing Medication Management Toileting Transfers * Equipment Bedside [facility] Bed Nazia Lift Rolling Walker Shower Chair Trapeze Wheelchair * Other Equipment NO MEDICAL EQUIOPMENT PROVIDER PREFERENCE * List name and contact numbers for known caregivers / representatives who currently or will assist patient after discharge: DO JERAD, SIGNIFICANT OTHER / POA, * Verbal permission to speak to the caregivers and representatives has been obtained from the patient. N/A * Community resources currently utilized Home Health Private Duty Care * Please name any agencies selected above. HOME HEALTH NURSING AND AIDE - [facility] PRIVATE DUTY CAREGIVER - [facility]- 30 HOURS PER WEEK * Additional services required to return to the preadmission environment? No * Can the patient safely return to the preadmission environment? Yes * Has this patient been hospitalized within the prior 30 days at any hospital? Yes Coverage Notice Reviewer: [id number] Torres Notice Issued Date-Time: 03/14/2019 15:15 Notice Type: IM Discharge Notice Notice Delivered To: Family Member Relationship to Patient: Power of Adult Basic Education Instructor Matching Machine Operator Name: DO MARS Delivery Method: HAND - Hand Delivered Amberly Days: Prior Verbal Notification: Recipient Understood Notice: Yes Recipient Signature: Yes Med Rec Note Co-signed by Attending: Coverage Notice Comment: Reviewer: [id number] Torres Notice Issued Date-Time: 03/14/2019 15:15 Notice Type: Patient Choice Letter Notice Delivered To: Family Member Relationship to Patient: Power of Adult Basic Education Instructor Matching Machine Operator Name: DO MARS Delivery Method: HAND - Hand Delivered Amberly Days: Prior Verbal Notification: Recipient Understood Notice: Yes Recipient Signature: Yes Med Rec Note Co-signed by Attending: Coverage Notice Comment: [facility] Reviewer: [id number] Torres Notice Issued Date-Time: 03/24/2019 8:50 Notice Type: IM Discharge Notice Notice Delivered To: Family Member Relationship to Patient: Other Relationship Matching Machine Operator Name: DO MARS Delivery Method: PHONE - Phone Amberly Days: Prior Verbal Notification: Recipient Understood Notice: Yes Recipient Signature: Med Rec Note Co-signed by Attending: Coverage Notice Comment: Reviewer: [id number] Marcelino Dixon Notice Issued Date-Time: 03/27/2019 10:15 Notice Type: IM Discharge Notice Notice Delivered To: Other Relationship to Patient: Power of Adult Basic Education Instructor Matching Machine Operator Name: do wong Delivery Method: PHONE - Phone Amberly Days: Prior Verbal Notification: Recipient Understood Notice: Yes Recipient Signature: Yes Med Rec Note Co-signed by Attending: Coverage Notice Comment: Last DP export: 03/25/19 11:45 am Patient Name: YUKI ESPINOZA Page 82495 at 1351 All edits/amendments must be made on the electronic document DICTATION DATE: 03/27/19 1350 LIMITED RADIOLOGY TECHNICIAN: SHAHANA 03/27/19 1350 RPT#: [id number] DC DATE: STATUS: ADM IN [facility] [address] [place] [address] END OF REPORT
--- NOTE | 2019-03-27 13:51 | NUR ---
OT NOTE: PT ATTEMPTING HARD TO TELL THERAPIST SOMETHING. UNABLE TO DICIPHER WHAT HE WAS SAYING. ATTEPTED TO PERFORM ADLS, HOWEVER, PT BECAME AGITATED AND UNCOOPERATIVE WITH THIS. ATTEMPTED TO REPOSITION PT ON SIDE AND HE DID NOT WANT THIS EITHER. PLANS FOR DC BACK HOME TODAY. GOLDIE MCDONALD, OTR/L
--- NOTE | 2019-03-28 08:36 | MORECARE ---
CASE MANAGEMENT DISCHARGE SUMMARY PATIENT: YUKI ESPINOZA UNIT: [id number] ADM DATE: 03/10/19 AGE: 58 : 62 SEX: M ROOM/BED: D.2124 AUTHOR: SUYAPA VEGA PHYSICIAN: REFERRING PHYSICIAN: FIGUEROA OTERO MD DATE OF SERVICE: 03/28/19 Discharge Plan Patient Name: YUKI ESPINOZA Facility: [facility]:[place] : 1960 Planned Disposition: Home with Home Health Anticipated Discharge Date: 03/27/19 Discharge Date: 03/27/2019 Expected LOS: 17 Initial Reviewer: [id number] Initial Review Date: 03/12/2019 Generated: 03/28/19 9:35 am Comments DCP- Discharge Planning Updated by [email or web address]: Tiffanie Dixon on 03/27/19 12:[address] Patient Name: YUKI ESPINOZA Admission Status: ER Accout number: [id number] Admission Date: 03-10-2019 : 1960 Admission Diagnosis:ACUTE CHOLECYSTITIS Attending: FIGUEROA OTERO Current LOS: 17 Anticipated DC Date: Planned Disposition: Home with Home Health Primary Insurance: [employer] MEDICARE ADV Discharge Planning Comments: PT DC HOME WITH HH THRU [facility]. [facility] NOTIFIED. WILL DC BY AMBULANCE. IMM VERBAL BY DO DUEÑAS Manager Heavy Duty: Tiffanie Dixon DCP- Discharge Planning Updated by [id number]: Maikel Torres on 03/25/19 11:[address] Patient Name: YUKI ESPINOZA Encounter No: [id number] : 1960 Primary Insurance: WE[employer] MEDICARE ADV Anticipated DC Date: Planned Disposition: Home with Home Health External Planned Provider: [facility] DCP follow-up note: CM RECEIVED ORDER FOR DISCHARGE PLANNING. CM SPOKE TO ALLISON KAPOOR, ; DO REPORTS HAVING ALL NEEDED MEDICAL EQUIPMENT AT HOME AND SHE REPORTS BEING THE ONE THAT TOLD THE HOSPITAL PT IS TOTAL CARE PATIENT, SO SHE IS AWARE. CM [facility], WAS INFORMED THAT PT DOES NOT QUALIFY FOR AIR MATTRESS FOR INSURANCE TO PAY PT WOULD HAVE TO HAVE MULTIPLE STAGE 2 OR GREATER WOUNDS TO BACK OR BUTTOCKS. PT'S INSURANCE WILL NOT PAY FOR GEL OVERLAY UNTIL THE YEAR 2120. PRIVATE PURCHASE OF ALTERNATING AIR MATTRESS IS $4000 AND GEL OVERLAY MATTRESS$250. MAIRA NOTIFIED DO WHO REPORTS FINDING AN AIR MATTRESS ON [facility] THAT IS SIMILAR TO WHAT PT IS USING IN HOSPITAL FOR $80 AND SHE WILL LOOK INTO FUNDING FOR THE PURCHASE. DO DENIES NEEDS AT THIS TIME. FOR RESUMPTION OF HOME HEALTH, CALL [facility], ; FAX DISCHARGE INFORMATION TO [facility] AT [phone]. [facility] WILL NOT DO ANY IV MEDICATIONS IN THE HOME. PT TO TRANSPORT HOME VIA AMBULANCE. Maikel Torres CASE MANAGEMENT DCP- Discharge Planning Updated by [id number]: Maikel Torres on 03/24/19 11:[address] Patient Name: YUKI ESPINOZA Encounter No: [id number] : 1960 Primary Insurance: [employer] MEDICARE ADV Anticipated DC Date: Planned Disposition: Home with Home Health External Planned Provider: [facility] DCP follow-up note: MAIRA RECEIVED ORDER FOR INPATIENT REHAB PRESCREENING. MAIRA SPOKE TO ALLISON KAPOOR OTHER, ; DO REPORTS PT IS NOT GOING TO REHAB OR ALF FACILITY. SHE WANTS TO TAKE PT HOME WITH [facility] HEALTH RESUMPTION AND CAREGIVER SERVICES RESUMPTION THROUGH MEDICAID. MAIRA DISCUSSED IMPORTANT MESSAGE FROM MEDICARE, DO REPORTS UNDERSTANDING, ORIGINAL LEFT IN PT'S ROOM FOR DO. CM SPOKE TO ADRIAN ROCA WHO INFORMED CM THAT PT WILL STAY TO COMPLETE IV ANTIBIOTICS. MAIRA HAS PREVIOUSLY SPOKEN TO HOME HEALTH WHO WILL NOT DO IV ANTIBIOTICS AT HOME DUE TO PT'S HOME CONDITION. FOR RESUMPTION OF HOME HEALTH, CALL [facility], ; FAX DISCHARGE INFORMATION TO [facility] AT [phone]. [facility] WILL NOT DO ANY IV MEDICATIONS IN THE HOME. Maikel Torres, CASE MANAGEMENT DCP- Discharge Planning Updated by [id number]: Indigo Meier on 03/23/19 1:[address] CM NOTIFIED THAT PATIENT WAS TO LOW FUNCTIONING FOR INPATIENT REHAB. CM WILL CONTINUE FOLLOW AND ASSIST NEEDED WITH DISCHARGE PLANNING NEEDED. DCP- Discharge Planning Updated by [id number]: Maikel Torres on 03/17/19 11:[address] Patient Name: YUKI ESPINOZA Encounter No: [id number] : 1960 Primary Insurance: WE[employer] MEDICARE ADV Anticipated DC Date: Planned Disposition: Home with Home Health External Planned Provider: [facility] DCP follow-up note: CM PARTICIPATED IN MULTIDICIPLINARY TEAM MEETING, INFORMED THAT HOME HEALTH MUST BE INFORMED OF PT'S POSITIVE URINE CULTURE FOR MDR. CM CALLED AND SPOKE TO PRAVEEN AT [facility], , NOTIFIED OF MDR IN URINE; PRAVEEN REPORTS PT HAS FREQUENT UTI'S AND HOME IS NOT SANITARY ENVIRONMENT. THEY WILL ACCEPT BACK FOR HOME HEALTH BUT WILL NOT DO ANY IV ANTIBIOTICS IN THE HOME DUE TO HOME CONDITION. CM FAXED HOSPITAL UPDATE TO [facility] AT [phone]. FOR RESUMPTION OF HOME HEALTH, CALL [facility], ; FAX DISCHARGE INFORMATION TO [facility] AT [phone]. [facility] WILL NOT DO ANY IV MEDICATIONS IN THE HOME. Maikel Torres, CASE MANAGEMENT DCP- Discharge Planning Updated by [id number]: Maikel Torres on 03/14/19 4:[address] Patient Name: YUKI ESPINOZA Admission Status: ER Accout number: [id number] Admission Date: 03-10-2019 : 1960 Admission Diagnosis: Attending: FIGUEROA OTERO Current LOS: 4 Anticipated DC Date: Planned Disposition: Home with Home Health Primary Insurance: WE[employer] MEDICARE ADV PLANNED EXTERNAL PROVIDER: [facility] Discharge Planning Comments: MAIRA MET WITH PT'S SIGNIFICANT OTHER, DO MARS, IN ROOM TO DISCUSS DISCHARGE PLANNING AND NEEDS. 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 PT LIVES WITH HER AND IS TOTALLY DEPENDENT EXCEPT FOR EATING. PT HAS ALL NEEDED MEDICAL EQUIPMENT AT HOME WITH NO PREFERRED MEDICAL EQUIPMENT PROVIDER. PT HAS HOME HEALTH FOR NURSING AND 30 HOURS OF PRIVATE DUTY CARE WEEKLY. PT ALSO HAS HOUSECALLS THEY ARE NOT ABLE TO TRANSPORT PT TO AND FROM DOCTOR APPOINTMENTS. CM DISCUSSED AVAILABILITY OF HOME HEALTH, REHAB SERVICES AND MEDICAL EQUIPMENT. DO REPORTS PT WILL RETURN HOME AT DISCHARGE WITH [facility] RESUMPTION AND THEY WOULD LIKE PHYSICAL THERAPY AT HOME WITH HOME HEALTH AGAIN. PT TO TRANSPORT VIA AMBULANCE. IMPORTANT MESSAGE FROM MEDICARE PROVIDED AND EXPLAINED. CHOICE SIGNED FOR [facility]. FOR DISCHARGE HOME AND RESUMPTION OF HOME HEALTH SERVICES, NOTIFY [facility] AT [phone], FAX DISCHARGE INFORMATION TO [facility] AT [phone]. PT TO TRANSPORT HOME VIA AMBULANCE. Manager Heavy Duty: Maikel Torres DCPIA - Discharge Planning Initial Assessment Updated by PORFIRIO: Maikel Torres on 03/14/19 4:56 pm * How many steps to enter\exit or inside your home? NONE * PCP DR. ALDRICH * Pharmacy [facility] [place] [address] * Preadmission Environment Home with Family * ADLs Partial Dependent * Partial ADLs (Assistance needed) Ambulation Bathing Dressing Medication Management Toileting Transfers * Equipment Bedside [facility] Bed Nazia Lift Rolling Walker Shower Chair Trapeze Wheelchair * Other Equipment NO MEDICAL EQUIOPMENT PROVIDER PREFERENCE * List name and contact numbers for known caregivers / representatives who currently or will assist patient after discharge: DO JERAD, SIGNIFICANT OTHER / POAsia, * Verbal permission to speak to the caregivers and representatives has been obtained from the patient. N/A * Community resources currently utilized Home Health Private Duty Care * Please name any agencies selected above. HOME HEALTH NURSING AND AIDE - [facility] HEALTH PRIVATE DUTY CAREGIVER - [facility]- 30 HOURS PER WEEK * Additional services required to return to the preadmission environment? No * Can the patient safely return to the preadmission environment? Yes * Has this patient been hospitalized within the prior 30 days at any hospital? Yes Coverage Notice Reviewer: [id number] Torres Notice Issued Date-Time: 03/14/2019 15:15 Notice Type: IM Discharge Notice Notice Delivered To: Family Member Relationship to Patient: Power of [employer] Resource Teacher Name: DO MARS Delivery Method: HAND - Hand Delivered Amberly Days: Prior Verbal Notification: Recipient Understood Notice: Yes Recipient Signature: Yes Med Rec Note Co-signed by Attending: Coverage Notice Comment: Reviewer: [id number] Torres Notice Issued Date-Time: 03/14/2019 15:15 Notice Type: Patient Choice Letter Notice Delivered To: Family Member Relationship to Patient: Power of [employer] Resource Teacher Name: DO MARS Delivery Method: HAND - Hand Delivered Amberly Days: Prior Verbal Notification: Recipient Understood Notice: Yes Recipient Signature: Yes Med Rec Note Co-signed by Attending: Coverage Notice Comment: [facility] Reviewer: [id number] Marcelino Torres Notice Issued Date-Time: 03/24/2019 8:50 Notice Type: IM Discharge Notice Notice Delivered To: Family Member Relationship to Patient: Other Relationship Middle School Resource Teacher Name: DO MARS Delivery Method: PHONE - Phone Amberly Days: Prior Verbal Notification: Recipient Understood Notice: Yes Recipient Signature: Med Rec Note Co-signed by Attending: Coverage Notice Comment: Reviewer: [id number] Marcelino Dixon Notice Issued Date-Time: 03/27/2019 10:15 Notice Type: IM Discharge Notice Notice Delivered To: Other Relationship to Patient: Power of [employer] Resource Teacher Name: do wong Delivery Method: PHONE - Phone Amberly Days: Prior Verbal Notification: Recipient Understood Notice: Yes Recipient Signature: Yes Med Rec Note Co-signed by Attending: Coverage Notice Comment: Last DP export: 03/27/19 12:51 pm Patient Name: YUKI ESPINOZA Page 92336 at 0836 All edits/amendments must be made on the electronic document DICTATION DATE: 03/28/19834 HISTORIC SITES SUPERVISOR: SHAHANA 03/28/1934 RPT#: [id number] DC DATE:03/27/19 STATUS: DIS IN [facility] [address] [place] [address] END OF REPORT
== END 2019-03-27 12:52 | disposition home health service (06) | DRG 417 ==
LOC: D.ER 23:26 → D.M2 03-10 02:52 → D.MS 03-10 02:52 → D.M2 03-11 13:12
PROVIDERS: Emergency Medicine; Family Medicine; Internal Medicine Nephrology; Surgery; ADMIT Internal Medicine Nephrology; ATTEND Internal Medicine Nephrology
PROC: BF101ZZ Fluoroscopy of Bile Ducts using Low Osmolar Contrast (ICD-10-PCS; 2019-03-14)
PROC: 0FT44ZZ Resection of Gallbladder, Percutaneous Endoscopic Approach (ICD-10-PCS; principal; 2019-03-14 13:30)
PROC: 0DB98ZZ Excision of Duodenum, Via Natural or Artificial Opening Endoscopic (ICD-10-PCS; 2019-03-21)
DX: K81.0 Acute cholecystitis (principal); G92 Toxic encephalopathy; I50.23 Acute on chronic systolic (congestive) heart failure; K72.00 Acute and subacute hepatic failure without coma; Z68.41 Body mass index [BMI] 40.0-44.9, adult; I42.0 Dilated cardiomyopathy; N17.9 Acute kidney failure, unspecified; R18.8 Other ascites; N39.0 Urinary tract infection, site not specified; K56.7 Ileus, unspecified; R47.01 Aphasia; K22.10 Ulcer of esophagus without bleeding; E11.9 Type 2 diabetes mellitus without complications; E66.01 Morbid (severe) obesity due to excess calories; Z79.01 Long term (current) use of anticoagulants; I11.0 Hypertensive heart disease with heart failure; E78.5 Hyperlipidemia, unspecified; D50.9 Iron deficiency anemia, unspecified; E83.42 Hypomagnesemia; I25.10 Atherosclerotic heart disease of native coronary artery without angina pectoris; I08.1 Rheumatic disorders of both mitral and tricuspid valves; K29.70 Gastritis, unspecified, without bleeding; Z86.73 Personal history of transient ischemic attack (TIA), and cerebral infarction without residual deficits; Z86.718 Personal history of other venous thrombosis and embolism

== ENCOUNTER → 2019-04-11 15:30 | Outpatient (CLI) | payer MEDICARE, MEDICAID ==
[2019-03-15 14:55] VITALS: BMI 42.6
[~2019-04-11 15:30] MED LIST: ATHLETE'S FOOT15 GM TOPICAL; BAYER CHEWABLE81 MG PO; BUMETANIDE0.5 MG PO; CARAFATE1 G PO; CELEXA20 MG PO; CLEOCIN HCL300 MG PO; COREG 3.1253.125 MG PO; COUMADIN5 MG PO; ENTRESTO 24 MG1 EACH PO; FLOMAX0.4 MG PO; GENTAMICIN IV; HYDROCODON-ACE1 EAC7 PO; K-DUR20 MEQ PO; KEPPRA500 MG PO; LIPITOR40 MG PO; MAGNESIUM OXID250 MG PO; PROTONIX40 MG PO; ZYLOPRIM100 MG PO; [UNRECOGNIZED DRUG - OTHER] IV
[2019-04-11 16:31] LABS: APPEARANCE HAZY (CLEAR); BILIRUBIN NEGATIVE (NEGATIVE); COLOR YELLOW (YELLOW); GLUCOSE NEGATIVE (NEGATIVE); KETONE NEGATIVE (NEGATIVE); NITRITE POSITIVE (NEGATIVE); PROTEIN 1+ mg/dL (NEGATIVE); SPECIFIC GRAVITY 1.015 (1.005-1.020); UROBILINOGEN NORMAL (NORMAL)
[2019-04-11 16:32] LABS: WHITE CELLS - URINE 25-50 /hpf (0-5)
[2019-04-11 16:33] LABS: BACTERIA FEW /hpf (NONE SEEN)
== END | disposition home or self-care (01) ==
LOC: D.LABREF 15:30
PROVIDERS: ATTEND Family Medicine
DX: R82.90 Unspecified abnormal findings in urine (principal)

== ENCOUNTER 2019-04-13 15:32 | Inpatient (IN) | payer MEDICARE, MEDICAID ==
[~2019-04-13] VITALS: Ht 193 cm; Wt 158.8 kg
--- NOTE | ~2019-04-13 | HEMODYNAMI ---
PATIENT:YUKI ESPINOZA MEDICAL RECORD: [id number] : 62 LOCATION:[facility] [place] D.1204 ADMISSION DATE: 04/13/19 Generatedon:04/15/201916:58 Patient name: YUKI ESPINOZA Patient #: [id number] SSN: : 1960 Date of study: 04/15/2019 Page: Of Hemodynamic Procedure Report Patient Data Patient Demographics Procedure consent was obtained First Name: YUKI Gender: Male Last Name: ALEXIS : 1960 Patient #: [id number] Age: 58 year(s) Race: Unknown Additional ID: [id number] Contact details [address]: [address] [place] [address] State: [place] [facility] [place] code: [address] Admission Admission Data Admission Date: 04/13/2019 Admission Time: 19:17 Room #: D.1204 Height (in.): 76 BSA: 2.81 (m2) Height (cm.): 193.04 BMI: 42.48 (kg/m2) Weight (lbs.): 349 Weight (kg.): 158.3 Procedure Procedure Types Cath Procedure Peripheral Cath Diagnostic Procedure Bottom Hoop Driver Peripheral Procedures PICC PICC Line Placement Procedure Description Procedure Date Procedure Date: 04/15/2019 Procedure Start Time: 16:51 Procedure Staff Name Function Lucas Joyce MD Performing Physician Ronald Hoang RT Scrub Jessy Cosme RT Roll Handler Ivory Contreras RN Nurse Cele Montoya RN Nurse Procedure Data Cath Procedure Fluoroscopy Diagnostic fluoroscopy Total fluoroscopy Time: 0.3 time: 0.3 min min Diagnostic fluoroscopy Total fluoroscopy dose: 21 dose: 21 mGy mGy Hemodynamics Rest BSA: 2.81 (m2) O2 Consumption: Estimated: 382.16 (ml/min) O2 Consumption indexed : Estimated:136 (ml/min/m) Pre Cath Intra NCS Post Cath Procedure Log Time Note 16:31:15 Patient Height : 76 inches 16:31:19 Patient Weight : 349 lbs 16:34:15 Time tracking: Stay late (Procedures after 5:00pm) 16:39:27 Patient received from Other to IR Alert and oriented. Tansferred to table in Supine position. 16:39:30 Signed procedure consent form obtained from patient. 16:39:39 Use device set IR Diagnostic 16:39:41 Sterile Angiographic Pack opened to sterile field. 16:39:43 Bag Decanter () opened to sterile field. 16:39:59 SUTURE ETHILON 2-0 BLK MONO FS opened to sterile field. 16:39:59 PowerPICC 5Fr double lumen catheter opened to sterile field. 16:40:06 SHIELD Sorbaview ([id number]) opened to sterile field. 16:40:15 - 16:50:28 Physician arrived 16:50:29 --------ALL STOP TIME OUT------ 16:50:30 Final Timeout: patient, procedure, and site verified with staff and physician. All members of the team are in agreement. 16:51:09 Procedure started. 16:51:09 Full Disclosure recording started 16:51:15 Local anesthetic to right arm with Lidocaine 1% by Lucas Joyce MD.INITIAL ACCESS ONLY 16:54:56 Venous access obtained using ultrasound guidance. 16:55:01 PICC line was trimmed to 48cm and advanced to the superior vena cava.Position verified under fluoroscopy and sutured in place 16:56:45 Procedure ended.(Physican Out) 16:56:59 Fluoroscopy time 00.30 minutes. 16:57:07 Fluoroscopy dose: 21 mGy 16:57:07 Flurop Dose total: 21 16:57:12 Procedure and supply charges have been captured, reviewed, submitted an d are correct. 16:57:49 Report given to Other. Device Usage Item Name Manufacture Quantity Catalog Hospital Part Current Minimal Lot# / Number Charge Number Stock Stock Serial# Code Sterile Cardinal 1 [id number] 5 Angiographic Health Pack Bag Decanter Microtek 1 [id number] 5 (2002S) [employer] Inc[employer] SUTURE Ethicon 1 [id number] [id number] 5 ETHILON 2-0 BLK MONO FS PowerPICC Bard 1 [id number] 712309 [id number] 5 5Fr double lumen catheter SHIELD Centurion 1 [id number] 5 Sorbaview ([id number]) Signature Audit Murray Stage Time Signature Unsigned Intra-Procedure 04/15/2019 Jessy Cosme 4:58:10 PM RT(R) [facility] [address] [place] [address]
[~2019-04-13 15:32] MED LIST changes: -CLEOCIN HCL300 MG PO; -GENTAMICIN IV; -[UNRECOGNIZED DRUG - OTHER] IV
[2019-04-13 16:25] LABS: BASOPHILS 0.4 % (0-2); EOSINOPHILS 4.9 % (0-7); HEMATOCRIT 27.1 % (42.0-54.0); HEMOGLOBIN 8.7 g/dL (13.5-17.5); IMMATURE GRANULOCYTES 0.2 % (0-5); MCH 30.3 pg (26.0-34.0); MCHC 32.1 g/dL (31.0-37.0); MCV 94.4 fL (80.0-100.0); MEAN PLATELET VOLUME 11.5 fL (7.4-10.4); MONOCYTES 6.8 % (2-11); NEUTROPHILS 56.7 % (40-80); RBC 2.87 10x6/uL (4.20-6.10); RDW 17.7 % (11.5-14.5); WBC 4.7 10x3/uL (4.8-10.8)
[2019-04-13 16:26] LABS: PLATELET COUNT 202 10x3/uL (130-400)
[2019-04-13 16:33] LABS: APPEARANCE CLEAR (CLEAR); BILIRUBIN NEGATIVE (NEGATIVE); COLOR YELLOW (YELLOW); GLUCOSE NEGATIVE (NEGATIVE); KETONE NEGATIVE (NEGATIVE); NITRITE NEGATIVE (NEGATIVE); PROTEIN NEGATIVE (NEGATIVE); UROBILINOGEN NORMAL (NORMAL)
[2019-04-13 16:35] LABS: BACTERIA MODERATE /hpf (NONE SEEN); RED CELLS - URINE 0-5 /hpf (0-5)
[2019-04-13 16:43] LABS: APTT 45.9 SECONDS (22.8-39.4); INR 3.23 (0.85-1.17); PROTIME 32.2 SECONDS (11.6-15.0)
[2019-04-13 16:58] LABS: ALBUMIN 2.2 g/dL (3.4-5.0); ALKALINE PHOSPHATASE 174 U/L (46-116); ALT (SGPT) 36 U/L (10-68); BILIRUBIN - TOTAL 0.52 mg/dL (0.2-1.3); CALC OSMOLALITY 298 mosm/kg (275-300); CALCIUM 8.4 mg/dL (8.5-10.1); CARBON DIOXIDE 28.4 mmol/L (21.0-32.0); CHLORIDE - SERUM 108 mmol/L (98-107); CREATININE - SERUM 1.6 mg/dL (0.6-1.3); POTASSIUM - SERUM 3.9 mmol/L (3.5-5.1); SODIUM 144 mmol/L (136-145); UREA NITROGEN 44 mg/dL (7-18); eGFR NON AFRICAN AMERICAN 48 mL/min (90-120)
[2019-04-13 17:04] LABS: GLUCOSE 122 mg/dL (74-106)
[2019-04-13 17:05] LABS: CKMB 0.9 U/L (0.0-3.6); CREATINE KINASE 25 UL (21-232); TROPONIN-I 0.039 ng/mL (0.000-0.060)
--- NOTE | 2019-04-13 17:41 | NUR ---
PT LYING IN BED WITH AT BEDSIDE. NO DISTRESS NOTED.
--- NOTE | 2019-04-13 18:13 | NUR ---
PT IN ROOM NO DISTRESS NOTED. AT BEDSIDE. DENIES NEEDS AT THIS TIME
[2019-04-13 20:00] VITALS: BP 120/71
--- NOTE | 2019-04-13 20:23 | NUR ---
RECEIVED PATIENT TO UNIT VIA STRETCHER. PATIENT TRANSFERED OVER TO BED WITH MAX ASSIST. PATIENT HAS RIGHT SIDED WEAKNESS AND BILATERAL FOOT DROP. HEEL PROTECTORS IN PLACE. ALLERGY BAND AND FALL RISK BAND PLACED ON PATIENT. YELLOW STAR ON DOOR. FAMILY AT BEDSIDE SAYS HE'S NOT A FALL RISK AND DOESN'T WANT A TIMO ALARM. PATIENT HAS INDWELLING STAHL DRAINING CLOUDY YELLOW URINE BY GRAIVTY TO RIGHT SIDE OF BED. STAHL WAS CHANGED BY HOME HEALTH ON 04/11. PATIENTS VSS, NO S/SX OF DISTRESS NOTED, RR EVEN AND UNLABORED ON ROOM AIR. IV TO RT AC, SL, IV PATENT, DRSG C/D/I. QUICK START, MED REC, AND ADMISSON HX COMPLETED.
[2019-04-13 21:14] VITALS: BP 120/67; BMI 42.7
--- NOTE | 2019-04-13 21:14 | NUR ---
ENVIRONMENTAL SPECIALIST ASSESSMENT COMPLETED AND CHARTED.
[2019-04-14] VITALS: BP 129/81
[2019-04-14 04:00] VITALS: BP 118/82
--- NOTE | 2019-04-14 06:02 | NUR ---
I have reviewed this patient and I concur with the Shift Assessment completed by the Licensed Practical Nurse today this shift.
[2019-04-14 07:20] LABS: BASOPHILS 0.4 % (0-2); EOSINOPHILS 4.1 % (0-7); HEMATOCRIT 26.4 % (42.0-54.0); HEMOGLOBIN 8.6 g/dL (13.5-17.5); LYMPHOCYTES 32.1 % (15-50); MCH 30.5 pg (26.0-34.0); MCHC 32.6 g/dL (31.0-37.0); MCV 93.6 fL (80.0-100.0); MEAN PLATELET VOLUME 11.1 fL (7.4-10.4); MONOCYTES 6.9 % (2-11); NEUTROPHILS 56.5 % (40-80); PLATELET COUNT 183 10x3/uL (130-400); RBC 2.82 10x6/uL (4.20-6.10); RDW 17.7 % (11.5-14.5); WBC 5.4 10x3/uL (4.8-10.8)
--- NOTE | 2019-04-14 07:44 | NUR ---
REPORT RECIEVED. PT LYING SEMI FOWLERS. STAHL DRAINING URINE. R AC PIV IS SL. RR EVEN AND UNLABORED. NO DISTRESS NOTED. BED LOCKED AND IN LOWEST POSITION. CALL LIGHT WITHIN REACH. WILL CTM
[2019-04-14 07:47] LABS: ALBUMIN 2.2 g/dL (3.4-5.0); ANION GAP 10.2 mmol/L (8-16); BILIRUBIN - TOTAL 0.59 mg/dL (0.2-1.3); CALCIUM 8.6 mg/dL (8.5-10.1); CARBON DIOXIDE 27.7 mmol/L (21.0-32.0); CREATININE - SERUM 1.5 mg/dL (0.6-1.3); MAGNESIUM - SERUM 1.6 mg/dL (1.8-2.4); PHOSPHOROUS 3.1 mg/dL (2.5-4.9); POTASSIUM - SERUM 3.9 mmol/L (3.5-5.1); PROTEIN - SERUM 6.8 g/dL (6.4-8.2)
[2019-04-14 08:01] VITALS: BP 109/74
[2019-04-14 08:03] VITALS: BMI 42.6
[2019-04-14 11:11] VITALS: BP 123/76
--- NOTE | 2019-04-14 14:20 | NUR ---
I have reviewed this patient and I concur with the Shift Assessment completed by the Licensed Practical Nurse today this shift.
--- NOTE | 2019-04-14 15:00 | MORECARE ---
CASE MANAGEMENT DISCHARGE SUMMARY PATIENT: YUKI ESPINOZA UNIT: [id number] ADM DATE: 04/13/19 AGE: 58 : 62 SEX: M ROOM/BED: D.1204 AUTHOR: SUYAPA VEGA PHYSICIAN: REFERRING PHYSICIAN: MONALISA HOOPER DO DATE OF SERVICE: 04/14/19 Discharge Plan Patient Name: YUKI ESPINOZA [facility] [facility] 1960 Planned Disposition: Home with Home Health Anticipated Discharge Date: Discharge Date: Expected LOS: Initial Reviewer: [email or web address] Initial Review Date: 04/13/2019 Generated: 04/14/19 4:00 pm DCPIA - Discharge Planning Initial Assessment Updated by [email or web address]: Indigo Meier on 04/14/19 2:59 pm * Is the patient Alert and Oriented? No * How many steps to enter\exit or inside your home? * PCP VALDEMAR * Pharmacy [facility] * Preadmission Environment Home with Family * ADLs Total Dependent * Other Equipment HOSP BED, TRAPEZE BAR, JASWANT LIFT, SC, BSC, W/C, WALKER * List name and contact numbers for known caregivers / representatives who currently or will assist patient after discharge: DO VELASCO OTHER- [phone] * Verbal permission to speak to the caregivers and representatives has been obtained from the patient. Yes * Community resources currently utilized Home Health * Please name any agencies selected above. [facility], [facility], [facility] * Additional services required to return to the preadmission environment? No * Can the patient safely return to the preadmission environment? Yes * Has this patient been hospitalized within the prior 30 days at any hospital? Yes Patient Name: YUKI ESPINOZA Page 70902 at 1500 All edits/amendments must be made on the electronic document DICTATION DATE: 04/14/191458 WOOL PULLER: SHAHANA 04/14/191458 RPT#: [id number] DC DATE: STATUS: ADM IN [facility] [address] [place] [address] END OF REPORT
--- NOTE | 2019-04-14 15:09 | MORECARE ---
CASE MANAGEMENT DISCHARGE SUMMARY PATIENT: YUKI ESPINOZA UNIT: [id number] ADM DATE: 04/13/19 AGE: 58 : 62 SEX: M ROOM/BED: D.1204 AUTHOR: SILVIADOC PHYSICIAN: REFERRING PHYSICIAN: MONALISA HOOPER DO DATE OF SERVICE: 04/14/19 Discharge Plan Patient Name: YUKI ESPINOZA Facility: [facility]:[place] : 1960 Planned Disposition: Home with Home Health Anticipated Discharge Date: Discharge Date: Expected LOS: Initial Reviewer: [email or web address] Initial Review Date: 04/13/2019 Generated: 04/14/19 4:08 pm Comments DCP- Discharge Planning Updated by [email or web address]: Indigo Meier on 04/14/19 2:[address] Patient Name: YUKI ESPINOZA Admission Status: ER Accout number: [id number] Admission Date: 04-13-2019 : 1960 Admission Diagnosis: Attending: MONALISA HOOPER Current LOS: 1 Anticipated DC Date: Planned Disposition: Home with Home Health Primary Insurance: WELL[employer] MEDICARE ADV Discharge Planning Comments: CM called significant other Lois [phone] after explaining CM role and obtaining verbal consent. Patient lives at home with his Lois where he is total care and plans to return there upon discharge. Patient feels this would be a safe discharge. CM discussed availability / needs of home health and medical equipment. Patient has [facility] services with [facility] and plans to resume care with them MICHELLE signed. Patient denies any discharge needs at this time. Patient will need ambulance transfer home. CM will continue to follow and assist as needed with discharge planning / needs. American Indian Studies Professor: Indigo Meier DCPIA - Discharge Planning Initial Assessment Updated by [email or web address]: Indigo Meier on 04/14/19 2:59 pm * Is the patient Alert and Oriented? No * How many steps to enter\exit or inside your home? * PCP VALDEMAR * Pharmacy [facility] * Preadmission Environment Home with Family * ADLs Total Dependent * Other Equipment HOSP BED, TRAPEZE BAR, JASWANT LIFT, SC, BSC, W/C, WALKER * List name and contact numbers for known caregivers / representatives who currently or will assist patient after discharge: LOIS VIVEROS - SIGNIFICANT OTHER- [phone] * Verbal permission to speak to the caregivers and representatives has been obtained from the patient. Yes * Community resources currently utilized Home Health * Please name any agencies selected above. [facility] , [facility], [facility] * Additional services required to return to the preadmission environment? No * Can the patient safely return to the preadmission environment? Yes * Has this patient been hospitalized within the prior 30 days at any hospital? Yes Last DP export: 04/14/19 2:00 p Patient Name: YUKI ESPINOZA Page 61323 at 1509 All edits/amendments must be made on the electronic document DICTATION DATE: 04/14/191507 DIAMOND SIZER: SHAHANA 04/14/191507 RPT#: [id number] DC DATE: STATUS: ADM IN [facility] [address] [place] [address] END OF REPORT
--- NOTE | 2019-04-14 16:45 | NUR ---
LEFT GREAT TOE HAS 1CM X 1CM X BLACK DRY ESCAR (UNSTAGEABLE PRESSURE INJURY) BETWEEN LEFT GREAT AND #2 TOE IS A DRY RUPTURED BLISTER. NO DRAINAGE LEFT HEEL HAS A 3CM X 3CM UNSTAGEABLE PRESSURE INJURY. IT IS COVERED WITH SOFT BROWN/MOIST ESCAR, BUT IS WITHOUT ODOR. RIGHT LATERAL FOOT HAS A 1CM X 1CM X SCAB BELOW #5 TOE RIGHT LATERAL FOOT HAS RED BLANCHABLE AREA BETWEEN #5 TOE AND HEEL. RIGHT LATERAL CALF HAS 1CM X 1CM X SCAB ULCER. NO DRAINAGE IS NOTED. BUTTOCKS HAS SEVERAL SKIN TEARS BUT NO PRESSURE INJURY IS NOTED. COVERED BUTTOCKS WITH SACRAL MEPILEX. PAINTED ALL OTHER WOUNDS WITH BETADINE AND COVERED WITH 4X4S. PT TOLERATED WELL.
[2019-04-14 18:06] VITALS: BP 120/79
--- NOTE | 2019-04-14 19:40 | NUR ---
PATIENT RESTING IN BED WITH NO S/S OF DISTRESS. VSS. BROUGHT PATIENT WATER PER HIS REQUEST. PATIENT DENIES OTHER NEEDS AT THIS TIME. BED IN LOWEST POSITION AND CALL LIGHT WITHIN REACH. ENCOURAGED THE PATIENT TO CALL IF HE HAS NEEDS. WILL CONTINUE TO MONITOR.
[2019-04-14 19:53] VITALS: BP 121/82
[2019-04-15 00:07] VITALS: BP 126/81
[2019-04-15 04:00] VITALS: BP 117/73
[2019-04-15 07:03] LABS: ANION GAP 11.4 mmol/L (8-16); CALCIUM 8.2 mg/dL (8.5-10.1); CARBON DIOXIDE 27.4 mmol/L (21.0-32.0); CREATININE - SERUM 1.7 mg/dL (0.6-1.3); MAGNESIUM - SERUM 1.5 mg/dL (1.8-2.4); PHOSPHOROUS 3.6 mg/dL (2.5-4.9); POTASSIUM - SERUM 3.8 mmol/L (3.5-5.1)
[2019-04-15 07:16] LABS: PROTIME 26.1 SECONDS (11.6-15.0)
[2019-04-15 07:18] LABS: BASOPHILS 0.2 % (0-2); HEMATOCRIT 27.1 % (42.0-54.0); HEMOGLOBIN 8.8 g/dL (13.5-17.5); IMMATURE GRANULOCYTES 0.2 % (0-5); INR 2.48 (0.85-1.17); LYMPHOCYTES 34.7 % (15-50); MCH 30.6 pg (26.0-34.0); MCHC 32.5 g/dL (31.0-37.0); MCV 94.1 fL (80.0-100.0); MEAN PLATELET VOLUME 11.6 fL (7.4-10.4); MONOCYTES 7.7 % (2-11); NEUTROPHILS 53.2 % (40-80); PLATELET COUNT 193 10x3/uL (130-400); RBC 2.88 10x6/uL (4.20-6.10); RDW 17.7 % (11.5-14.5); WBC 5.7 10x3/uL (4.8-10.8)
--- NOTE | 2019-04-15 07:40 | NUR ---
REPORT RECIEVED. PT CURRENTLY SITTING UP IN BED EATING BREAKFAST. HE HAS A R AC PIV THAT IS SL. RR EVEN AND UNLABORED. NO DISTRESS NOTED. BED LOCKED AND IN LOWEST POSITION. CALL LIGHT WITHIN REACH. WILL CTM
[2019-04-15 08:25] VITALS: BP 110/79
[2019-04-15 11:36] VITALS: BP 114/74
[2019-04-15 14:18] VITALS: BP 124/89
--- NOTE | 2019-04-15 15:36 | NUR ---
BED BATH GIVEN WITH MOBILE DISC JOCKEY SARAY. PT ALSO HAD A BM AT THIS TIME. CLEANED PT AND APPLIED A NEW MEPELEX TO COCCYX. ALSO PUT PT ON NEW AIR MATTRESS AT THIS TIME. DRESSING TO R BIG TOE AND LEFT LEG ARE C/D/I. WILL CTM
--- NOTE | 2019-04-15 16:40 | NUR ---
I have reviewed this patient and I concur with the Shift Assessment completed by the Licensed Practical Nurse today this shift.
--- NOTE | 2019-04-15 16:46 | MORECARE ---
CASE MANAGEMENT DISCHARGE SUMMARY PATIENT: YUKI ESPINOZA UNIT: [id number] ADM DATE: 04/13/19 AGE: 58 : 62 SEX: M ROOM/BED: D.1204 AUTHOR: SILVIADOC PHYSICIAN: REFERRING PHYSICIAN: MONALISA HOOPER DO DATE OF SERVICE: 04/15/19 Discharge Plan Patient Name: YUKI ESPINOZA Facility: [facility]:[place] : 1960 Planned Disposition: Home with Home Health Anticipated Discharge Date: Discharge Date: Expected LOS: Initial Reviewer: [email or web address] Initial Review Date: 04/13/2019 Generated: 04/15/19 5:45 pm Comments DCP- Discharge Planning Updated by [email or web address]: Indigo Meier on 04/15/19 3:[address] CM received notice today that patient will need to go home with 7 days of IV antibiotics. CM spoke with July at [facility] that the plan was for patient to go home with IV antibiotics. July called back later and stated that their weblogic administrator says that it isn't safe for patient to get IV antibiotics in the home d/t home conditions. She stated there is animal feces all over the home in layers. All the furniture has been soaked in urine. APS had been called but because the patient is able to make his own decisions they wouldn't do anything. [facility] IS REFUSING TO DO IV ANTIBIOTICS IN THE HOME. CM relayed this information to nursing staff and CM station installation supervisor. CM will continue to follow and assist as needed with discharge planning / needs. DCP- Discharge Planning Updated by [email or web address]: Indigo Meier on 04/14/19 2:[address] Patient Name: YUKI ESPINOAZ Admission Status: ER Accout number: [id number] Admission Date: 04-13-2019 : 1960 Admission Diagnosis: Attending: MONALISA HOOPER Current LOS: 1 Anticipated DC Date: Planned Disposition: Home with Home Health Primary Insurance: WELL[employer] MEDICARE ADV Discharge Planning Comments: CM called significant other Lois [phone] after explaining CM role and obtaining verbal consent. Patient lives at home with his Lois where he is total care and plans to return there upon discharge. Patient feels this would be a safe discharge. CM discussed availability / needs of home health and medical equipment. Patient has Home [facility] services with [facility] and plans to resume care with them MICHELLE signed. Patient denies any discharge needs at this time. Patient will need ambulance transfer home. CM will continue to follow and assist as needed with discharge planning / needs. Manager Collection: Indigo Meier DCPIA - Discharge Planning Initial Assessment Updated by [email or web address]: Indigo Meier on 04/14/19 2:59 pm * Is the patient Alert and Oriented? No * How many steps to enter\exit or inside your home? * PCP VALDEMAR * Pharmacy [facility] * Preadmission Environment Home with Family * ADLs Total Dependent * Other Equipment HOSP BED, TRAPEZE BAR, JASWANT LIFT, SC, BSC, W/C, WALKER * List name and contact numbers for known caregivers / representatives who currently or will assist patient after discharge: LOISTravis VIVEROS - SIGNIFICANT OTHER- [phone] * Verbal permission to speak to the caregivers and representatives has been obtained from the patient. Yes * Community resources currently utilized Home Health * Please name any agencies selected above. [facility], [facility], [facility] * Additional services required to return to the preadmission environment? No * Can the patient safely return to the preadmission environment? Yes * Has this patient been hospitalized within the prior 30 days at any hospital? Yes Last DP export: 04/14/19 2:09 p Patient Name: YUKI ESPINOZA Page 25478 at 1646 All edits/amendments must be made on the electronic document DICTATION DATE: 04/15/191644 INVESTMENT ASSOCIATE: SHAHANA 04/15/191644 RPT#: [id number] DC DATE: STATUS: ADM IN [facility] [address] [place] [address] END OF REPORT
--- NOTE | 2019-04-15 17:30 | NUR ---
CLEANED PT AFTER HAVING BM. APPLIED NEW MEPELEX TO COCCYX.
--- NOTE | 2019-04-15 19:15 | NUR ---
PT CARE ASSUMED. RR EVEN AND UNLABORED. NO S/S OF DISTRESS NOTED AT THIS TIME. PT EXPRESSES NO FURTHER NEEDS. WILL CPOC.
[2019-04-15 20:00] VITALS: BP 112/77
--- NOTE | 2019-04-15 23:55 | NUR ---
REPOSITIONED PT FOR COMFORT. FLUIDS ENCOURAGED. WILL CPOC.
[2019-04-16 00:23] VITALS: BP 106/80
[2019-04-16 04:49] VITALS: BP 124/81
[2019-04-16 06:06] LABS: BASOPHILS 0.2 % (0-2); EOSINOPHILS 3.4 % (0-7); HEMATOCRIT 25.8 % (42.0-54.0); HEMOGLOBIN 8.4 g/dL (13.5-17.5); IMMATURE GRANULOCYTES 0.2 % (0-5); LYMPHOCYTES 32.8 % (15-50); MCH 30.5 pg (26.0-34.0); MCHC 32.6 g/dL (31.0-37.0); MCV 93.8 fL (80.0-100.0); MEAN PLATELET VOLUME 11.6 fL (7.4-10.4); MONOCYTES 7.8 % (2-11); NEUTROPHILS 55.6 % (40-80); PLATELET COUNT 186 10x3/uL (130-400); RBC 2.75 10x6/uL (4.20-6.10); RDW 17.5 % (11.5-14.5); WBC 5.3 10x3/uL (4.8-10.8)
--- NOTE | 2019-04-16 06:09 | NUR ---
I have reviewed this patient and I concur with the Shift Assessment completed by the Licensed Practical Nurse today this shift.
[2019-04-16 06:32] LABS: ANION GAP 10.5 mmol/L (8-16); CALCIUM 8.1 mg/dL (8.5-10.1); CARBON DIOXIDE 29.2 mmol/L (21.0-32.0); CREATININE - SERUM 1.6 mg/dL (0.6-1.3); GENTAMICIN - RANDOM 4.8 ug/mL (0.5-2.0); MAGNESIUM - SERUM 1.4 mg/dL (1.8-2.4); PHOSPHOROUS 3.8 mg/dL (2.5-4.9); POTASSIUM - SERUM 3.7 mmol/L (3.5-5.1)
[2019-04-16 08:19] VITALS: BP 98/56
--- NOTE | 2019-04-16 08:30 | NUR ---
PT YELLING OUT "HELP. PLEASE. HELP" NURSE ASKED PT IF HE NEEDED CHANGED. PT YELLED BACK, "YES". FULL LINEN CHANGE PROVIDED X2 MAX ASSIST. CEM CARE AND STAHL CARE PROVIDED. AM MEDICATIONS GIVEN ORDERED. PT TOLERATED WELL. WOUND CARE PROVIDED TO BLE. PT TOLERATED WELL. SHIFT ASSESSMENT PERFORMED. CALL LIGHT WITHIN REACH. STAHL DRAINING STRAW COLORED URINE FREELY VIA GRAVITY. BED IN LOWEST POSITION. WILL CONT TO FOLLOW POC
--- NOTE | 2019-04-16 11:03 | NUR ---
PER CM NOTE, PT HOME IS NOT SUITABLE FOR HH IV INFUSIONS. SPOKE WITH TO SEE IF THERE IS ANOTHER HOME THEY COULD STAY AT FOR A WEEK. STATED THAT SHE ONLY SENT PT TO THE HOSPITAL BECAUSE SHE WAS TOLD THAT "THEY WOULD HAVE TO STOP THE PT BUMEX IN ORDER TO GIVE IV ANTIBIOTICS" AND "THEY COULD ONLY DO IM INJECTIONS IF HE STAYED HOME." JUST CONTINUED TO REPEAT THESE STATEMENTS AND NURSE GOT NOWHERE WITH . ADVISED THAT CM WILL START LOOKING FOR SHORT TERM REHAB PLACEMENT FOR IV ANTIBIOTICS AND TOLD NURSE "GOOD LUCK WITH THAT, I ALREADY TRIED AND NO ONE WOULD RETURN MY CALLS." NOTIFIED CM OF THIS CONVERSATION.
--- NOTE | 2019-04-16 11:40 | MORECARE ---
CASE MANAGEMENT DISCHARGE SUMMARY PATIENT: YUKI ESPINOZA UNIT: [id number] ADM DATE: 04/13/19 AGE: 58 : 62 SEX: M ROOM/BED: D.1204 AUTHOR: SILVIADOC PHYSICIAN: REFERRING PHYSICIAN: MONALISA HOOPER DO DATE OF SERVICE: 04/16/19 Discharge Plan Patient Name: YUKI ESPINOZA Facility: [facility]:[place] : 1960 Planned Disposition: Home with Home Health Anticipated Discharge Date: Discharge Date: Expected LOS: Initial Reviewer: [email or web address] Initial Review Date: 04/13/2019 Generated: 04/16/19 12:40 pm Comments DCP- Discharge Planning Updated by [email or web address]: Evelyne Wilson on 04/16/19 10:[address] CM RECEIVED A TELEPHONE CALL FROM THE [facility] NURSE. THE PATIENT HAS A DISCHARGE ORDER. CM NOTE STATES THE HOME HEALTH PROVIDER STATED HIS ENVIRONMENT IS UNSAFE.. HOME HEALTH WILL NOT PROVIDE SERVICE. THE NURSE SPOKE WITH THE . SHE HAS NO OTHER PLACE TO GO WITH THE PATIENT. HE CANNOT BE SAFELY DISCHARGED TODAY. THE FIELD SERVICE COORDINATOR WILL NEED TO NOTIFY THE HEEL SORTER FOR AN ALTERNATIVE ON THURSDAY. HE HAS A MANAGED MEDICARE PROVIDER. DCP- Discharge Planning Updated by [email or web address]: Indigo Meier on 04/15/19 3:[address] CM received notice today that patient will need to go home with 7 days of IV antibiotics. CM spoke with July at [facility] that the plan was for patient to go home with IV antibiotics. July called back later and stated that their mainframe systems administrator says that it isn't safe for patient to get IV antibiotics in the home d/t home conditions. She stated there is animal feces all over the home in layers. All the furniture has been soaked in urine. APS had been called but because the patient is able to make his own decisions they wouldn't do anything. [facility] IS REFUSING TO DO IV ANTIBIOTICS IN THE HOME. CM relayed this information to nursing staff and CM supervisor tunnel heading. CM will continue to follow and assist as needed with discharge planning / needs. DCP- Discharge Planning Updated by [id number]: Indigo Meier on 04/14/19 2:[address] Patient Name: YUKI ESPINOZA Admission Status: ER Accout number: [id number] Admission Date: 04-13-2019 : 1960 Admission Diagnosis: Attending: MONALISA HOOPER Current LOS: 1 Anticipated DC Date: Planned Disposition: Home with Home Health Primary Insurance: WELL[employer] MEDICARE ADV Discharge Planning Comments: CM called significant other Lois [phone] after explaining CM role and obtaining verbal consent. Patient lives at home with his Lois where he is total care and plans to return there upon discharge. Patient feels this would be a safe discharge. CM discussed availability / needs of home health and medical equipment. Patient has Home [facility] services with [facility] and plans to resume care with them MICHELLE signed. Patient denies any discharge needs at this time. Patient will need ambulance transfer home. CM will continue to follow and assist as needed with discharge planning / needs. Courtroom Reporter: Indigo Meier DCPIA - Discharge Planning Initial Assessment Updated by [email or web address]: Indigo Meier on 04/14/19 2:59 pm * Is the patient Alert and Oriented? No * How many steps to enter\exit or inside your home? * PCP VALDEMAR * Pharmacy [facility] * Preadmission Environment Home with Family * ADLs Total Dependent * Other Equipment HOSP BED, TRAPEZE BAR, JASWANT LIFT, SC, BSC, W/C, WALKER * List name and contact numbers for known caregivers / representatives who currently or will assist patient after discharge: LOIS VIVEROS - SIGNIFICANT OTHER- [phone] * Verbal permission to speak to the caregivers and representatives has been obtained from the patient. Yes * Community resources currently utilized Home Health * Please name any agencies selected above. [facility], [facility], [facility] * Additional services required to return to the preadmission environment? No * Can the patient safely return to the preadmission environment? Yes * Has this patient been hospitalized within the prior 30 days at any hospital? Yes Last DP export: 04/15/19 3:46 p Patient Name: YUKI ESPINOZA Page 06489 at 1140 All edits/amendments must be made on the electronic document DICTATION DATE: 04/16/19 1139 COURTROOM REPORTER: SHAHANA 04/16/19 1139 RPT#: [id number] DC DATE: STATUS: ADM IN [facility] [address] [place] [address] END OF REPORT
--- NOTE | 2019-04-16 12:20 | NUR ---
PT RESTING IN BED, TRAY SET UP PROVIDED. DENIES ANY NEEDS AT THIS TIME, WILL CONT TO FOLLOW POC
--- NOTE | 2019-04-16 17:09 | NUR ---
PT RESTING IN BED, TRAY SET UP PROVIDED. DENIES ANY NEEDS AT THIS TIME, WILL CONT TO FOLLOW POC
--- NOTE | 2019-04-16 19:31 | NUR ---
PT CARE ASSUMED. PT RR EVEN AND UNLABORED. NO S/S OF DISTRESS NOTED. PT VOICES C/O PAIN. PROVIDED PAIN MEDICATION PER ORDER. NO FUTHER NEEDS EXPRESSED. CALL LIGHT IN REACH. WILL CTM.
[2019-04-16 20:00] VITALS: BP 103/68
[2019-04-17 00:16] VITALS: BP 128/69
--- NOTE | 2019-04-17 02:08 | NUR ---
PT C/O PAIN WHERE NEW PICC IS. REPOSITIONED PT AND PROVIDED PAIN MEDICATION PER REQUEST. NO FURTHER VOICED C/O OR CONCERNS AT THIS TIME. WILL CTM.
[2019-04-17 06:09] LABS: BASOPHILS 0.2 % (0-2); EOSINOPHILS 3.2 % (0-7); HEMATOCRIT 25.8 % (42.0-54.0); HEMOGLOBIN 8.4 g/dL (13.5-17.5); IMMATURE GRANULOCYTES 0.2 % (0-5); LYMPHOCYTES 35.3 % (15-50); MCH 30.4 pg (26.0-34.0); MCHC 32.6 g/dL (31.0-37.0); MCV 93.5 fL (80.0-100.0); MEAN PLATELET VOLUME 11.3 fL (7.4-10.4); MONOCYTES 8.7 % (2-11); NEUTROPHILS 52.4 % (40-80); PLATELET COUNT 191 10x3/uL (130-400); RBC 2.76 10x6/uL (4.20-6.10); RDW 17.4 % (11.5-14.5); WBC 5.1 10x3/uL (4.8-10.8)
--- NOTE | 2019-04-17 06:22 | NUR ---
PT BLOOD SUGAR 48 GAVE ORANGE JUICE. RECHECKED BLOOD SUGAR NOW 97. WILL CTM.
[2019-04-17 06:32] LABS: CALCIUM 8.1 mg/dL (8.5-10.1); CARBON DIOXIDE 30.4 mmol/L (21.0-32.0); CREATININE - SERUM 1.7 mg/dL (0.6-1.3); GENTAMICIN - RANDOM 2.6 ug/mL (0.5-2.0); MAGNESIUM - SERUM 1.4 mg/dL (1.8-2.4); PHOSPHOROUS 4.4 mg/dL (2.5-4.9); POTASSIUM - SERUM 3.4 mmol/L (3.5-5.1)
[2019-04-17 06:37] LABS: INR 2.12 (0.85-1.17)
[2019-04-17 08:25] VITALS: BP 93/65
--- NOTE | 2019-04-17 08:51 | NUR ---
PT RESTING IN BED, VSS AND WNL. SHIFT ASSESSMENT PERFORMED. WOUND CARE PROVIDED TO BLE. PT TOLERATED WELL. AM MEDICATIONS GIVEN ORDERED. STAHL CATHETER DRAINING STRAW COLORED URINE FREELY VIA GRAVITY, CALL LIGHT WITHIN REACH, DENIES ANY NEEDS AT THIS TIME, WILL CONT TO FOLLOW POC
[2019-04-17] MEDS ORDERED: CLEOCIN HCL300 MG PO (11:01)
[2019-04-17] MEDS ORDERED: GENTAMICIN IV (11:04)
[2019-04-17] MEDS ORDERED: [UNRECOGNIZED DRUG - OTHER] IV (11:04)
[2019-04-17 11:44] VITALS: BP 98/56
--- NOTE | 2019-04-17 12:00 | NUR ---
PT RESTING IN BED, TRAY SET UP PROVIDED. DENIES ANY NEEDS AT THIS TIME, WILL CONT TO FOLLOW POC
[2019-04-17 16:39] VITALS: BP 118/66
--- NOTE | 2019-04-17 19:25 | NUR ---
LYING IN BED. ALERT. EXP APHASIA WITH WORD SALAD. DIFF COMMUNICATING. ANXIOUS AND AGITATED AT TIMES. RESP EVEN AND NONLABORED. CONTACT ISO IN USE FOR PSEUDOMAS IN URINE. CHRONIC STAHL PRESENT AND DRAINING CLOUDY YELLOW URINE. MULTIPLE WOUNDS TO LT GREAT TOE, LT HEEL, RT LATERAL FOOT AND RT LOBO WITH DRSGS C/D/I WITH BILAT HEEL PROTECTORS IN USE. BILAT FOOT DROP. 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 TELEMETRY SHOWS CONTROLLED AFIB WITH RATE OF 74. AIR MATTRESS IN USE. RT UPPER ARM PICC IS SALINE LOCKED. DENIES PAIN. SR ELEVATED X2. CL IN REACH.
[2019-04-17 19:58] VITALS: BP 118/70
--- NOTE | 2019-04-17 22:36 | NUR ---
AWAKE, LYING IN BED. NO DISTRESS. CL IN REACH.
[2019-04-17 23:40] VITALS: BP 122/77
--- NOTE | 2019-04-18 01:00 | NUR ---
ASSISTED ONTO BEDPAN. LARGE AMOUNT OF BROWN LIQUID STOOL EXPELLED.
[2019-04-18 03:50] VITALS: BP 129/80
--- NOTE | 2019-04-18 03:53 | NUR ---
HAS RESTED WELL SO FAR THIS SHIFT. NO DISTRESS. CL IN REACH.
[2019-04-18 05:07] LABS: BASOPHILS 0.2 % (0-2); EOSINOPHILS 2.8 % (0-7); HEMATOCRIT 25.4 % (42.0-54.0); HEMOGLOBIN 8.3 g/dL (13.5-17.5); IMMATURE GRANULOCYTES 0.2 % (0-5); LYMPHOCYTES 30.4 % (15-50); MCH 30.3 pg (26.0-34.0); MCHC 32.7 g/dL (31.0-37.0); MCV 92.7 fL (80.0-100.0); MEAN PLATELET VOLUME 11.4 fL (7.4-10.4); MONOCYTES 7.5 % (2-11); NEUTROPHILS 58.9 % (40-80); PLATELET COUNT 193 10x3/uL (130-400); RBC 2.74 10x6/uL (4.20-6.10); RDW 17.1 % (11.5-14.5); WBC 5.7 10x3/uL (4.8-10.8)
[2019-04-18 05:26] LABS: ANION GAP 8.6 mmol/L (8-16); CALCIUM 8.1 mg/dL (8.5-10.1); CARBON DIOXIDE 30.1 mmol/L (21.0-32.0); CREATININE - SERUM 1.8 mg/dL (0.6-1.3); MAGNESIUM - SERUM 1.3 mg/dL (1.8-2.4); POTASSIUM - SERUM 3.7 mmol/L (3.5-5.1)
[2019-04-18 07:39] VITALS: BP 115/72
--- NOTE | 2019-04-18 11:03 | NUR ---
AM MEDS GIVEN AT THIS TIME. PT HAD NO TROUBLE SWALLOWING PILLS. BLOOD SUGAR OF 120, NO COVERAGE NEEDED PER S/S. PT REFUSED TO HAVE VITAL SIGNS TAKEN OR DRESSING CHANGE DONE AT THIS TIME. PT STARTING TO GET A LITTLE AGITATED. WILL TRY AGAIN TO PROVIDED DRESSING CHANGE TO LEGS. STAHL CATHETER DRAINING YELLOW URINE TO GRAVIRY. RT UPPPER ARM PICC INFUSING MAG. PT DENIES ANY NEEDS AT THIS TIME. CALL LIGHT IN REACH, BEDSIDE RAILS X2, BED IN LOW POSITION. NAD NOTED, WILL CONTINUE TO MONITOR.
--- NOTE | 2019-04-18 13:25 | NUR ---
NOTIFIED BY BROADCAST PROGRAM DIRECTOR AKIL, THAT PT HAS 7BEAT RUN OF VTACH. NOTIFIED DAWNA BURRIS APRN. NEW ORDER TO CONSULT CARDIOLOGY. ACCORDING TO PT'S ALLERGIES PT IS ALLERGIC TO TETRACYCLINE, ORDER FOR DOXY PUT IN BY DR. OTERO. NOTIFIED BY [facility] PHARMACIST TO DUE A TEST RUN WITH THE DOXY AND SEE HOW THE PT REACTS.
--- NOTE | 2019-04-18 13:53 | NUR ---
Nutrition Follow-up: Diet: Diabetic PO intake: 90% x 12 meals Significant meds: vancomycin, vibramycin, coumadin, K-dur, bumex, SSI Labs reviewed Wt: 350# (04/14/19) +BM Will add Pineda BID to help with wound healing of multiple pressure ulcers. RD Following
--- NOTE | 2019-04-18 13:59 | MORECARE ---
CASE MANAGEMENT DISCHARGE SUMMARY PATIENT: YUKI ESPINOZA UNIT: [id number] ADM DATE: 04/13/19 AGE: 58 : 62 SEX: M ROOM/BED: D.1204 AUTHOR: SUYAPA VEGA PHYSICIAN: REFERRING PHYSICIAN: MONALISA HOOPER DO DATE OF SERVICE: 04/18/19 Discharge Plan Patient Name: YUKI ESPINOZA Facility: [facility]:[place] : 1960 Planned Disposition: Home with Home Health Anticipated Discharge Date: Discharge Date: Expected LOS: Initial Reviewer: [email or web address] Initial Review Date: 04/13/2019 Generated: 04/18/19 2:59 pm DCP- Discharge Planning Updated by [email or web address]: Evelyne Wilson on 04/16/19 10:[address] CM RECEIVED A TELEPHONE CALL FROM THE [facility] NURSE. THE PATIENT HAS A DISCHARGE ORDER. CM NOTE STATES THE HOME HEALTH PROVIDER STATED HIS ENVIRONMENT IS UNSAFE.. HOME HEALTH WILL NOT PROVIDE SERVICE. THE NURSE SPOKE WITH THE . SHE HAS NO OTHER PLACE TO GO WITH THE PATIENT. HE CANNOT BE SAFELY DISCHARGED TODAY. THE BOATWRIGHT WILL NEED TO NOTIFY THE ASSET SPECIALIST FOR AN ALTERNATIVE ON THURSDAY. HE HAS A MANAGED MEDICARE PROVIDER. DCP- Discharge Planning Updated by [email or web address]: Indigo Meier on 04/15/19 3:[address] CM received notice today that patient will need to go home with 7 days of IV antibiotics. CM spoke with July at [facility] that the plan was for patient to go home with IV antibiotics. July called back later and stated that their storage administrator says that it isn't safe for patient to get IV antibiotics in the home d/t home conditions. She stated there is animal feces all over the home in layers. All the furniture has been soaked in urine. APS had been called but because the patient is able to make his own decisions they wouldn't do anything. [facility] IS REFUSING TO DO IV ANTIBIOTICS IN THE HOME. CM relayed this information to nursing staff and CM supervisor webbing. CM will continue to follow and assist as needed with discharge planning / needs. DCP- Discharge Planning Updated by [email or web address]: Indigo Meier on 04/14/19 2:[address] Patient Name: YUKI ESPINOZA Admission Status: ER Accout number: [id number] Admission Date: 04-13-2019 : 1960 Admission Diagnosis: Attending: MONALISA HOOPER Current LOS: 1 Anticipated DC Date: Planned Disposition: Home with Home Health Primary Insurance: [employer] MEDICARE ADV Discharge Planning Comments: CM called significant other Lois [phone] after explaining CM role and obtaining verbal consent. Patient lives at home with his Lois where he is total care and plans to return there upon discharge. Patient feels this would be a safe discharge. CM discussed availability / needs of home health and medical equipment. Patient has Home Hel[facility] services with [facility] and plans to resume care with them MICHELLE signed. Patient denies any discharge needs at this time. Patient will need ambulance transfer home. CM will continue to follow and assist as needed with discharge planning / needs. Director Of Archives: Indigo Meier DCPIA - Discharge Planning Initial Assessment Updated by [email or web address]: Indigo Meier on 04/14/19 2:59 pm * Is the patient Alert and Oriented? No * How many steps to enter\exit or inside your home? * PCP VALDEMAR * Pharmacy [facility] * Preadmission Environment Home with Family * ADLs Total Dependent * Other Equipment HOSP BED, TRAPEZE BAR, JASWANT LIFT, SC, BSC, W/C, WALKER * List name and contact numbers for known caregivers / representatives who currently or will assist patient after discharge: LOIS VIVEROS - SIGNIFICANT OTHER- [phone] * Verbal permission to speak to the caregivers and representatives has been obtained from the patient. Yes * Community resources currently utilized Home Health * Please name any agencies selected above. [facility], [facility], [facility] * Additional services required to return to the preadmission environment? No * Can the patient safely return to the preadmission environment? Yes * Has this patient been hospitalized within the prior 30 days at any hospital? Yes Last DP export: 04/16/19 10:40 a Patient Name: YUKI ESPINOZA Page 38774 at 1350 All edits/amendments must be made on the electronic document DICTATION DATE: 04/18/19 3845 BIOMEDICAL ENGINEERING INTERNSHIP: SHAHANA 04/18/19 1358 RPT#: [id number] DC DATE: STATUS: ADM IN [facility] [address] [place] [address] END OF REPORT
--- NOTE | 2019-04-18 14:29 | MORECARE ---
CASE MANAGEMENT DISCHARGE SUMMARY PATIENT: YUKI ESPINOZA UNIT: [id number] ADM DATE: 04/13/19 AGE: 58 : 62 SEX: M ROOM/BED: D.1204 AUTHOR: SUYAPA VEGA PHYSICIAN: REFERRING PHYSICIAN: MONALISA HOOPER DO DATE OF SERVICE: 04/18/19 Discharge Plan Patient Name: YUKI ESPINOZA Facility: [facility]:[place] : 1960 Planned Disposition: Home with Home Health Anticipated Discharge Date: Discharge Date: Expected LOS: Initial Reviewer: [email or web address] Initial Review Date: 04/13/2019 Generated: 04/18/19 3:29 pm Comments DCP- Discharge Planning Updated by [email or web address]: Indigo Meier on 04/18/19 1:[address] CM met with Lois (caregiver and POA) at this time they have decided to go [facility] with [facility] discharge. Lois has spoken to Isis Jama [phone] @ [facility] and has made arrangements to admit after discharge. CM called and spoke with Nadeen resident care coordinator @ [facility] [phone]. fax [phone]. CM will send clinical information to [facility] per request. MAIRA will contacted July with [facility] to let her know plan for stopping services. CM will continue to follow and assist with discharge planning / needs. DCP- Discharge Planning Updated by [email or web address]: Evelyne Wilson on 04/16/19 10:[address] CM RECEIVED A TELEPHONE CALL FROM THE [facility] NURSE. THE PATIENT HAS A DISCHARGE ORDER. CM NOTE STATES THE HOME HEALTH PROVIDER STATED HIS ENVIRONMENT IS UNSAFE.. HOME HEALTH WILL NOT PROVIDE SERVICE. THE NURSE SPOKE WITH THE . SHE HAS NO OTHER PLACE TO GO WITH THE PATIENT. HE CANNOT BE SAFELY DISCHARGED TODAY. THE TALENT SOURCER WILL NEED TO NOTIFY THE CONDUIT REAMER OPERATOR FOR AN ALTERNATIVE ON THURSDAY. HE HAS A MANAGED MEDICARE PROVIDER. DCP- Discharge Planning Updated by [id number]: Indigo Meier on 04/15/19 3:[address] CM received notice today that patient will need to go home with 7 days of IV antibiotics. CM spoke with July at [facility] that the plan was for patient to go home with IV antibiotics. July called back later and stated that their client service administrator says that it isn't safe for patient to get IV antibiotics in the home d/t home conditions. She stated there is animal feces all over the home in layers. All the furniture has been soaked in urine. APS had been called but because the patient is able to make his own decisions they wouldn't do anything. [facility] IS REFUSING TO DO IV ANTIBIOTICS IN THE HOME. CM relayed this information to nursing staff and CM electrical supervisor. CM will continue to follow and assist as needed with discharge planning / needs. DCP- Discharge Planning Updated by [email or web address]: Indigo Meier on 04/14/19 2:[address] Patient Name: YUKI ESPINOZA Admission Status: ER Accout number: [id number] Admission Date: 04-13-2019 : 1960 Admission Diagnosis: Attending: MONALISA HOOPER Current LOS: 1 Anticipated DC Date: Planned Disposition: Home with Home Health Primary Insurance: WELLC[employer] MEDICARE ADV Discharge Planning Comments: CM called significant other Lois [phone] after explaining CM role and obtaining verbal consent. Patient lives at home with his Lois where he is total care and plans to return there upon discharge. Patient feels this would be a safe discharge. CM discussed availability / needs of home health and medical equipment. Patient has Home Hel[facility] services with [facility] and plans to resume care with them MICHELLE signed. Patient denies any discharge needs at this time. Patient will need ambulance transfer home. CM will continue to follow and assist as needed with discharge planning / needs. Cable Puller: Indigo Meier DCPIA - Discharge Planning Initial Assessment Updated by [email or web address]: Indigo Meeir on 04/14/19 2:59 pm * Is the patient Alert and Oriented? No * How many steps to enter\exit or inside your home? * PCP VALDEMAR * Pharmacy [facility] * Preadmission Environment Home with Family * ADLs Total Dependent * Other Equipment HOSP BED, TRAPEZE BAR, JASWANT LIFT, SC, BSC, W/C, WALKER * List name and contact numbers for known caregivers / representatives who currently or will assist patient after discharge: LOIS VIVEROS - SIGNIFICANT OTHER- [phone] * Verbal permission to speak to the caregivers and representatives has been obtained from the patient. Yes * Community resources currently utilized Home Health * Please name any agencies selected above. [facility], [facility], [facility] * Additional services required to return to the preadmission environment? No * Can the patient safely return to the preadmission environment? Yes * Has this patient been hospitalized within the prior 30 days at any hospital? Yes External Providers External Provider: [facility] Next Contact Date: Service Request Date: Service Type: Resolution: Reviewer: Comments: Last DP export: 04/18/19 12:59 p Patient Name: YUKI ESPINOZA Page [id number] at 1429 All edits/amendments must be made on the electronic document DICTATION DATE: 04/18/191427 SPECIAL EDUCATION PRESCHOOL TEACHER: SHAHANA 04/18/191427 RPT#: [id number] DC DATE: STATUS: ADM IN [facility] [address] [place] [address] END OF REPORT
--- NOTE | 2019-04-18 15:31 | NUR ---
PT RESTING COMFORTABLY IN BED WITH EYES CLOSED, CALL LIGHT IN REACH, BEDSIDE RAILS X2, NAD NOTED, WILL CONTINUE TO MONITOR.
[2019-04-18 15:42] VITALS: Ht 193 cm; Wt 158.8 kg
[2019-04-18 16:46] VITALS: BP 109/70
--- NOTE | 2019-04-18 17:33 | NUR ---
CLEANED PT UP FROM INCONT EPISODE, COMPLETE LINEN CHANGE. ALSO PROVIDED DRESSING CHANGE TO LT FOOT AND RT FOOT. REPOSITIONED PT IN BED, PT DENIES ANY OTHER NEEDS AT THIS TIME. CALL LIGHT IN REACH, NAD NOTED.
[2019-04-18 19:00] VITALS: BP 112/72
[2019-04-18 23:00] VITALS: BP 110/75
[2019-04-19 03:00] VITALS: BP 112/72
[2019-04-19 05:24] LABS: BASOPHILS 0.2 % (0-2); EOSINOPHILS 2.7 % (0-7); HEMATOCRIT 25.6 % (42.0-54.0); HEMOGLOBIN 8.3 g/dL (13.5-17.5); IMMATURE GRANULOCYTES 0.2 % (0-5); LYMPHOCYTES 32.1 % (15-50); MCH 30.2 pg (26.0-34.0); MCHC 32.4 g/dL (31.0-37.0); MCV 93.1 fL (80.0-100.0); MEAN PLATELET VOLUME 11.3 fL (7.4-10.4); MONOCYTES 7.2 % (2-11); NEUTROPHILS 57.6 % (40-80); PLATELET COUNT 188 10x3/uL (130-400); RBC 2.75 10x6/uL (4.20-6.10); RDW 17.2 % (11.5-14.5); WBC 5.6 10x3/uL (4.8-10.8)
[2019-04-19 05:36] LABS: ANION GAP 9.8 mmol/L (8-16); CALCIUM 8.2 mg/dL (8.5-10.1); CARBON DIOXIDE 29.6 mmol/L (21.0-32.0); CREATININE - SERUM 1.8 mg/dL (0.6-1.3); MAGNESIUM - SERUM 1.8 mg/dL (1.8-2.4); PHOSPHOROUS 3.9 mg/dL (2.5-4.9); POTASSIUM - SERUM 3.4 mmol/L (3.5-5.1)
--- NOTE | 2019-04-19 07:26 | NUR ---
PT RESTING, EYES CLOSED. RR EVEN AND UNLABORED. WILL CONTINUE TO MONITOR.
[2019-04-19 09:39] VITALS: BP 117/76
--- NOTE | 2019-04-19 10:42 | NUR ---
PT REFUSED ALL MEDICATIONS THIS MORNING.
[2019-04-19 11:05] VITALS: BP 103/70
--- NOTE | 2019-04-19 11:10 | EC ---
PATIENT:YUKI ESPINOZA DATE OF SERVICE: 04/13/19 SEX: M MEDICAL RECORD: [id number] DATE OF : [birth year] LOCATION:D.M3 D.120 AGE OF PATIENT: 58 ADMISSION DATE: 04/13/19 REFERRING PHYSICIAN: INTERPRETING PHYSICIAN: SHO CHAPA MD ECHOCARDIOGRAM REPORT ECHO CHARGES 5 ECHO LIMITED Date: 04/18/19 1 DOPPLER ECHO COLOR FLOW CLINICAL DIAGNOSIS: R/O VEG ECHOCARDIOGRAPHIC MEASUREMENTS (adult normal given) AC root (d.<3.7cm) 0 cm LV Septum d (<1.2 cm> 0 cm Valve Excursion 0 cm LV Septum (systole) 0 cm Left Atria (s.<4.0cm> 0 cm LVPW d(<1.2cm) 0 cm RV (d.<2.3cm) 0 cm LVPW (sytole) 0 cm LV diastole(<5.6CM) 0 cm MV E-F(>70mm/sec) 0 cm LV systole 0 cm LVOT Diameter 0 cm MV exc.(>10mm) 0 cm Est.ejection fraction (50-75%) % DOPPLER: LVIT cm/sec A 0 cm/sec E 0 cm/sec LA 0 cm/sec RVSP 0 mmHg LVOT 0 cm/sec AOP1/2T 0 m/s Asc. Ao 0 cm/sec RVOT 0 cm/sec RA 0 cm/sec PA 0 cm/sec AV Gradient Peak 0 mmHg AV Mean 0 mmHg AV Area 0 cm MV Gradient Peak 0 mmHg MV Mean 0 mmHg MV Area 0 cm COMMENTS: 0 Commercial Construction Superintendent: Janice JOYNER Streetcar Repairer Helper: 1 Dr. Chapa TAPE# PACS Pericardial Effusion Y DATE OF SERVICE: 04/18/2019 FINDINGS: 1. Left ventricular chamber size is within normal limits. Left ventricular systolic function is normal. Overall ejection fraction estimated at 55%. 2. Left atrium, right atrium, and right ventricular chamber sizes are within normal limits. 3. Valvular structures have normal structure and motion. There is no evidence of vegetative endocarditis. 4. Doppler interrogation reveals mild mitral regurgitation, mild tricuspid ECHOCARDIOGRAM REPORT [id number] YUKI ESPINOZA regurgitation, no other valvular insufficiency or stenosis. 5. Small pericardial effusion is present. This is not hemodynamically significant. TRANSINT:[id number] Voice Confirmation ID: [id number] DOCUMENT ID: [id number] SHO CHAPA MD at 1110 CC: [id number] DICTATION DATE: 04/18/19 1634 NURSERY NURSE: 04/18/19 2105 ADM IN [place] [id number] [place] [id number]
--- NOTE | 2019-04-19 12:08 | MORECARE ---
CASE MANAGEMENT DISCHARGE SUMMARY PATIENT: YUKI ESPINOZA UNIT: [id number] ADM DATE: 04/13/19 AGE: 58 : 62 SEX: M ROOM/BED: D.1204 AUTHOR: SUYAPA VEGA PHYSICIAN: REFERRING PHYSICIAN: MONALISA HOOPER DO DATE OF SERVICE: 04/19/19 Discharge Plan Patient Name: YUKI ESPINOZA Facility: [facility]:[place] : 1960 Planned Disposition: Home with Home Health Anticipated Discharge Date: Discharge Date: Expected LOS: Initial Reviewer: [email or web address] Initial Review Date: 04/13/2019 Generated: 04/19/19 1:07 pm Comments DCP- Discharge Planning Updated by [email or web address]: Indigo Meier on 04/19/19 11:[address] CM met with Lois (caregiver and POA) at this time they have decided to go [facility] with [facility] discharge. Lois has spoken to Isis Jama [phone] @ [facility] and has made arrangements to admit after discharge. CM called and spoke with Nadeen career development coordinator @ [facility] [phone]. fax [phone]. CM will send clinical information to [facility] per request. MAIRA will contacted July with [facility] to let her know plan for stopping services. CM will continue to follow and assist with discharge planning / needs. DCP- Discharge Planning Updated by [email or web address]: Evelyne Wilson on 04/16/19 10:[address] CM RECEIVED A TELEPHONE CALL FROM THE [facility] NURSE. THE PATIENT HAS A DISCHARGE ORDER. CM NOTE STATES THE HOME HEALTH PROVIDER STATED HIS ENVIRONMENT IS UNSAFE.. HOME HEALTH WILL NOT PROVIDE SERVICE. THE NURSE SPOKE WITH THE . SHE HAS NO OTHER PLACE TO GO WITH THE PATIENT. HE CANNOT BE SAFELY DISCHARGED TODAY. THE EXPERIMENTAL PREFLIGHT MECHANIC WILL NEED TO NOTIFY THE HEAD OF CONSERVATION FOR AN ALTERNATIVE ON THURSDAY. HE HAS A MANAGED MEDICARE PROVIDER. DCP- Discharge Planning Updated by [id number]: Indigo Meier on 04/15/19 3:[address] CM received notice today that patient will need to go home with 7 days of IV antibiotics. CM spoke with July at [facility] that the plan was for patient to go home with IV antibiotics. July called back later and stated that their hyperion administrator says that it isn't safe for patient to get IV antibiotics in the home d/t home conditions. She stated there is animal feces all over the home in layers. All the furniture has been soaked in urine. APS had been called but because the patient is able to make his own decisions they wouldn't do anything. [facility] IS REFUSING TO DO IV ANTIBIOTICS IN THE HOME. CM relayed this information to nursing staff and CM communications equipment supervisor. CM will continue to follow and assist as needed with discharge planning / needs. DCP- Discharge Planning Updated by [email or web address]: Indigo Meier on 04/14/19 2:[address] Patient Name: YUKI ESPINOZA Admission Status: ER Accout number: [id number] Admission Date: 04-13-2019 : 1960 Admission Diagnosis: Attending: MONALISA HOOPER Current LOS: 1 Anticipated DC Date: Planned Disposition: Home with Home Health Primary Insurance: WELLCARE MEDICARE ADV Discharge Planning Comments: CM called significant other Lois [phone] after explaining CM role and obtaining verbal consent. Patient lives at home with his Lois where he is total care and plans to return there upon discharge. Patient feels this would be a safe discharge. CM discussed availability / needs of home health and medical equipment. Patient has Home Hel[facility] services with [facility] and plans to resume care with them MICHELLE signed. Patient denies any discharge needs at this time. Patient will need ambulance transfer home. CM will continue to follow and assist as needed with discharge planning / needs. [employer] Teacher: Indigo Meier DCPIA - Discharge Planning Initial Assessment Updated by [email or web address]: Indigo Meier on 04/14/19 2:59 pm * Is the patient Alert and Oriented? No * How many steps to enter\exit or inside your home? * PCP VALDEMAR * Pharmacy [facility] * Preadmission Environment Home with Family * ADLs Total Dependent * Other Equipment HOSP BED, TRAPEZE BAR, JASWANT LIFT, SC, BSC, W/C, WALKER * List name and contact numbers for known caregivers / representatives who currently or will assist patient after discharge: LOIS VIVEROS - SIGNIFICANT OTHER- [phone] * Verbal permission to speak to the caregivers and representatives has been obtained from the patient. Yes * Community resources currently utilized Home Health * Please name any agencies selected above. [facility], [facility], [facility] * Additional services required to return to the preadmission environment? No * Can the patient safely return to the preadmission environment? Yes * Has this patient been hospitalized within the prior 30 days at any hospital? Yes Coverage Notice Reviewer: [id number] Marcelino Meier Notice Issued Date-Time: 04/18/2019 14:15 Notice Type: Patient Choice Letter Notice Delivered To: Other Relationship to Patient: Power of Injection Moulding Machine Operator Print Line Inspector Name: LOIS VIVEROS Delivery Method: HAND - Hand Delivered Amberly Days: Prior Verbal Notification: Recipient Understood Notice: Yes Recipient Signature: Yes Med Rec Note Co-signed by Attending: Coverage Notice Comment: Last DP export: 04/18/19 1:29 p Patient Name: YUKI ESPINOZA Page 38819 at 1208 All edits/amendments must be made on the electronic document DICTATION DATE: 04/19/191206 ROUTER OPERATOR: SHAHANA 04/19/191206 RPT#: [id number] DC DATE: STATUS: ADM IN [facility] [address] [place] [address] END OF REPORT
--- NOTE | 2019-04-19 12:27 | MORECARE ---
CASE MANAGEMENT DISCHARGE SUMMARY PATIENT: YUKI ESPINOZA UNIT: [id number] ADM DATE: 04/13/19 AGE: 58 : 62 SEX: M ROOM/BED: D.1204 AUTHOR: SILVIADOC PHYSICIAN: REFERRING PHYSICIAN: MONALISA HOOPER DO DATE OF SERVICE: 04/19/19 Discharge Plan Patient Name: YUKI ESPINOZA Facility: [facility]:[place] : 1960 Planned Disposition: Home with Home Health Anticipated Discharge Date: Discharge Date: Expected LOS: Initial Reviewer: [email or web address] Initial Review Date: 04/13/2019 Generated: 04/19/19 1:26 pm Comments DCP- Discharge Planning Updated by [email or web address]: Indigo Meier on 04/19/19 11:[address] CM spoke with Nadeen @ [facility] and notified her that patient is discharging home today. Nadeen stated she will have a nurse out to admit later today. CM notified nursing that Hospice is ready to admit at the home today. CM advised nursing that patient will need Ambulance transfer home and will need transfer paperwork completed for discharge. CM also requested that nursing call Lois when ambulance picks up so she can have the dogs put up upon arrival. CM called Lois and notified her that we have got d/c orders and as soon as paperwork is complete ambulance will be notified for transport. CM expressed that nursing will call when patient is picked up. D/C IMM signed @ 1215. CM will continue to follow and assist as needed with discharge planning / needs. DCP- Discharge Planning Updated by [id number]: Indigo Meier on 04/19/19 11:[address] CM met with Lois (caregiver and POA) at this time they have decided to go [facility] with [facility] discharge. Lois has spoken to Isis Jama [phone] @ [facility] and has made arrangements to admit after discharge. CM called and spoke with Nadeen branch employment coordinator @ [facility] [phone]. fax [phone]. CM will send clinical information to [facility] per request. MAIRA will contacted July with [facility] to let her know plan for stopping services. CM will continue to follow and assist with discharge planning / needs. DCP- Discharge Planning Updated by [id number]: Evelyne Wilson on 04/16/19 10:[address] CM [facility] THE PATIENT HAS A DISCHARGE ORDER. CM NOTE STATES THE HOME HEALTH PROVIDER STATED HIS ENVIRONMENT IS UNSAFE.. HOME HEALTH WILL NOT PROVIDE SERVICE. THE NURSE SPOKE WITH THE . SHE HAS NO OTHER PLACE TO GO WITH THE PATIENT. HE CANNOT BE SAFELY DISCHARGED TODAY. THE FRANCHISE SALES MANAGER WILL NEED TO NOTIFY THE CLINICAL PROFESSOR FOR AN ALTERNATIVE ON THURSDAY. HE HAS A MANAGED MEDICARE PROVIDER. DCP- Discharge Planning Updated by [email or web address]: Indigo Meier on 04/15/19 3:[address] CM received notice today that patient will need to go home with 7 days of IV antibiotics. CM spoke with July at [facility] that the plan was for patient to go home with IV antibiotics. July called back later and stated that their senior linux administrator says that it isn't safe for patient to get IV antibiotics in the home d/t home conditions. She stated there is animal feces all over the home in layers. All the furniture has been soaked in urine. APS had been called but because the patient is able to make his own decisions they wouldn't do anything. [facility] IS REFUSING TO DO IV ANTIBIOTICS IN THE HOME. CM relayed this information to nursing staff and CM supervisor in circuit testing. CM will continue to follow and assist as needed with discharge planning / needs. DCP- Discharge Planning Updated by [email or web address]: Indigo Meier on 04/14/19 2:[address] Patient Name: YUKI ESPINOZA Admission Status: ER Accout number: [id number] Admission Date: 04-13-2019 : 1960 Admission Diagnosis: Attending: MONALISA HOOPER Current LOS: 1 Anticipated DC Date: Planned Disposition: Home with Home Health Primary Insurance: [employer] ADV Discharge Planning Comments: CM called significant other Lois [phone] after explaining CM role and obtaining verbal consent. Patient lives at home with his Lois where he is total care and plans to return there upon discharge. Patient feels this would be a safe discharge. CM discussed availability / needs of home health and medical equipment. Patient has [facility] services with [facility] and plans to resume care with them MICHELLE signed. Patient denies any discharge needs at this time. Patient will need ambulance transfer home. CM will continue to follow and assist as needed with discharge planning / needs. Manager Exchange: Indigo Meier DCPIA - Discharge Planning Initial Assessment Updated by [email or web address]: Indigo Meier on 04/14/19 2:59 pm * Is the patient Alert and Oriented? No * How many steps to enter\exit or inside your home? * PCP VALDEMAR * Pharmacy [facility] * Preadmission Environment Home with Family * ADLs Total Dependent * Other Equipment HOSP BED, TRAPEZE BAR, JASWANT LIFT, SC, BSC, W/C, WALKER * List name and contact numbers for known caregivers / representatives who currently or will assist patient after discharge: LOIS VIVEROS - SIGNIFICANT OTHER- [phone] * Verbal permission to speak to the caregivers and representatives has been obtained from the patient. Yes * Community resources currently utilized Home Health * Please name any agencies selected above. [facility], [facility], [facility] * Additional services required to return to the preadmission environment? No * Can the patient safely return to the preadmission environment? Yes * Has this patient been hospitalized within the prior 30 days at any hospital? Yes Coverage Notice Reviewer: [id number] - Indigo Meier Notice Issued Date-Time: 04/18/2019 14:15 Notice Type: Patient Choice Letter Notice Delivered To: Other Relationship to Patient: Power of Manager Drive Unclaimed Property Manager Name: LOIS VIVEROS Delivery Method: HAND - Hand Delivered Amberly Days: Prior Verbal Notification: Recipient Understood Notice: Yes Recipient Signature: Yes Med Rec Note Co-signed by Attending: Coverage Notice Comment: Last DP export: 04/19/19 11:08 a Patient Name: YUKI ESPINOZA Page [id number] at 1227 All edits/amendments must be made on the electronic document DICTATION DATE: 04/19/196 SADDLE TREE STITCHER: SHAHANA 04/19/196 RPT#: [id number] DC DATE: STATUS: ADM IN [facility] [address] [place] [address] END OF REPORT
--- NOTE | 2019-04-19 12:28 | NUR ---
BED BATH RECIEVED. LINENS CHANGED.
--- NOTE | 2019-04-19 13:00 | NUR ---
MONITOR RETURNED TO DENTAL OFFICE ASSISTANT. PICC LINE REMOVED BY RN, CATHETER TIP INTACT. AMBULANCE SERVICE CALLED FOR TRANSPORTATION.
--- NOTE | 2019-04-19 16:39 | NUR ---
PT LEFT VIA AMBULANCE WITH D/C PAPERWORK. NO BELONGINGS WERE HERE TO TAKE WITH HIM.
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
== END 2019-04-19 16:40 | disposition home health service (06) | DRG 698 ==
LOC: D.ER 15:32 → D.M3 19:17
PROVIDERS: Family Medicine; Radiology Diagnostic Radiology; ADMIT Family Medicine; ATTEND Family Medicine
PROC: B548ZZA Ultrasonography of Superior Vena Cava, Guidance (ICD-10-PCS; 2019-04-15)
PROC: 02HV33Z Insertion of Infusion Device into Superior Vena Cava, Percutaneous Approach (ICD-10-PCS; principal; 2019-04-15 16:38)
DX: T83.518A Infection and inflammatory reaction due to other urinary catheter, initial encounter (principal); A41.9 Sepsis, unspecified organism; I50.23 Acute on chronic systolic (congestive) heart failure; N39.0 Urinary tract infection, site not specified; T82.7XXA Infection and inflammatory reaction due to other cardiac and vascular devices, implants and grafts, initial encounter; I13.0 Hypertensive heart and chronic kidney disease with heart failure and stage 1 through stage 4 chronic kidney disease, or unspecified chronic kidney disease; I42.0 Dilated cardiomyopathy; N17.9 Acute kidney failure, unspecified; E11.22 Type 2 diabetes mellitus with diabetic chronic kidney disease; N18.9 Chronic kidney disease, unspecified; D64.9 Anemia, unspecified; L89.159 Pressure ulcer of sacral region, unspecified stage; L89.620 Pressure ulcer of left heel, unstageable; E11.621 Type 2 diabetes mellitus with foot ulcer; L97.519 Non-pressure chronic ulcer of other part of right foot with unspecified severity; K21.9 Gastro-esophageal reflux disease without esophagitis; Z79.01 Long term (current) use of anticoagulants; B96.5 Pseudomonas (aeruginosa) (mallei) (pseudomallei) as the cause of diseases classified elsewhere; Y84.9 Medical procedure, unspecified as the cause of abnormal reaction of the patient, or of later complication, without mention of misadventure at the time of the procedure; Z86.73 Personal history of transient ischemic attack (TIA), and cerebral infarction without residual deficits